=== PATIENT | female | born 1935 | race Caucasian/White ===

== ENCOUNTER 2019-11-04 08:16 | Inpatient (IN) ==
[2019-11-04] MEDS ORDERED: PANTOprazole 80 MG in DEXTROSE 5% 100 ML IV ONE (08:31)
[2019-11-04] MEDS ORDERED: SODIUM CHLORIDE 0.9% 1000ML 1,000 ML IV SCH (08:45)
[2019-11-04] MEDS ORDERED: PANTOprazole 40 MG in DEXTROSE 5% 100 ML IV SCH (08:45)
[2019-11-04 08:48] LABS: Basophils # (auto) 0.04 K/uL (0-0.2); Basophils % (auto) 0.2 %; Eosinophils # (auto) 0.05 K/uL (0-0.5); Eosinophils % (auto) 0.2 %; Hematocrit (blood only) 41.2 % (37-47); Hemoglobin 13.7 g/dL (12.0-16.0); Immature Granulocytes # (auto) 0.08 K/uL (0.00-0.02); Immature Granulocytes % (auto) 0.4 %; Lymphocytes # (auto) 2.85 K/uL (1.2-3.4); Lymphocytes % (auto) 13.8 %; Mean Corpuscular Hemoglobin 32.1 pg (25-34); Mean Corpuscular Hgb Conc 33.3 g/dL (32-36); Mean Corpuscular Volume 96.5 fL (80-100); Mean Platelet Volume 10.3 fL (7.4-10.4); Monocytes # (auto) 1.12 K/uL (0.11-0.59); Monocytes % (auto) 5.4 %; Neutrophils # (auto) 16.55 K/uL (1.4-6.5); Platelet Count 389 K/uL (130-400); RDW Coefficient of Variation 13.3 % (11.5-14.5); RDW Standard Deviation 46.8 fL (36.4-46.3); Red Blood Count 4.27 M/uL (4.2-5.4); White Blood Count 20.69 K/uL (4.8-10.8)
[2019-11-04 08:59] LABS: Albumin Level 2.8 gm/dl (3.4-5.0); BUN Creatinine Ratio 25.1 (10-20); Calcium 8.6 mg/dl (8.5-10.1); Creatinine Clr Calc Pharmacy 38.8 ml/min; Est GFR (African American) 61.8; Est GFR (Non-African American) 53.3; INR 1.1 (0.9-1.1); Partial Thromboplastin Ratio 0.9; Partial Thromboplastin Time 25.6 Seconds (21.0-31.0); Potassium 3.4 mmol/L (3.5-5.1); Prothrombin Time 11.9 Seconds (9.0-12.0)
[2019-11-04 09:02] LABS: Albumin Globulin Ratio 0.7 (0.9-2); Globulin 4.2 gm/dl (2.5-4.0)
[2019-11-04] MEDS ORDERED: AMPICILLIN/SULBACTAM SOD 3,000 MG in 0.9 % SODIUM CHLORIDE 100 ML IV STA (09:58)
[2019-11-04] MEDS ORDERED: IOVERSOL 100ml IV ONE (10:10)
--- NOTE | 2019-11-04 10:42 | CT Scan Report ---
CT OF THE ABDOMEN AND PELVIS WITH CONTRAST CLINICAL HISTORY: abd pain, BRBPR, elev WBC COMPARISON STUDY: None. TECHNIQUE: Following IV administration of 94 mL of Optiray-320, axial images of the abdomen and pelvi s were obtained from the lung bases to the proximal femurs. Images were reviewed in the axial, sagitt al, and coronal planes. IV contrast was administered without complication. Automated exposure contro l was utilized for the study. A dose lowering technique was utilized adhering to the principles of A MAR. CT DOSE: 560.77 mGy.cm FINDINGS: Lung bases are unremarkable. No pneumatosis, free air or portal venous gas is present. Ther e is mild elevation of the left hemidiaphragm. Note is made of a 1.6 cm hypodense lateral segment hep atic lesion adjacent to the falciform ligament. This may have peripheral enhancement. There is modera te dilatation of the common bile duct, measuring 1.5 cm in caliber. Diverticulum of the second duoden um is noted. There are gallstones within the gallbladder. Gallbladder is mildly distended. There is n o pericholecystic infiltration. The spleen, adrenal glands and left kidney are unremarkable. A 1.4 cm lesion within the midpole of the right kidney measures above water attenuation. There is sigmoid div erticulosis without evidence for acute diverticulitis. Note is made of a 2 cm outpouching with wall t hickening and moderate inflammation of the jejunum shown on axial image 220 of 476. Numerous addition al small bowel diverticula are noted. Endometrium is prominent. There is no evidence for a bowel obst ruction. No suspicious osseous lesions are noted. There is grade II anterolisthesis of L5 on S1 due t o bilateral L5 pars defects. IMPRESSION: 1. 2 cm jejunal outpouching with wall thickening and moderate inflammation consistent with acute jeju nal diverticulitis. No free air or abscess. 2. Moderate dilatation of the common bile duct. Findings could be correlated with obstructive liver f unction tests. 3. 2 probable gallstones. Mild gallbladder distention without convincing evidence for acute cholecyst itis. 4. 1.6 cm hypodense lesion within the lateral segment of the liver. This could reflect a hemangioma o r complex cyst. However, this lesion is indeterminate and a follow-up right upper quadrant ultrasound is recommended. 5. 1.4 cm right renal lesion which may reflect a hyperdense cyst or solid renal lesion. This can be a ssessed on right upper quadrant ultrasound. 6. Endometrial prominence which should be correlated with history of postmenopausal bleeding. Follow- up pelvic ultrasound is also recommended. ACT 112: Negative or not required by law. Electronically signed by: Nile Jacobs M.D. 11/04/2019 10:40 AM
--- NOTE | 2019-11-04 11:06 | History & Physical Report ---
Date of Service November 04, 2019 Assessment & Plan (1) Diverticulitis of jejunum: Zosyn 4.5 mg IV q8H (renally dosed per pharmacy) Follow-up blood cultures NPO IV LR 125ml/hr (2) Epigastric pain: Secondary to above (3) Black stool: Hgb 13.7 on admission. Suspect much of this was pepto-bismol although patient reports started prior to this. Repeat H&H this afternoon. If stable can switch from IV drip to pantoprazole 40mg IV BID. Consult gastroenterology. (4) Bright red blood per rectum: As above. No etiology on CT to account for this. (5) Liver lesion: LFTs unremarkable. Routine US RUQ. (6) Renal lesion: US RUQ as above. (7) Thickened endometrium: Follow up with PCP with pelvic US. (8) HTN (hypertension): Hold lisinopril/hydrochlorothiazide in setting of low normal blood press ure (9) Hyperlipemia: Hold lovastatin (10) DVT prophylaxis: SCDs Admission and Anticipated Discharge Date Admission Date: 11/04/2019 History of Present Illness Chief Complaint: Melena, bright red blood per rectum, epigastric pain. Primary Care Provider: MILLICENT Romano Suzi Mei is an 84 year old female who presents to the ER with 2 weeks of black stool and epigastric pain. She reports never having GI problems prior to this. No increase in NSAIDs or aspirin. Epigastric/left-sided abdominal pain, no radiation, no association with food, feels like "sandpaper scraping", current severity 0/10 without palpation, change in feeling with Pepto-Bismol which appeared to help. Initially associated with chills. Black stools started prior to Pepto-Bismol and have continued with small amounts over the last 2 weeks. [place] she may have been constipated during the last week and took 1 dose of MiraLAX which did not significantly alter her bowel movements. No associated nausea, vomiting or hematemesis. Usually takes Aleve once a week, not had this for a number of days. Takes daily aspirin 81 mg although also stopped this 3 days ago. Associated decrease in appetite for the last 2 weeks. She has never had a colonoscopy or EGD. She was seen during the two week illness by her primary care physician who performed fecal occult blood which was reportedly negative per patient recollection. She notes 1 of her liver enzymes was mildly elevated therefore she was advised to stop her lovastatin. She was started on pantoprazole but only taken this for the last 2 days. This morning she had very large bowel movements with bright red blood and dark maroon stool. She managed to walk downstairs but was feeling weak and shaky therefore called her daughter. She had a second large bowel movement and felt she could not wait for her daughter therefore called an ambulance. She denies any cough, shortness of breath, COVID-19 exposure. Updated the patient's daughter by her request - Maida Ruano - (daughter) [phone]. Allergies Allergy/AdvReac Type Severity Reaction Status Date / Time No Known Allergies Allergy Unverified 11/04/19 10:05 Home Medications Home Medications Medication Instructions Recorded Confirmed Type Glucosamine Chondroitin 1 cap PO QAM 07/26/18 11/04/19 History aspirin 81 mg PO DAILY 07/26/18 11/04/19 History ergocalciferol (vitamin D2) 50,000 unit PO WK 07/26/18 11/04/19 History [Vitamin D2] ginkgo biloba 120 mg PO QAM 07/26/18 11/04/19 History lisinopril-hydrochlorothiazide 1 tab PO QAM 07/26/18 11/04/19 History naproxen sodium [Aleve] 220 mg PO BID PRN 07/26/18 11/04/19 History lovastatin 10 mg PO DAILY 11/04/19 11/04/19 History pantoprazole 20 mg PO DAILY 11/04/19 11/04/19 History Past Med/Surg History Medical History Arthritis Hearing deficit [place] HTN (hypertension) Hyperlipemia Poor historian Surgical History H/O varicose vein stripping History of hemorrhoidectomy History of right inguinal hernia repair History of tooth extraction History of tubal ligation Family History Mother Family history of diabetes mellitus Social History Smoking Status: Never smoker Second Hand Exposure: No; Hx Alcohol Use: No Hx Substance Use: No Preferred Language: Chinese Communication Ability: Effective 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 No postmenopausal bleeding/bloating. Physical Exam Constitutional: well developed, well nourished and + obese; no acute distress Eyes: + anicteric sclerae; normal pupil size ENMT: external ear and nose normal, oropharynx normal Ears: + hearing impairment Neck: trachea midline, no thyromegaly Respiratory: normal respiratory effort, lungs clear to auscultation Cardiovascular: Rate/Rhythm: regular rate and regular rhythm Heart Sounds: + murmur (systolic, loudest in apex) Vessels: no JVD Extremities: normal capillary refill; no calf tenderness and no pedal edema Gastrointestinal (Abdomen): Inspection/Auscultation: abdomen normal to inspection and + hyperactive bowel sounds; abdomen not distended Percussion/Palpation: + abdomen tender (LUQ) and abdomen soft; no guarding and abdomen not rigid Musculoskeletal: no cyanosis or clubbing, extremities motor strength 5/5 Skin: no rashes, warm and dry Neurologic: moves all extremities and awake; not confused Psychiatric: A+Ox3, euthymic affect Genitourinary: no CVA tenderness Lymphatic: no cervical or axillary lymphadenopathy Results & Data Results & Data ([facility]) Vital Signs (Past 12 Hours) Vital Signs Temp Pulse Resp BP Pulse Ox 11/04/19 10:30 81 23 114/57 L 94 11/04/19 10:00 88 14 113/57 L 11/04/19 09:42 87 19 115/68 94 11/04/19 09:30 86 23 95 11/04/19 09:00 93 H 20 95 11/04/19 08:30 103 H 20 96 11/04/19 08:28 37.0 C 97 H 16 115/69 97 11/04/19 08:24 97 H 22 96 11/04/19 08:19 100 H 115/[address] OF THE ABDOMEN AND PELVIS WITH CONTRAST IMPRESSION: 1. 2 cm jejunal outpouching with wall thickening and moderate inflammation consistent with acute jejunal diverticulitis. No free air or abscess. 2. Moderate dilatation of the common bile duct. Findings could be correlated with obstructive liver function tests. 3. 2 probable gallstones. Mild gallbladder distention without convincing evidence for acute cholecystitis. 4. 1.6 cm hypodense lesion within the lateral segment of the liver. This could reflect a hemangioma or complex cyst. However, this lesion is indeterminate and a follow-up right upper quadrant ultrasound is recommended. 5. 1.4 cm right renal lesion which may reflect a hyperdense cyst or solid renal lesion. This can be assessed on right upper quadrant ultrasound. 6. Endometrial prominence which should be correlated with history of postmenopausal bleeding. Follow-up pelvic ultrasound is also recommended. ECG Indication: abdominal pain Rate (beats per minute): 97 Rhythm: normal sinus Comparison ECG Date: from (Aug 01 2018) Change: no significant change Code Status & VTE Plan Code Status DNR/DNI VTE Prophylaxis Plan VTE Prophylaxis will be ordered: Yes Reason for no VTE drug order: Contraindicated PG Care Time/CCT Total # of Minutes Spent Total Time Spent with Patient: Total time spent is greater than 50% in coordination of care (as documented) at patient's floor/unit and/or counseling patient: Coding Level of Care Code 05976 Initial Inpt Care Lvl 3 Diagnoses Diverticulitis of jejunum K57.12 Epigastric pain R10.13 Black stool K92.1 Bright red blood per rectum K62.5 Liver lesion K76.9 Renal lesion N28.9 Thickened endometrium R93.89 HTN (hypertension) I10 Hyperlipemia E78.5 DVT prophylaxis Z29.9
--- NOTE | 2019-11-04 13:14 | Emergency Department Note ---
History of Present Illness General Chief complaint: GI Assessment Source: patient and RN notes reviewed Mode of arrival: EMS Limitations: no limitations History of Present Illness Provider complaint: Bright red blood per rectum This patient is an 84-year-old female who presents emergency department with complaints of bright red blood per rectum this morning. The patient states she had a large bout of BM with blood "everywhere." She has had some upper abdominal discomfort and dark stools over the last several weeks and was told by her PCP to stop taking her cholesterol medication. The patient has been taking her aspirin daily as well as Aleve as needed. Patient denies any vomiting or severe abdominal pain. She has had no fever, cough, chest pain or shortness of breath. Home Medications Home Medications Medication Instructions Recorded Confirmed Type Glucosamine Chondroitin 1 cap PO QAM 07/26/18 11/04/19 History aspirin 81 mg PO DAILY 07/26/18 11/04/19 History ergocalciferol (vitamin D2) 50,000 unit PO WK 07/26/18 11/04/19 History [Vitamin D2] ginkgo biloba 120 mg PO QAM 07/26/18 11/04/19 History lisinopril-hydrochlorothiazide 1 tab PO QAM 07/26/18 11/04/19 History naproxen sodium [Aleve] 220 mg PO BID PRN 07/26/18 11/04/19 History lovastatin 10 mg PO DAILY 11/04/19 11/04/19 History pantoprazole 20 mg PO DAILY 11/04/19 11/04/19 History Allergies Allergy/AdvReac Type Severity Reaction Status Date / Time No Known Allergies Allergy Unverified 11/04/19 10:05 Past Med/Surg History Medical History Arthritis Hearing deficit [place] HTN (hypertension) Hyperlipemia Poor historian Surgical History H/O varicose vein stripping History of hemorrhoidectomy History of right inguinal hernia repair History of tooth extraction History of tubal ligation Family History Mother Family history of diabetes mellitus Social History Smoking Status: Never smoker Second Hand Exposure: No; Hx Alcohol Use: No Hx Substance Use: No Preferred Language: French Communication Ability: Effective Nuclear Operations Specialist Required: No Beliefs That Will Affect Care: None Current Living Situation: Alone Other Information That Helps Us Care for You: No Feels Safe at Home: Yes Safety Concerns: Feels Safe At This Time Review of Systems See HPI for pertinent positives & negatives. and A total of 10 systems reviewed and were otherwise negative Physical Exam Vital Signs Vital Signs - 24 hr 11/04/19 08:19 11/04/19 08:24 11/04/19 08:28 Temperature 37.0 C Temperature Source Oral Pulse Rate 100 H 97 H 97 H Pulse Rate from SpO2 Sensor 100 H 96 H Pulse Rhythm Regular Pulse Strength Normal Respiratory Rate 22 16 Respiratory Effort / Characteristics Non-Labored Respiratory Depth Normal Respiratory Pattern Regular Blood Pressure 115/69 115/69 Blood Pressure Mean 83 84 Blood Pressure Position Lying Pulse Oximetry 95 96 97 Oxygen Delivery Method Room Air Sepsis Recent Fever Within 48 Hours No Sepsis New/Unexplained Change in Mental Status No Sepsis Action Taken by Nursing No Action Required 11/04/19 08:30 11/04/19 08:36 11/04/19 09:00 Temperature Temperature Source Pulse Rate 103 H 93 H Pulse Rate from SpO2 Sensor 103 H 94 H Pulse Rhythm Pulse Strength Respiratory Rate 20 20 Respiratory Effort / Characteristics Respiratory Depth Respiratory Pattern Blood Pressure Blood Pressure Mean Blood Pressure Position Pulse Oximetry 96 95 Oxygen Delivery Method Room Air Sepsis Recent Fever Within 48 Hours Sepsis New/Unexplained Change in Mental Status Sepsis Action Taken by Nursing 11/04/19 09:30 11/04/19 09:42 11/04/19 10:00 Temperature Temperature Source Pulse Rate 86 87 88 Pulse Rate from SpO2 Sensor 86 87 Pulse Rhythm Pulse Strength Respiratory Rate 23 19 14 Respiratory Effort / Characteristics Respiratory Depth Respiratory Pattern Blood Pressure 115/68 113/57 L Blood Pressure Mean 90 65 Blood Pressure Position Pulse Oximetry 95 94 Oxygen Delivery Method Sepsis Recent Fever Within 48 Hours Sepsis New/Unexplained Change in Mental Status Sepsis Action Taken by Nursing 11/04/19 10:30 11/04/19 11:00 11/04/19 11:30 Temperature Temperature Source Pulse Rate 81 83 85 Pulse Rate from SpO2 Sensor 81 83 86 Pulse Rhythm Pulse Strength Respiratory Rate 23 24 16 Respiratory Effort / Characteristics Respiratory Depth Respiratory Pattern Blood Pressure 114/57 L 106/64 130/74 Blood Pressure Mean 68 72 103 Blood Pressure Position Pulse Oximetry 94 93 95 Oxygen Delivery Method Sepsis Recent Fever Within 48 Hours Sepsis New/Unexplained Change in Mental Status Sepsis Action Taken by Nursing Vital signs reviewed. General: Well-appearing 84-year-old female, in no significant distress. HEENT: No scleral icterus, pale conjunctiva, moist mucous membranes, PERRLA, neck supple. Cardiovascular: Regular rate and rhythm, no extra sounds. Pulmonary: Clear to auscultation bilaterally, normal work of breathing. Abdomen: Soft, minimal epigastric abdominal tenderness, nondistended, positive bowel sounds. Musculoskeletal: Atraumatic, no peripheral edema. Rectal: Bright red blood, guaiac positive. Normal external mucosa. Neurologic: Patient awake alert and oriented x 3 Skin: Warm, dry, no rash Course Administered Medications Discontinued Medications Pantoprazole Sodium 80 mg/ (Dextrose) 100 mls @ 400 mls/hr IV NOW ONE Stop: 11/04/19 08:45 Last Infusion: 11/04/19 10:44 Dose: 0 mls/hr Documented by: [id number] Admin: 11/04/19 09:57 Dose: 400 mls/hr Documented by: [id number] Pantoprazole Sodium 40 mg/ (Dextrose) 100 mls @ 20 mls/hr IV Q5H DIONY Stop: 11/04/19 13:44 Last Admin: 11/04/19 09:42 Dose: 8 mg/hr, 20 mls/hr Documented by: [id number] Sodium Chloride (Nss 1000ml) 1,000 mls @ 100 mls/hr IV .Q10H DIONY Stop: 11/04/19 18:44 Last Admin: 11/04/19 09:42 Dose: 100 mls/hr Documented by: [id number] Ampicillin Sodium/Sulbactam Sodium 3,000 mg/ Sodium Chloride 108 mls @ 200 mls/hr IV NOW STA; Protocol Stop: 11/04/19 10:30 Last Infusion: 11/04/19 10:44 Dose: 0 mls/hr Documented by: [id number] Admin: 11/04/19 10:39 Dose: 200 mls/hr Documented by: [id number] Ioversol (Ioversol 100ml) 94 ml IV ONCE ONE Stop: 11/04/19 10:11 Last Admin: 11/04/19 10:10 Dose: 94 ml Documented by: [id number] Medical Decision Making Differential Diagnosis Differential diagnosis: Etiologies such as esophagitis, variceal bleed, Boerhaaves, Lowell-Walters tear, gastritis, peptic ulcer disease, AVM, inflammatory bowel disease, ischemia, diverticulosis, colitis, malignancy, coagulopathy, thrombocytopenia, fissure, hemorrhoid, epistaxis , as well as others were entertained. Medical Records Attestation: I reviewed the patient's medical records. Home Medications Current Medication List: was personally reviewed by me Laboratory Data Attestation: I reviewed the patient's lab results. Result diagrams: 11/04/19 07:40 11/04/19 07:40 Lab Results 11/04/19 11/04/19 11/04/19 Range/Units 07:40 07:40 07:40 WBC 20.69 H (4.8-10.8) K/uL RBC 4.27 (4.2-5.4) M/uL Hgb 13.7 (12.0-16.0) g/dL Hct 41.2 (37-47) % MCV 96.5 (80-100) fL MCH 32.1 (25-34) pg MCHC 33.3 (32-36) g/dL RDW Std Deviation 46.8 H (36.4-46.3) fL RDW Coeff of Vanesa 13.3 (11.5-14.5) % Plt Count 389 (130-400) K/uL MPV 10.3 (7.4-10.4) fL Immature Gran % (Auto) 0.4 % Neut % (Auto) 80.0 % Lymph % (Auto) 13.8 % [place] % (Auto) 5.4 % Eos % (Auto) 0.2 % Baso % (Auto) 0.2 % Neut # (Auto) 16.55 H (1.4-6.5) K/uL Lymph # (Auto) 2.85 (1.2-3.4) K/uL [place] # (Auto) 1.12 H (0.11-0.59) K/uL Eos # (Auto) 0.05 (0-0.5) K/uL Baso # (Auto) 0.04 (0-0.2) K/uL Immature Gran # (Auto) 0.08 H (0.00-0.02) K/uL PT 11.9 (9.0-12.0) Seconds INR 1.1 (0.9-1.1) APTT 25.6 (21.0-31.0) Seconds PTT Ratio 0.9 Sodium 139 (136-145) mmol/L Potassium 3.4 L (3.5-5.1) mmol/L Chloride 104 (98-107) mmol/L Carbon Dioxide 26 (21-32) mmol/L Anion Gap 9.0 (3-11) BUN 25 H (7-18) mg/dl Creatinine 0.98 (0.6-1.2) mg/dl Est Cr Clr Drug Dosing 38.8 ml/min Est GFR ( Amer) 61.8 Est GFR (Non-Af Amer) 53.3 BUN/Creatinine Ratio 25.1 H (10-20) Glucose 161 H (70-99) mg/dl Calcium 8.6 (8.5-10.1) mg/dl Total Bilirubin 1.0 (0.2-1) mg/dl AST 18 (15-37) U/L ALT 23 (12-78) U/L Alkaline Phosphatase 99 (45-117) U/L Total Protein 7.0 (6.4-8.2) gm/dl Albumin 2.8 L (3.4-5.0) gm/dl Globulin 4.2 H (2.5-4.0) gm/dl Albumin/Globulin Ratio 0.7 L (0.9-2) Lipase 262 (73-393) U/L Blood Type Antibody Screen 11/04/19 Range/Units 09:05 WBC (4.8-10.8) K/uL RBC (4.2-5.4) M/uL Hgb (12.0-16.0) g/dL Hct (37-47) % MCV (80-100) fL MCH (25-34) pg MCHC (32-36) g/dL RDW Std Deviation (36.4-46.3) fL RDW Coeff of Vanesa (11.5-14.5) % Plt Count (130-400) K/uL MPV (7.4-10.4) fL Immature Gran % (Auto) % Neut % (Auto) % Lymph % (Auto) % [place] % (Auto) % Eos % (Auto) % Baso % (Auto) % Neut # (Auto) (1.4-6.5) K/uL Lymph # (Auto) (1.2-3.4) K/uL [place] # (Auto) (0.11-0.59) K/uL Eos # (Auto) (0-0.5) K/uL Baso # (Auto) (0-0.2) K/uL Immature Gran # (Auto) (0.00-0.02) K/uL PT (9.0-12.0) Seconds INR (0.9-1.1) APTT (21.0-31.0) Seconds PTT Ratio Sodium (136-145) mmol/L Potassium (3.5-5.1) mmol/L Chloride (98-107) mmol/L Carbon Dioxide (21-32) mmol/L Anion Gap (3-11) BUN (7-18) mg/dl Creatinine (0.6-1.2) mg/dl Est Cr Clr Drug Dosing ml/min Est GFR ( Amer) Est GFR (Non-Af Amer) BUN/Creatinine Ratio (10-20) Glucose (70-99) mg/dl Calcium (8.5-10.1) mg/dl Total Bilirubin (0.2-1) mg/dl AST (15-37) U/L ALT (12-78) U/L Alkaline Phosphatase (45-117) U/L Total Protein (6.4-8.2) gm/dl Albumin (3.4-5.0) gm/dl Globulin (2.5-4.0) gm/dl Albumin/Globulin Ratio (0.9-2) Lipase (73-393) U/L Blood Type B Positive Antibody Screen NEGATIVE Imaging Data Radiologist's Impression: CT OF THE ABDOMEN AND PELVIS WITH CONTRAST CLINICAL HISTORY: abd pain, BRBPR, elev WBC COMPARISON STUDY: None. TECHNIQUE: Following IV administration of 94 mL of Optiray-320, axial images of the abdomen and pelvis were obtained from the lung bases to the proximal femurs. Images were reviewed in the axial, sagittal, and coronal planes. IV contrast was administered without complication. Automated exposure control was utilized for the study. A dose lowering technique was utilized adhering to the principles of ALARA. CT DOSE: 560.77 mGy.cm FINDINGS: Lung bases are unremarkable. No pneumatosis, free air or portal venous gas is present. There is mild elevation of the left hemidiaphragm. Note is made of a 1.6 cm hypodense lateral segment hepatic lesion adjacent to the falciform ligament. This may have peripheral enhancement. There is moderate dilatation of the common bile duct, measuring 1.5 cm in caliber. Diverticulum of the second duodenum is noted. There are gallstones within the gallbladder. Gallbladder is mildly distended. There is no pericholecystic infiltration. The spleen, adrenal glands and left kidney are unremarkable. A 1.4 cm lesion within the midpole of the right kidney measures above water attenuation. There is sigmoid diverticulosis without evidence for acute diverticulitis. Note is made of a 2 cm outpouching with wall thickening and moderate inflammation of the jejunum shown on axial image 220 of 476. Numerous additional small bowel diverticula are noted. Endometrium is prominent. There is no evidence for a bowel obstruction. No suspicious osseous lesions are noted. 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 IMPRESSION: 1. 2 cm jejunal outpouching with wall thickening and moderate inflammation consistent with acute jejunal diverticulitis. No free air or abscess. 2. Moderate dilatation of the common bile duct. Findings could be correlated with obstructive liver function tests. 3. 2 probable gallstones. Mild gallbladder distention without convincing evidence for acute cholecystitis. 4. 1.6 cm hypodense lesion within the lateral segment of the liver. This could reflect a hemangioma or complex cyst. However, this lesion is indeterminate and a follow-up right upper quadrant ultrasound is recommended. 5. 1.4 cm right renal lesion which may reflect a hyperdense cyst or solid renal lesion. This can be assessed on right upper quadrant ultrasound. 6. Endometrial prominence which should be correlated with history of postmenopausal bleeding. Follow-up pelvic ultrasound is also recommended. ACT 112: Negative or not required by law. Electronically signed by: Nile Jacobs M.D. 11/04/2019 10:40 AM Dictated: 11/04/19 1025 Transcribed: 11/04/19 1025 ECG Data Attestation: I personally reviewed and interpreted this ECG as follows: Indication: + nausea and + other (GIB) Rate (beats per minute): 97 Rhythm: + sinus rhythm ECG Intervals/blocks: + Normal QRS ECG Shepherd: + Normal ECG ST segments: + Normal ST segments and + Nonspecific ST abnormalities ECG Findings: no PACs and no PVCs Blood Pressure Blood Pressure Findings: Normal blood pressure Blood Pressure Disposition: did not require urgent referral MDM Narrative This patient was evaluated and appeared to be in no significant distress. IV access was obtained and laboratory work was drawn. An order for cardiac monitoring was placed and the patient is noted to be in a normal sinus rhythm at 91 bpm. Patient was hydrated with normal saline solution. IV Protonix was initiated after rectal exam reveals bright red blood per rectum. Patient does have epigastric abdominal tenderness and reports dark stools for the last several weeks. CT imaging of the abdomen and pelvis was performed after the patient's laboratory work reveals a WBC of 20,000. Imaging is significant for a jejunal diverticulum with acute diverticulitis. IV Unasyn 3 g was administered. Patient was informed of the findings. She was discussed with the hospitalist who will evaluate the patient for admission and further management. Impression & Plan Diverticulitis of jejunum, Bright red blood per rectum Discharge Plan Visit Data Chief Complaint: GI Assessment ED Provider: Milady Patel Discharge Problem: Diverticulitis of jejunum, Bright red blood per rectum Patient Disposition: Admitted As Inpatient Discharge Instructions Interventions: ED Discharge Assessment Last Done: 11/04/19 12:49
[2019-11-04] MEDS ORDERED: PIPERACILL/TAZOBAC CONSULT ACTIVE PRN (13:55)
[2019-11-04] MEDS ORDERED: PIPERACILLIN/TAZOBACTAM 4.5 GM in DEXTROSE 5% 100 ML IV SCH (13:55)
[2019-11-04] MEDS ORDERED: PIPERACILLIN/TAZOBACTAM 3.375 GM in DEXTROSE 5% 100 ML IV ONE (14:15)
[2019-11-04] MEDS ORDERED: ACETAMINOPHEN 1,000 MG/100 ML VIAL IV PRN (15:00)
[2019-11-04] MEDS ORDERED: LACTATED RINGER'S 1,000 ML IV ONE (15:00)
--- NOTE | 2019-11-04 15:29 | Ultrasound Report ---
ULTRASOUND RIGHT UPPER QUADRANT ABDOMEN CLINICAL HISTORY: Follow-up hepatic and renal lesions. COMPARISON STUDY: Abdominal CT dated 11/04/2019. TECHNIQUE: Real-time, grayscale, and color flow sonography of the right upper quadrant of the abdomen was performed. Images are reviewed in the transverse and longitudinal planes. FINDINGS: Liver: The liver is normal in size and echotexture. There is no intrahepatic biliary ductal dilatatio n. The main portal vein is patent. A complex/septated cyst in the left lobe is seen adjacent to the f alciform ligament. This measures up to 1.9 cm. Gallbladder: The gallbladder is distended with prominent folds. Shadowing gallstones in the fundal re gion measuring up to 1.1 cm. There is no gallbladder wall thickening or pericholecystic fluid. A sono graphic Villanueva's sign is reportedly absent. The common bile duct measures up to 2.0 cm in diameter. Pancreas: Visualized portions of the pancreatic head and body are normal in appearance. The splenic v ein is patent. Right kidney: Survey images of the right kidney demonstrate cortical atrophy. Echotexture is normal. There is no hydronephrosis. There are scattered right renal cysts. A partially exophytic cyst measure s up to 1.3 cm. This corresponds to the lesion seen on CT Ascites: None. IMPRESSION: 1. Cholelithiasis mildly distended gallbladder. There is no sonographic evidence of acute cholecystit is. 2. There is extrahepatic biliary ductal dilatation, with the common bile duct measuring up to 2 cm di ameter. There is no significant intrahepatic biliary ductal dilatation. Correlation with liver functi on studies and serum bilirubin levels will be required. 3. There is a 1.9 cm minimally complex/septated cyst in the left lobe of the liver and a 1.3 cm exoph ytic cyst arising from the right kidney. These correspond to the cystic lesions seen by CT. ACT 112: Negative or not required by law. Electronically signed by: Shan Cali M.D. 11/04/2019 3:27 PM
--- NOTE | 2019-11-04 15:49 | Gastrointestinal Consultation ---
Date of Consultation November 04, 2019 Assessment & Plan (1) Diverticulitis of jejunum: (2) Epigastric pain: (3) Bright red blood per rectum: (4) Black stool: diverticulitis: agree with abx, will need a 7-10 day course. abdominal pain and GI bleeding: possible PUD, plan for EGD to further evaluate tomorrow. NPO postmidnight tonight, clear liquids for now continue IV PPI BID and supportive care rest as per primary team Thank you for allowing me to participate in the care of this patient. History of Present Illness Attending Physician: Mihai Garcia MD 84 yo female here with dark stool and abdominal pains. She notes this has been going on for a few weeks, even prior to her starting pepto bismol which did help her symptoms somewhat. She noted maroon and bright red blood per rectum on wiping as well, notes she used to take NSAIDs daily but has not done this for 1- 2 years. No prior EGD nor colonoscopy. Abdominal pains feels like "sandpaper scraping." She has a hx hemorrhoids as well she says 30 years ago. When she had brbpr this morning she was lightheaded and weak. CT A/P here shows jejunal diverticulitis and gallstones. labs reviewed, hgb 13.7, BUN elevated at 25. Allergies Allergy/AdvReac Type Severity Reaction Status Date / Time No Known Allergies Allergy Unverified 11/04/19 10:05 Home Medications Home Medications Medication Instructions Recorded Confirmed Type Glucosamine Chondroitin 1 cap PO QAM 07/26/18 11/04/19 History aspirin 81 mg PO DAILY 07/26/18 11/04/19 History ergocalciferol (vitamin D2) 50,000 unit PO WK 07/26/18 11/04/19 History [Vitamin D2] ginkgo biloba 120 mg PO QAM 07/26/18 11/04/19 History lisinopril-hydrochlorothiazide 1 tab PO QAM 07/26/18 11/04/19 History naproxen sodium [Aleve] 220 mg PO BID PRN 07/26/18 11/04/19 History lovastatin 10 mg PO DAILY 11/04/19 11/04/19 History pantoprazole 20 mg PO DAILY 11/04/19 11/04/19 History Patient History Medical History Arthritis Hearing deficit [place] HTN (hypertension) Hyperlipemia Poor historian Surgical History H/O varicose vein stripping History of hemorrhoidectomy History of right inguinal hernia repair History of tooth extraction History of tubal ligation Family History Mother Family history of diabetes mellitus Social History Smoking Status: Never smoker Second Hand Exposure: No; Hx Alcohol Use: No Hx Substance Use: No Preferred Language: [place] Communication Ability: Effective Engineering Technician Parking Required: No Beliefs That Will Affect Care: None Current Living Situation: Alone Other Information That Helps Us Care for You: No Feels Safe at Home: Yes Safety Concerns: Feels Safe At This Time Review of Systems Constitutional: no fever, no chills and no weight loss Eyes: as per Subjective / HPI Ear, Nose, Mouth, Throat: as per Subjective / HPI Respiratory: no dyspnea and no dyspnea on exertion Cardiovascular: no chest pain and no palpitations Gastrointestinal: as per Subjective / HPI Musculoskeletal: no joint pain and no swelling Integumentary: no rash and no lesions Neurologic: no numbness and no paresthesia Psychiatric: no depression and no anxiety Endocrine: no fatigue Hematologic / Lymphatic: no easy bleeding and no easy bruising Physical Exam Constitutional: WD/WN, vitals as above Eyes: EOM intact bilaterally Neck: normal visual inspection Respiratory: normal respiratory effort, lungs clear to auscultation Cardiovascular: RRR, no murmur, no edema Gastrointestinal (Abdomen): Inspection/Auscultation: abdomen normal to inspection; abdomen not distended Percussion/Palpation: abdomen soft; abdomen nontender and no hepatosplenomegaly Musculoskeletal: Extremities: no cyanosis Gait: normal gait Skin: no rashes, warm and dry Neurologic: moves all extremities Psychiatric: A+Ox3, euthymic affect Results & Data ([facility]) Vital Signs (Past 12 Hours) Vital Signs Temp Pulse Pulse Resp BP BP Pulse Ox 11/04/19 13:30 36.8 C 91 H 18 107/70 98 11/04/19 12:30 82 24 120/59 L 92 11/04/19 12:00 86 19 120/66 94 11/04/19 11:30 85 16 130/74 95 11/04/19 11:00 83 24 106/64 93 11/04/19 10:30 81 23 114/57 L 94 11/04/19 10:00 88 14 113/57 L 11/04/19 09:42 87 19 115/68 94 11/04/19 09:30 86 23 95 11/04/19 09:00 93 H 20 95 11/04/19 08:30 103 H 20 96 11/04/19 08:28 37.0 C 97 H 16 115/69 97 11/04/19 08:24 97 H 22 96 11/04/19 08:19 100 H 115/69 95 PG Care Time/CCT Total # of Minutes Spent Total Time Spent with Patient: Total time spent is greater than 50% in coordination of care (as documented) at patient's floor/unit and/or counseling patient: Coding Level of Care Code 22677 Initial Inpt Care Lvl 3 Diagnoses Diverticulitis of jejunum K57.12 Epigastric pain R10.13 Bright red blood per rectum K62.5 Black stool K92.1
[2019-11-04] MEDS: POTASSIUM CHLORIDE / WTR 10 MEQ/100 ML PLCT IV SCH ×2 (15:56→16:54)
[2019-11-04 15:59] LABS: Hematocrit (blood only) 35.9 % (37-47); Hemoglobin 12.1 g/dL (12.0-16.0)
[2019-11-04] MEDS: LACTATED RINGER'S 1,000 ML IV SCH ×2 (16:30→23:53)
[2019-11-04] MEDS: PIPERACILLIN/TAZOBACTAM 3.375 GM in DEXTROSE 5% 100 ML IV SCH (19:25)
[2019-11-04] MEDS: PANTOprazole 40 MG in SYRINGE 0 ML IV SCH (20:32)
[2019-11-05] MEDS ORDERED: Nursing to Pharmacy Communication SCH ×2 (01:00→16:00)
[2019-11-05] MEDS: PIPERACILLIN/TAZOBACTAM 3.375 GM in DEXTROSE 5% 100 ML IV SCH ×3 (04:17→20:12)
[2019-11-05 07:05] LABS: Basophils # (auto) 0.04 K/uL (0-0.2); Basophils % (auto) 0.6 %; Eosinophils # (auto) 0.08 K/uL (0-0.5); Eosinophils % (auto) 1.2 %; Hematocrit (blood only) 33.8 % (37-47); Immature Granulocytes # (auto) 0.01 K/uL (0.00-0.02); Immature Granulocytes % (auto) 0.2 %; Lymphocytes # (auto) 1.53 K/uL (1.2-3.4); Lymphocytes % (auto) 23.7 %; Mean Corpuscular Hemoglobin 31.2 pg (25-34); Mean Corpuscular Hgb Conc 32.5 g/dL (32-36); Mean Corpuscular Volume 95.8 fL (80-100); Monocytes # (auto) 0.43 K/uL (0.11-0.59); Monocytes % (auto) 6.7 %; Neutrophils # (auto) 4.37 K/uL (1.4-6.5); Neutrophils % (auto) 67.6 %; Platelet Count 303 K/uL (130-400); RDW Coefficient of Variation 13.2 % (11.5-14.5); Red Blood Count 3.53 M/uL (4.2-5.4); White Blood Count 6.46 K/uL (4.8-10.8)
[2019-11-05 07:09] LABS: Albumin Level 2.5 gm/dl (3.4-5.0); BUN Creatinine Ratio 19.3 (10-20); Calcium 8.9 mg/dl (8.5-10.1); Creatinine Clr Calc Pharmacy 50.1 ml/min; Est GFR (Non-African American) 68.2; Magnesium 2.2 mg/dl (1.8-2.4); Potassium 3.5 mmol/L (3.5-5.1)
[2019-11-05 07:16] LABS: Albumin Globulin Ratio 0.7 (0.9-2); Bilirubin,Total 0.7 mg/dl (0.2-1); Globulin 3.6 gm/dl (2.5-4.0); Total Protein 6.1 gm/dl (6.4-8.2)
[2019-11-05] MEDS: LACTATED RINGER'S 1,000 ML IV SCH ×2 (07:48→18:47)
[2019-11-05] MEDS: PANTOprazole 40 MG in SYRINGE 0 ML IV SCH ×2 (07:52→20:13)
[2019-11-05] MEDS ORDERED: GINKGO BILOBA 120 MG PO SCH (09:00)
[2019-11-05] MEDS ORDERED: NON-FORMULARY MEDICATION (Glucos Sul 2kcl-Msm-Chond-C-Mn [Glucosamine Chondroitin] 1 CAP) PO SCH (09:00)
--- NOTE | 2019-11-05 09:59 | History & Physical Bridge Note ---
Date of Service November 05, 2019 History & Physical Bridge Note I have examined the patient, reviewed the History & Physical and in the interval since the performance of the History & Physical I have noted the following changes of clinical significance: no changes noted. Patient states she has continued to pass dark and bloody stool overnight. Hgb 12.1 dropped with 11.0 this morning. PE: A&Ox3. RRR with systolic grade II murmur. Lungs CTA bilaterally. Abdomen soft, moderate tenderness in the epigastric region. Normal bowel sounds. A/P: Rectal bleeding and epigastric pain. Dr. Ramirez has ordered EGD for evaluation today. Further recommendations pending results of testing. Supervising Physician Co-Signing Physician Notes Proceed with EGD. risks/benefits and procedure discussed with patient, who agrees to proceed
--- NOTE | 2019-11-05 10:15 | Anesthesiology Consultation ---
Date of Service November 05, 2019 Assessment & Plan (1) Encounter for pre-operative examination: Chart Review Chart Review: Acceptable Risk for Surgery (awaiting COVID testing result) History Surgery Operation Date: 11/05/19 17:15 Proposed Procedures p Esophagogastroduodenoscopy Dr. Ramirez - Urbano Raimrez MD Height/Weight Height: 5 ft 2 in Weight: 73.8 kg Allergies Allergy/AdvReac Type Severity Reaction Status Date / Time No Known Allergies Allergy Unverified 11/04/19 10:05 Medications Home Medications Medication Instructions Recorded Confirmed Last Taken Glucosamine Chondroitin 1 cap PO QAM 07/26/18 11/04/19 08/11/18 aspirin 81 mg PO DAILY 07/26/18 11/04/19 08/08/18 ergocalciferol (vitamin D2) 50,000 unit PO WK 07/26/18 11/04/19 08/11/18 [Vitamin D2] ginkgo biloba 120 mg PO QAM 07/26/18 11/04/19 08/11/18 lisinopril-hydrochlorothiazide 1 tab PO QAM 07/26/18 11/04/19 08/14/18 naproxen sodium [Aleve] 220 mg PO BID PRN 07/26/18 11/04/19 3 Days Ago ~08/12/18 lovastatin 10 mg PO DAILY 11/04/19 11/04/19 Unknown pantoprazole 20 mg PO DAILY 11/04/19 11/04/19 Unknown Active Medications Generic Name Dose Route Start Last Admin Trade Name Freq PRN Reason Stop Dose Admin Lactated Ringer's 1,000 mls @ 125 mls/hr 11/04/19 13:55 11/05/19 07:48 Lr IV 12/04/19 13:54 125 mls/hr .Q8H DIONY Administration Piperacillin Sod/Tazobactam 115 mls @ 28.75 mls/hr 11/04/19 20:00 11/05/19 0 8:33 Sod 3.375 gm/ Dextrose IV 11/14/19 19:59 Infused Q8H DIONY Infusion Protocol Pantoprazole Sodium 40 mg/ 10 mls @ 5 mls/min 11/04/19 21:00 11/05/19 07:52 Syringe IV 12/04/19 20:59 5 mls/min BID DIONY Administration Miscellaneous 1 ea 11/04/19 16:00 11/05/19 07:48 Ergocalciferol Qwk - Order Awaiting Action N/A 12/04/19 15:59 Not Given QS DIONY NPO Date Last Intake of Fluids: 11/04/19 Date Last Intake of Solids: 11/04/19 Past Medical History Medical History Arthritis Hearing deficit [place] HTN (hypertension) Hyperlipemia Poor historian Past Family History Family History Mother Family history of diabetes mellitus Past Surgical History Surgical History H/O varicose vein stripping History of hemorrhoidectomy History of right inguinal hernia repair History of tooth extraction History of tubal ligation Social History Smoking Status: Never smoker Hx Alcohol Use: No Hx Substance Use: No substance use type: does not use Physical Exam Vital Signs Last Vital Signs Temp 36.9 C 11/05/19 07:15 Pulse 90 11/05/19 08:15 Resp 18 11/05/19 07:15 BP 119/71 11/05/19 07:15 Pulse Ox 96 11/05/19 07:15 Testing Laboratory Results 11/05/19 05:59 11/05/19 05:59 PT 11.9 Seconds (9.0-12.0) 11/04/19 07:40 INR 1.1 (0.9-1.1) 11/04/19 07:40 APTT 25.6 Seconds (21.0-31.0) 11/04/19 07:40 Blood Type B Positive 11/04/19 09:05 Antibody Screen NEGATIVE 11/04/19 09:05 Electrocardiogram Date: 11/04/19 Findings: + NSR @ (97)
--- NOTE | 2019-11-05 13:48 | Hospitalist Progress Note ---
Date of Service November 05, 2019 Assessment & Plan (1) Diverticulitis of jejunum: Conintue Zosyn - will need 7-10 day abx course Blood cultures pending NPO for EGD today Continue IV LR 125ml/hr (2) Epigastric pain: Secondary to above (3) Black stool: Hgb 13.7 on admission, now 11 Continue ppi push bid Consulted gastroenterology - EGD today (4) Bright red blood per rectum: GI consulted, no ellie blood seen today with bowel movements (5) Acute blood loss anemia: As above Continue to follow cbc (6) Liver lesion: LFTs unremarkable. liver US shows cholelithiasis and mildly distended gallbladder without evidence of acute cholecystitis. Extrahepatic biliary ductal dilation. No RUQ with palpation on exam, no elevation in LFTs 1.9 cm cyst of the left lobe of the liver (7) Renal lesion: 1.3 cm exophytic cyst arising from the right kidney (8) Thickened endometrium: Follow up with PCP with pelvic US. (9) HTN (hypertension): Resume lisinopril- hctz when taking po (10) Hyperlipemia: Resume lovastatin when taking po (11) Systolic murmur: Patient thinks maybe she was told someone heard a murmur many years ago but nothing recently. I do not see any recent echocardiograms She is asymptomatic. Could consider outpatient echocardiogram (12) DVT prophylaxis: SCDs, hold chemoprophylaxis for GI bleed Admission and Anticipated Discharge Date Admission Date: November 04, 2019 Subjective Ms. Gtz reports her abdominal pain has improved. She has had some watery/maroon bowel movements over the night. No nausea or vomiting. ROS Constitutional: no chills, aches, sweats or fever Respiratory: no sob,cough, sputum, or wheezing Cardiac: no chest pain, palpitations, edema, orthopnea or lightheadedness GI: see HPI : no dysuria or hesitancy Extremities: no joint pain or weakness Skin: no rash All other systems reviewed and negative Physical Exam Physical Exam: General: no distress Eyes: normal inspection, PERLL Respiratory: chest non tender, clear to auscultation, normal breath sounds, no respiratory distress, no accessory muscle use Cardiac: regular rate and rhythm, no rub or gallop, Systolic murmur 3/6 llsb, no edema, no jvd GI/: active bowel sounds, no abd pain or tenderness, soft, non distended Extremities: normal range of motion, normal strength, non tender Neuro/Psych: alert and oriented x 3, normal mood and affect Skin: normal color, dry Results & Data Results & Data ([facility]) Vital Signs (Past 12 Hours) Vital Signs Temp Pulse Pulse Pulse Resp BP Pulse Ox 11/05/19 13:11 36.8 C 87 87 20 149/81 H 97 11/05/19 11:59 36.8 C 97 H 18 133/70 97 11/05/19 08:15 90 11/05/19 07:15 36.9 C 79 18 119/71 96 11/05/19 03:16 36.5 C 75 15 120/64 95 PG Care Time/CCT Total # of Minutes Spent Total Time Spent with Patient: Total time spent is greater than 50% in coordination of care (as documented) at patient's floor/unit and/or counseling patient: Coding Level of Care Code 61733 Subseq Hosp Care Lvl 3 Diagnoses Diverticulitis of jejunum K57.12 Epigastric pain R10.13 Black stool K92.1 Bright red blood per rectum K62.5 Acute blood loss anemia D62 Liver lesion K76.9 Renal lesion N28.9 Thickened endometrium R93.89 HTN (hypertension) I10 Hyperlipemia E78.5 Systolic murmur R01.1 DVT prophylaxis Z29.9
--- NOTE | 2019-11-05 15:03 | GI REPORT ---
Patient Name: Suzi Gtz Procedure Date: 11/05/2019 2:05 PM Date of : 1935 Admit Type: Inpatient Age: 84 Gender: Female Attending MD: Urbano Ramirez MD Procedure: Upper GI endoscopy Providers: Urbano Ramirez MD Referring MD: Pranav Jackson Indications: Hematochezia, Melena Medicines: Monitored Anesthesia Care Complications: No immediate complications. Estimated blood loss: None. Estimated Blood Loss: Estimated blood loss: none. Procedure: Pre-Anesthesia Assessment: - Prior Anticoagulants: The patient has taken no previous anticoagulant or antiplatelet agents. - After reviewing the risks and benefits, the patient was deemed in satisfactory condition to undergo the procedure. - ASA Grade Assessment: II - A patient with mild systemic disease. After obtaining informed consent, the endoscope was passed under direct vision. Throughout the procedure, the patient's blood pressure, pulse, and oxygen saturations were monitored continuously. The Endoscope was introduced through the mouth, and advanced to the second part of duodenum. The upper GI endoscopy was accomplished without difficulty. The patient tolerated the procedure well. Findings: The examined esophagus was normal. Diffuse severe inflammation characterized by erythema was found in the stomach. Biopsies were taken with a cold forceps for Helicobacter pylori testing. Estimated blood loss: none. Few non-bleeding superficial gastric ulcers with no stigmata of bleeding were found in the gastric antrum. Estimated blood loss: none. The duodenal bulb and second portion of the duodenum were normal. No active bleeding throughout entire exam. Impression: - Normal esophagus. - Gastritis. Biopsied. - Non-bleeding gastric ulcers with no stigmata of bleeding. - Normal duodenal bulb and second portion of the duodenum. Recommendation: - [facility]. - Clear liquid diet today. - Await pathology results. -colonoscopy to further evaluate GI bleeding tomorrow -prep with aldair Ramirez MD 11/05/2019 3:03:28 PM This report has been signed electronically. Note Initiated On: 11/05/2019 2:05 PM Number of Addenda: 0 I attest to the content of the Intraoperative Record and orders documented therein, exceptions below {[id number]}
--- NOTE | 2019-11-05 15:04 | Procedure Note ---
Procedure Note Date of Service November 05, 2019 GI brief procedure note EGD severe gastritis biopsied, small superficial nonbleeding ulcers in the antrum. No blood throughout entire exam. Recs: PPI protonix BID clear liquids tonight, prep with golytely tonight colonoscopy tomorrow supportive care Urbano Ramirez MD Gastroenterology Coding
--- NOTE | 2019-11-05 15:21 | Anesthesiology Progress Note ---
Date of Service November 05, 2019 Anesthesia Post Procedure Vital Signs Vital Signs: Temp Pulse Pulse Pulse Resp BP Pulse Ox 11/05/19 15:10 80 79 18 109/54 L 93 11/05/19 14:55 87 77 16 95/52 L 93 11/05/19 14:50 85 11/05/19 13:11 36.8 C 87 87 20 149/81 H 97 11/05/19 11:59 36.8 C 97 H 18 133/70 97 11/05/19 08:15 90 11/05/19 07:15 36.9 C 79 18 119/71 96 11/05/19 03:16 36.5 C 75 15 120/64 95 11/05/19 00:29 37.7 C H 74 20 123/68 96 11/04/19 23:30 72 11/04/19 19:35 36.8 C 75 18 123/67 95 11/04/19 17:23 81 11/04/19 16:03 37.1 C 79 18 123/70 93 Transfer of Care Handoff Completed per policy Notes Mental Status: alert / awake / arousable Patient Amnestic to Procedure: Yes Nausea / Vomiting: adequately controlled Pain: adequately controlled Airway Patency, RR, SpO2: stable & adequate BP & HR: stable & adequate Hydration State: stable & adequate Anesthetic Complications: no major complications apparent
[2019-11-05] MEDS: LAVAGE SOLUTION 4000ML PO SCH (18:13)
--- NOTE | 2019-11-05 19:24 | Electrocardiogram Report ---
Test Reason : Blood Pressure : / mmHG Vent. Rate : 097 BPM Atrial Rate : 097 BPM P-R Int : 136 ms QRS Dur : 084 ms QT Int : 350 ms P-R-T Axes : 050 -20 035 degrees QTc Int : 444 ms Sinus rhythm Possible Left atrial enlargement Low voltage QRS Borderline ECG When compared with ECG of 01-AUG-2018 13:18, No significant change Confirmed by Reynaldo Bowser ([id number]) on 11/05/2019 7:24:16 PM Referred By: REFERRED SELF Confirmed By:Reynaldo Bowser
[2019-11-06] MEDS: LACTATED RINGER'S 1,000 ML IV SCH ×3 (02:20→20:26)
[2019-11-06] MEDS: PIPERACILLIN/TAZOBACTAM 3.375 GM in DEXTROSE 5% 100 ML IV SCH ×3 (03:59→20:23)
[2019-11-06] MEDS: LAVAGE SOLUTION 4000ML PO SCH (04:56)
[2019-11-06 06:42] LABS: Hematocrit (blood only) 29.2 % (37-47); Hemoglobin 9.9 g/dL (12.0-16.0); Mean Corpuscular Hemoglobin 31.7 pg (25-34); Mean Corpuscular Hgb Conc 33.9 g/dL (32-36); Mean Corpuscular Volume 93.6 fL (80-100); Mean Platelet Volume 9.7 fL (7.4-10.4); Platelet Count 322 K/uL (130-400); RDW Coefficient of Variation 12.9 % (11.5-14.5); RDW Standard Deviation 44.2 fL (36.4-46.3); Red Blood Count 3.12 M/uL (4.2-5.4); White Blood Count 4.51 K/uL (4.8-10.8)
[2019-11-06 07:18] LABS: Albumin Globulin Ratio 0.8 (0.9-2); Albumin Level 2.6 gm/dl (3.4-5.0); BUN Creatinine Ratio 7.2 (10-20); Bilirubin,Total 0.4 mg/dl (0.2-1); Calcium 8.4 mg/dl (8.5-10.1); Creatinine Clr Calc Pharmacy 54.3 ml/min; Est GFR (African American) 86.8; Est GFR (Non-African American) 74.9; Globulin 3.3 gm/dl (2.5-4.0); Potassium 3.2 mmol/L (3.5-5.1); Total Protein 5.9 gm/dl (6.4-8.2)
[2019-11-06] MEDS: PANTOprazole 40 MG in SYRINGE 0 ML IV SCH ×2 (07:45→21:09)
[2019-11-06] MEDS: POTASSIUM CHLORIDE / WTR 10 MEQ/100 ML PLCT IV SCH ×3 (08:26→10:19)
--- NOTE | 2019-11-06 10:41 | History & Physical Bridge Note ---
Date of Service November 06, 2019 History & Physical Bridge Note I have examined the patient, reviewed the History & Physical and in the interval since the performance of the History & Physical I have noted the following changes of clinical significance: Patient completed the entire bowel preparation. Reports passing some blood last evening but is now passing only clear liquid stool. No abdominal pain or other GI complaints. PE:A&Ox3. Heart RRR. Lungs CTA bilaterally. Bowel sounds normal. Nontender abdomen. No distention or firmness. A/P: Anemia with rectal bleeding. For colonoscopy today with Dr. Ramirez.
--- NOTE | 2019-11-06 11:12 | Hospitalist Progress Note ---
Date of Service November 06, 2019 Assessment & Plan (1) Diverticulitis of jejunum: * CTA/P on admission with 2 cm jejunal outpouching with wall thickening and moderate inflammation consistent with acute jejunal diverticulitis. * GI consulted -- appreciate assistance * Continue Zosyn - will need 7-10 day abx course (on day#2 of treatment) * s/p EGD on 11/04 which showed gastritis, biopsied. Non-bleeding gastric ulcers without stigmata of bleeding, normal duodenal bulb and second portion of duod enum * NPO for colonoscopy this afternoon * BCx NGTD * Continue IV LR 125ml/hr * h/h 9.9/29.2 -- expect some dilutional from IVF as well. Patient did state maroon stool with bowel prep * CBC in AM * Await colonoscopy results (2) Epigastric pain: * Secondary to above (3) Black stool: * Hgb 13.7 on admission -- trending down, although suspect some aspect of dilution from IVF * Continue ppi push bid * Consulted gastroenterology - colonscopy today (4) Bright red blood per rectum: * GI consulted * +FOCB (5) Acute blood loss anemia: * As above * Continue to follow cbc (6) Liver lesion: * LFTs unremarkable. * liver US shows cholelithiasis and mildly distended gallbladder without evidence of acute cholecystitis. Extrahepatic biliary ductal dilation. * No RUQ pain with palpation on exam, no elevation in LFTs * 1.9 cm cyst of the left lobe of the liver -- f/u with PCP (7) Renal lesion: * 1.3 cm exophytic cyst arising from the right kidney -- f/u with PCP (8) Thickened endometrium: * Follow up with PCP with pelvic US. (9) HTN (hypertension): * Resume lisinopril- hctz when taking po after colonoscopy * BP currently 158/77 * Hydralazine prn (10) Hyperlipemia: * Resume lovastatin when taking po (11) Systolic murmur: * Patient thinks maybe she was told someone heard a murmur many years ago but nothing recently. I do not see any recent echocardiograms * She is asymptomatic. Could consider outpatient echocardiogram (12) Hypokalemia: K 3.2 -- ordered IV replacement since NPO repeat labs in AM (13) DVT prophylaxis: * SCDs, hold chemoprophylaxis for GI bleed Dispo: colonoscopy this afternoon Admission and Anticipated Discharge Date Admission Date: November 04, 2019 Subjective Patient evaluated this morning. Abdominal pain decreased, more of a discomfort in epigastric/LUQ region. Plans for colonoscopy this afternoon. She states initially with the prep she had several "explosions" of maroon stool but cleared out as prep finished it's course. Denies fever, chills, chest pain, shortness of breath, nausea or vomiting at this time. Review of Systems Review of Systems: All systems reviewed & are unremarkable except as noted in HPI & below Physical Exam Constitutional: WD/WN, vitals as above no acute distress ENMT: mmm Neck: normal visual inspection Respiratory: normal respiratory effort, lungs clear to auscultation Cardiovascular: Rate/Rhythm: regular rate and regular rhythm Heart Sounds: + murmur (3/6 systolic ejection murmur); no cardiac rub Vessels: no JVD Extremities: normal capillary refill; no edema Gastrointestinal (Abdomen): Inspection/Auscultation: abdomen normal to inspection and normal bowel sounds Percussion/Palpation: + abdomen tender (minimally tender to palpation epigastric region) and abdomen soft Musculoskeletal: no cyanosis or clubbing, extremities motor strength 5/5 Skin: no rashes, warm and dry Neurologic: patellar DTR's 2+ bilat, sensation intact Psychiatric: A+Ox3, euthymic affect Lymphatic: no cervical or axillary lymphadenopathy Results & Data Results & Data ([facility]) Vital Signs (Past 12 Hours) Vital Signs Temp Pulse Pulse Resp BP Pulse Ox 11/06/19 08:00 77 11/06/19 07:34 36.3 C L 89 16 153/77 H 92 11/06/19 03:40 36.6 C 80 18 132/70 98 11/05/19 23:59 36.7 C 85 18 163/84 H 98 Laboratory Results 11/06/19 11/06/19 Range/Units 06:02 06:02 WBC 4.51 L (4.8-10.8) K/uL RBC 3.12 L (4.2-5.4) M/uL Hgb 9.9 L (12.0-16.0) g/dL Hct 29.2 L (37-47) % MCV 93.6 (80-100) fL MCH 31.7 (25-34) pg MCHC 33.9 (32-36) g/dL RDW Std Deviation 44.2 (36.4-46.3) fL RDW Coeff of Vanesa 12.9 (11.5-14.5) % Plt Count 322 (130-400) K/uL MPV 9.7 (7.4-10.4) fL Sodium 145 (136-145) mmol/L Potassium 3.2 L (3.5-5.1) mmol/L Chloride 110 H (98-107) mmol/L Carbon Dioxide 26 (21-32) mmol/L Anion Gap 9.0 (3-11) BUN 5 L D (7-18) mg/dl Creatinine 0.74 (0.6-1.2) mg/dl Est Cr Clr Drug Dosing 54.3 ml/min Est GFR ( Amer) 86.8 Est GFR (Non-Af Amer) 74.9 BUN/Creatinine Ratio 7.2 L (10-20) Glucose 89 (70-99) mg/dl Calcium 8.4 L (8.5-10.1) mg/dl Total Bilirubin 0.4 (0.2-1) mg/dl AST 16 (15-37) U/L ALT 18 (12-78) U/L Alkaline Phosphatase 64 (45-117) U/L Total Protein 5.9 L (6.4-8.2) gm/dl Albumin 2.6 L (3.4-5.0) gm/dl Globulin 3.3 (2.5-4.0) gm/dl Albumin/Globulin Ratio 0.8 L (0.9-2) PG Care Time/CCT Total # of Minutes Spent Total Time Spent with Patient: Total time spent is greater than 50% in coordination of care (as documented) at patient's floor/unit and/or counseling patient: Coding Level of Care Code 85963 Subseq Hosp Care Lvl 2 Diagnoses Diverticulitis of jejunum K57.12 Epigastric pain R10.13 Black stool K92.1 Bright red blood per rectum K62.5 Acute blood loss anemia D62 Liver lesion K76.9 Renal lesion N28.9 Thickened endometrium R93.89 HTN (hypertension) I10 Hyperlipemia E78.5 Systolic murmur R01.1 Hypokalemia E87.6 DVT prophylaxis Z29.9
[2019-11-06] MEDS ORDERED: ATROPINE SULFATE 0.1 MG/ML 10ML SYR IV PRN (15:39)
[2019-11-06] MEDS ORDERED: ePHEDrine sulfate 50 MG/ML AMP IV PRN (15:39)
--- NOTE | 2019-11-06 15:39 | Anesthesiology Consultation ---
Date of Service November 06, 2019 Assessment & Plan Chart Review Chart Review: Acceptable Risk for Surgery and Patient NOT seen in Pre Admission Testing Consults Requested none ASA ASA4 Proposed Anesthesia Anesthesia Type: MAC Risk / Benefits Reviewed With: PT / POA / Parent / Guardian, Accepts Plan and Informed Consent Obtained Additional Comments: covid test negative History Surgery Operation Date: 11/05/19 17:15 Proposed Procedures p Esophagogastroduodenoscopy Dr. James Ramirez MD Operation Date: 11/06/19 16:45 Proposed Procedures p Colonoscopy Dr. James Ramirez MD Height/Weight Height: 5 ft 2 in Weight: 74.2 kg Allergies Allergy/AdvReac Type Severity Reaction Status Date / Time No Known Allergies Allergy Unverified 11/06/19 15:35 Medications Home Medications Medication Instructions Recorded Confirmed Last Taken Glucosamine Chondroitin 1 cap PO QAM 07/26/18 11/04/19 08/11/18 aspirin 81 mg PO DAILY 07/26/18 11/04/19 08/08/18 ergocalciferol (vitamin D2) 50,000 unit PO WK 07/26/18 11/04/19 08/11/18 [Vitamin D2] ginkgo biloba 120 mg PO QAM 07/26/18 11/04/19 08/11/18 lisinopril-hydrochlorothiazide 1 tab PO QAM 07/26/18 11/04/19 08/14/18 naproxen sodium [Aleve] 220 mg PO BID PRN 07/26/18 11/04/19 3 Days Ago ~08/12/18 lovastatin 10 mg PO DAILY 11/04/19 11/04/19 Unknown pantoprazole 20 mg PO DAILY 11/04/19 11/04/19 Unknown Active Medications Generic Name Dose Route Start Last Admin Trade Name Freq PRN Reason Stop Dose Admin Lactated Ringer's 1,000 mls @ 125 mls/hr 11/04/19 13:55 11/06/19 15:12 Lr IV 12/04/19 13:54 0 mls/hr .Q8H DIONY Infusion Pantoprazole Sodium 40 mg/ 10 mls @ 5 mls/min 11/04/19 21:00 11/06/19 07:45 Syringe IV 12/04/19 20:59 5 mls/min BID DIONY Administration Piperacillin Sod/Tazobactam 115 mls @ 28.75 mls/hr 11/05/19 20:00 11/06/19 15:30 Sod 3.375 gm/ Dextrose IV 11/14/19 19:59 Infused Q8H DIONY Infusion Protocol Miscellaneous 1 ea 11/04/19 16:00 11/06/19 15:12 Ergocalciferol Qwk - Order Awaiting Action N/A 12/04/19 15:59 Not Given QS DIONY NPO Date Last Intake of Fluids: 11/06/19 Time Last Intake of Fluids: 06:30 Last Intake of Fluids Comment: last evening Date Last Intake of Solids: 11/03/19 Past Medical History Medical History Arthritis Hearing deficit [place] HTN (hypertension) Hyperlipemia Poor historian Exercise / Class Metabolic Activity III < 4 Walking/Shop/Light housework Past Family History Family History Mother Family history of diabetes mellitus Past Surgical History Surgical History H/O varicose vein stripping History of hemorrhoidectomy History of right inguinal hernia repair History of tooth extraction History of tubal ligation Past Anesthesia History No Hx of Anesthesia Complications and No Family Hx of Anesthesia Complications History of PONV No Hx of PONV and No Hx of Motion Sickness Social History Smoking Status: Never smoker Hx Alcohol Use: No Hx Substance Use: No substance use type: does not use Physical Exam Vital Signs Last Vital Signs Temp 37.0 C 11/06/19 15:23 Pulse 87 11/06/19 15:23 Resp 16 11/06/19 15:23 BP 166/87 H 11/06/19 15:23 Pulse Ox 96 11/06/19 15:23 Constitutional + obese ENMT Mouth: + dentition abnormality, + dentures and + edentulous Thyromental Distance: < 3.5 Finger Breadths Mallampati Class: II Neck normal visual inspection and trachea midline; neck extension not limited Respiratory normal respiratory effort Auscultation: lungs clear to auscultation bilaterally Cardiovascular Rate/Rhythm: regular rate and regular rhythm Heart Sounds: no murmur Vessels: no carotid bruit Musculoskeletal Spine: normal cervical ROM Extremities: extremities normal to inspection Neurologic moves all extremities Motor/Sensory: no sensory deficit Psychiatric Orientation: alert and oriented x 3 Testing Laboratory Results 11/06/19 06:02 11/06/19 06:02 PT 11.9 Seconds (9.0-12.0) 11/04/19 07:40 INR 1.1 (0.9-1.1) 11/04/19 07:40 APTT 25.6 Seconds (21.0-31.0) 11/04/19 07:40 Blood Type B Positive 11/04/19 09:05 Antibody Screen NEGATIVE 11/04/19 09:05 11/04/19 15:47 Aerobic Blood Culture - Preliminary Blood No growth in Aerobic bottle after 24 hours. Anaerobic Blood Culture - Final 11/04/19 15:37 Aerobic Blood Culture - Preliminary Blood No growth in Aerobic bottle after 24 hours. Anaerobic Blood Culture - Preliminary No growth in Anaerobic bottle after 24 hours.
[2019-11-06] MEDS ORDERED: LIDOCAINE HCL 2% 2 ML VIAL/AMP(20MG/ML) INFIL ONE (15:58)
[2019-11-06] MEDS ORDERED: PROPOFOL IV EMULSION 10 MG/ML 20 ML VIAL IV ONE ×2 (15:58→16:25)
--- NOTE | 2019-11-06 16:30 | GI REPORT ---
Patient Name: Suzi Gtz Procedure Date: 11/06/2019 3:33 PM Date of : 1935 Admit Type: Inpatient Age: 84 Gender: Female Attending MD: Urbano Ramirez MD Procedure: Colonoscopy Providers: Urbano Ramirez MD Referring MD: Pranav Jackson Indications: Hematochezia Medicines: Monitored Anesthesia Care Complications: No immediate complications. Estimated blood loss: None. Estimated Blood Loss: Estimated blood loss: none. Procedure: Pre-Anesthesia Assessment: - Prior Anticoagulants: The patient has taken no previous anticoagulant or antiplatelet agents. - ASA Grade Assessment: II - A patient with mild systemic disease. After I obtained informed consent, the scope was passed under direct vision. Throughout the procedure, the patient's blood pressure, pulse, and oxygen saturations were monitored continuously. The scope was introduced through the anus and advanced to the cecum, identified by appendiceal orifice and ileocecal valve. The colonoscopy was performed without difficulty. The patient tolerated the procedure well. The quality of the bowel preparation was good except the ascending colon was fair. Findings: Three sessile polyps were found in the sigmoid colon. The polyps were 3 mm in size. These polyps were removed with a cold biopsy forceps. Resection and retrieval were complete. Estimated blood loss: none. Multiple small and large-mouthed diverticula were found in the sigmoid colon and descending colon. Estimated blood loss: none. Non-bleeding external and internal hemorrhoids were found. The hemorrhoids were medium-sized. No active bleeding nor old blood noted throughout entire exam. Impression: - Three 3 mm polyps in the sigmoid colon, removed with a cold biopsy forceps. Resected and retrieved. - Diverticulosis in the sigmoid colon and in the descending colon. - Non-bleeding external and internal hemorrhoids. Recommendation: - Return patient to [facility] for [facility] care. - Advance diet as tolerated today. - Await pathology results. -avoid NSAIDS strictly going forward, suspect diverticular bleeding was the cause of her GI bleed. supportive care, rest as per primary team Urbano Ramirez MD 11/06/2019 4:30:11 PM This report has been signed electronically. Note Initiated On: 11/06/2019 3:33 PM Number of Addenda: 0 I attest to the content of the Intraoperative Record and orders documented therein, exceptions below {[id number]}
--- NOTE | 2019-11-06 16:32 | Procedure Note ---
Procedure Note Date of Service November 06, 2019 GI brief procedure note: colonoscopy findings: diverticulosis, hemorrhoids, few polyps removed. No active bleeding nor old blood noted. suspect diverticular bleeding was cause of her GI bleed Recs: avoid NSAIDs strictly going forward advance diet as tolerated supportive care, rest as per primary team f/u path results Urbano Ramirez MD Gastroenterology Coding
--- NOTE | 2019-11-06 16:36 | Anesthesiology Progress Note ---
Date of Service November 06, 2019 Anesthesia Post Procedure Vital Signs Vital Signs: Temp Pulse Pulse Pulse Resp BP Pulse Ox 11/06/19 15:42 86 11/06/19 15:23 37.0 C 87 16 166/87 H 96 11/06/19 15:15 36.9 C 88 16 164/84 H 95 11/06/19 11:29 37.0 C 84 20 158/77 H 96 11/06/19 08:00 77 11/06/19 07:34 36.3 C L 89 16 153/77 H 92 11/06/19 03:40 36.6 C 80 18 132/70 98 11/05/19 23:59 36.7 C 85 18 163/84 H 98 11/05/19 23:07 82 11/05/19 17:20 36.6 C 85 18 147/76 H 97 Transfer of Care Handoff Completed per policy Notes Mental Status: alert / awake / arousable Patient Amnestic to Procedure: Yes Nausea / Vomiting: adequately controlled Pain: adequately controlled Airway Patency, RR, SpO2: stable & adequate BP & HR: stable & adequate Hydration State: stable & adequate Anesthetic Complications: no major complications apparent
[2019-11-07] MEDS ORDERED: Nursing to Pharmacy Communication SCH (02:00)
[2019-11-07] MEDS: LACTATED RINGER'S 1,000 ML IV SCH ×2 (03:28→11:31)
[2019-11-07] MEDS: PIPERACILLIN/TAZOBACTAM 3.375 GM in DEXTROSE 5% 100 ML IV SCH ×2 (03:28→11:31)
[2019-11-07 06:01] LABS: Hematocrit (blood only) 32.7 % (37-47); Hemoglobin 10.8 g/dL (12.0-16.0); Mean Corpuscular Hemoglobin 31.3 pg (25-34); Mean Corpuscular Volume 94.8 fL (80-100); Mean Platelet Volume 9.3 fL (7.4-10.4); Platelet Count 377 K/uL (130-400); RDW Coefficient of Variation 13.1 % (11.5-14.5); RDW Standard Deviation 44.9 fL (36.4-46.3); Red Blood Count 3.45 M/uL (4.2-5.4); White Blood Count 4.34 K/uL (4.8-10.8)
[2019-11-07 06:38] LABS: BUN Creatinine Ratio 3.4 (10-20); Calcium 8.6 mg/dl (8.5-10.1); Creatinine Clr Calc Pharmacy 53.6 ml/min; Est GFR (African American) 85.4; Est GFR (Non-African American) 73.7; Magnesium 1.9 mg/dl (1.8-2.4); Potassium 3.3 mmol/L (3.5-5.1)
[2019-11-07] MEDS ORDERED: POTASSIUM CHLORIDE 20 MEQ TABCR PO STA (08:21)
[2019-11-07] MEDS: PANTOprazole 40 MG in SYRINGE 0 ML IV SCH (08:46)
--- NOTE | 2019-11-07 12:05 | Gastroenterology Progress Note ---
Date of Service November 07, 2019 Assessment & Plan (1) Diverticulitis of jejunum: (2) Bright red blood per rectum: (3) Black stool: 1. Complete a 10 day course of antibiotics upon discharge. 2. Remain on a low residue diet for now. 3. Continue supportive care. 4. Stable for discharge from GI standpoint if cleared by primary team. 5. Follow up in the office within 2 weeks of discharge. Admission and Anticipated Discharge Date Admission Date: November 04, 2019 Subjective Patient is feeling better. Bleeding has resolved. Continues oral antibiotics. No active bleeding noted on colonoscopy yesterday. Hemoglobin up to 10.8. Review of Systems Review of Systems: All systems reviewed & are unremarkable except as noted in HPI & below Physical Exam Constitutional: WD/WN, vitals as above well developed and well nourished Neck: normal visual inspection Respiratory: normal respiratory effort, lungs clear to auscultation Cardiovascular: Rate/Rhythm: regular rate and regular rhythm Gastrointestinal (Abdomen): normal bowel sounds, soft, nontender, no hepatosplenomegaly Results & Data Results & Data ([facility]) Vital Signs (Past 12 Hours) Vital Signs Temp Pulse Pulse Resp BP Pulse Ox 11/07/19 11:34 37.0 C 80 18 116/70 97 11/07/19 08:11 80 11/07/19 07:46 36.6 C 77 20 154/70 H 96 11/07/19 02:46 36.7 C 79 18 133/74 92 Laboratory Results Abnormal lab results 11/07/19 11/07/19 Range/Units 05:34 05:34 WBC 4.34 L (4.8-10.8) K/uL RBC 3.45 L (4.2-5.4) M/uL Hgb 10.8 L (12.0-16.0) g/dL Hct 32.7 L (37-47) % Potassium 3.3 L (3.5-5.1) mmol/L Chloride 109 H (98-107) mmol/L BUN 3 L (7-18) mg/dl BUN/Creatinine Ratio 3.4 L (10-20) PG Care Time/CCT Total # of Minutes Spent Total Time Spent with Patient: Total time spent is greater than 50% in coordination of care (as documented) at patient's floor/unit and/or counseling patient: Coding Level of Care Code 90326 Subseq Hosp Care Lvl 3 Diagnoses Diverticulitis of jejunum K57.12 Bright red blood per rectum K62.5 Black stool K92.1
--- NOTE | 2019-11-07 15:14 | Discharge Summary ---
Date of Service November 07, 2019 Admission HPI Per Admitting Provider Suzi Mei is an 84 year old female who presents to the ER with 2 weeks of black stool and epigastric pain. She reports never having GI problems prior to this. No increase in NSAIDs or aspirin. Epigastric/left-sided abdominal pain, no radiation, no association with food, feels like "sandpaper scraping", current severity 0/10 without palpation, change in feeling with Pepto-Bismol which appeared to help. Initially associated with chills. Black stools started prior to Pepto-Bismol and have continued with small amounts over the last 2 weeks. [place] she may have been constipated during the last week and took 1 dose of MiraLAX which did not significantly alter her bowel movements. No associated nausea, vomiting or hematemesis. Usually takes Aleve once a week, not had this for a number of days. Takes daily aspirin 81 mg although also stopped this 3 days ago. Associated decrease in appetite for the last 2 weeks. She has never had a colonoscopy or EGD. She was seen during the two week illness by her primary care physician who performed fecal occult blood which was reportedly negative per patient recollection. She notes 1 of her liver enzymes was mildly elevated therefore she was advised to stop her lovastatin. She was started on pantoprazole but only taken this for the last 2 days. This morning she had very large bowel movements with bright red blood and dark maroon stool. She managed to walk downstairs but was feeling weak and shaky therefore called her daughter. She had a second large bowel movement and felt she could not wait for her daughter therefore called an ambulance. She denies any cough, shortness of breath, COVID-19 exposure. Updated the patient's daughter by her request - Maida Ruano - (daughter) [phone]. Principal Diagnosis Diverticulitis of the jejunum, non bleeding gastric ulcer Discharge Exam Constitutional WD/WN, vitals as above Respiratory normal respiratory effort, lungs clear to auscultation Cardiovascular RRR, no murmur, no edema Gastrointestinal (Abdomen) normal bowel sounds, soft, nontender, no hepatosplenomegaly Musculoskeletal no cyanosis or clubbing, extremities motor strength 5/5 Skin no rashes, warm and dry Neurologic moves all extremities and awake Psychiatric A+Ox3, euthymic affect Discharge Data Allergies Allergy/AdvReac Type Severity Reaction Status Date / Time No Known Allergies Allergy Unverified 11/06/19 15:35 Consultations 11/04/19 11:12 ED Decision to Admit Stat 11/04/19 13:55 Consult Gastroenterology Routine Procedures Performed Operation Date: 11/05/19 17:15 Actual Procedures p EGD Biopsy Cytology - Urbano Ramirez MD Operation Date: 11/06/19 16:45 Actual Procedures p Colonoscopy Polypectomy - Urbano Ramirez MD Ordered Studies 11/04/19 09:22 CT abd pelvis IV con only Stat 11/04/19 13:55 US liver Routine Hospital Course (1) Diverticulitis of jejunum: * CTA/P on admission with 2 cm jejunal outpouching with wall thickening and moderate inflammation consistent with acute jejunal diverticulitis. * GI consulted -- appreciate assistance * Inpatient Zosyn, will transition to cipro/flagyl for home - will need 10 day abx course * s/p EGD on 11/04 which showed gastritis, biopsied. Non-bleeding gastric ulcers without stigmata of bleeding, normal duodenal bulb and second portion of duodenum. Discontinue ASA, NSAIDs, transition to daily 40 mg pantoprazole. Low residue diet * Colonoscopy showing diverticulosis, hemorrhoids, polyps. Biopsies negative for malignancy * BCx NGTD * hgb stable around 11 (2) Epigastric pain: * Secondary to above (3) Black stool: * Hgb 13.7 on admission -- stable around 11 * Given ppi push bid - will transition to daily po pantoprazole 40 mg * Consulted gastroenterology - colonoscopy as above (4) Bright red blood per rectum: * GI consulted * +FOCB (5) Acute blood loss anemia: * As above (6) Liver lesion: * LFTs unremarkable. * liver US shows cholelithiasis and mildly distended gallbladder without evidence of acute cholecystitis. Extrahepatic biliary ductal dilation. * No RUQ pain with palpation on exam, no elevation in LFTs * 1.9 cm cyst of the left lobe of the liver -- f/u with PCP (7) Renal lesion: * 1.3 cm exophytic cyst arising from the right kidney -- f/u with PCP (8) Thickened endometrium: * Follow up with PCP with pelvic US. (9) HTN (hypertension): * Resumed lisinopril- hctz when taking po after colonoscopy (10) Hyperlipemia: * Resumed lovastatin (11) Systolic murmur: * Patient thinks maybe she was told someone heard a murmur many years ago but nothing recently. I do not see any recent echocardiograms * She is asymptomatic. Could consider outpatient echocardiogram (12) Hypokalemia: Replaced (13) DVT prophylaxis: * SCDs, hold chemoprophylaxis for GI bleed Total Time Total Time Spent Total Time Spent (In Minutes): greater than 30 minutes Discharge Plan Discharge Items Patient Disposition: Home - Self-Care Reason For Visit: JEJUNAL DIVERTICULITIS Discharge Diagnosis: Diverticulitis, gastric ulcer Activity: Resume your previous activity Non-emergency contact: Primary Care Provider Call non-emergency contact if: you have any medication questions and your sym ptoms worsen Follow-up/Referrals: Pan Booth, [Physician] - 11/27/19 1:00 pm (You have an appt with Dr Ramirez on MondayNov 26 at 1pm. Please arrive 15 minutes prior to your appt. If this appt does not fit your schedule, please call and reschedule. Remember your face mask. [address] [facility] [address] ) Puja Miranda CRNP [Primary Care Provider] - 11/14/19 9:00 am (You have a follow up with your PCP on Nov 13 at 9am. Please arrive 15 minutes prior to your appt time, if this appt does not fit your schedule please call and reschedule. Remember to bring your face mask with you. [address] [phone]) Diet: Other - See Diet Comment Diet Comment: low residue diet Addtl Attending Provider Instructions: (1) Diverticulitis of jejunum, non bleeding gastric ulcers : Your CT and colonoscopy on 11/05 showed diverticulitis of your small bowel. You will need to complete 8 more days of antibiotics - ciprofloxacin twice per day and metronidazole three times per day. Your endoscopy on 11/04 showed gastritis and Non-bleeding gastric ulcers. Biopsies were taken of both your stomach and colon and both were negative for malignancy (2) Liver and Renal cysts Your imaging showed a 1.9 cm cyst of the left lobe of the liver and 1.3 cm exophytic cyst arising from the right kidney - please follow up with your primary care provider (3) Thickened endometrium: Your imaging also showed a thickened endometrium. Please follow up with your primary care provider for further imaging such as a pelvic US. Pending Studies at Discharge: No Stand-Alone Forms: [facility], Smoking Cessation Medications and DC Order Prescriptions: New ciprofloxacin HCl 500 mg tablet 500 mg PO BID Qty: 16 RF: 0 metronidazole [Flagyl] 500 mg tablet 500 mg PO TID Qty: 24 RF: 0 pantoprazole 40 mg tablet,delayed release (DR/EC) 40 mg PO DAILY Qty: 30 RF: 1 Continued ergocalciferol (vitamin D2) [Vitamin D2] 50,000 unit Capsule 50,000 unit PO WK RF: 0 lisinopril-hydrochlorothiazide 10-12.5 mg Tablet 1 tab PO QAM RF: 0 Glucosamine Chondroitin 550-30-1 mg Capsule 1 cap PO QAM RF: 0 lovastatin 10 mg tablet 10 mg PO DAILY RF: 0 Discontinued aspirin 81 mg Tablet,Delayed Release (Dr/Ec) 81 mg PO DAILY RF: 0 naproxen sodium [Aleve] 220 mg Tablet 220 mg PO BID PRN (Reason: Pain) RF: 0 ginkgo biloba 120 mg Tablet 120 mg PO QAM RF: 0 pantoprazole 20 mg tablet,delayed release (DR/EC) 20 mg PO DAILY RF: 0 Discharge Orders: Discharge Order (Routine); Ordered 11/07/19 Ordered By: Shalonda Montes/Other Patient Handouts: Low-Fiber Diet Admission Data Admit Date/Time: 11/04/19 11:35 Attending Provider: Pranav Jackson Admit Provider: Mihai Garcia Primary Care Provider: Puja Miarnda Other Providers: Mihai Garcia ; Pan Booth Other Interventions: Discharge Summary Assessment (RN) Last Done: 11/07/19 15:17 Supervising Physician Co-Signing Physician Notes Patient seen and examined on the day of discharge. I agree with the discharge summary by Shalonda RICKS. I have reviewed the chart including labs, imaging and plans for discharge. Patient feeling much better, minimal abdominal pain, eating well, no nausea vitals stable, labs stable - Small bowel diverticulitis: responded well to IV antibiotics d/c home on course of PO antibiotics vitals stable, no fever, no abdominal pain Coding Level of Care Code D/C Day Management >30 mins Diagnoses Diverticulitis of jejunum K57.12 Epigastric pain R10.13 Black stool K92.1 Bright red blood per rectum K62.5 Acute blood loss anemia D62 Liver lesion K76.9 Renal lesion N28.9 Thickened endometrium R93.89 HTN (hypertension) I10 Hyperlipemia E78.5 Systolic murmur R01.1 Hypokalemia E87.6 DVT prophylaxis Z29.9
[2019-11-10] MEDS ORDERED: ERGOCALCIFEROL 50,000 UNITS CAP PO SCH (09:00)
== END 2019-11-07 16:07 | disposition home or self-care (01) | DRG 378 ==
LOC: ED 08:16 → 2N 11:35 → SUATTDRO 11:35 → 2N 12:49

== ENCOUNTER 2023-01-29 19:01 | Inpatient (IN) ==
--- OUTSIDE RECORDS SUMMARY | 2023-01-29 19:08 | External Medical Summary | Continuity of Care Document ---
Author Name Unknown Organization [facility] Address [address] [place] [address] [id number] Care Team Providers Care Staff Developer Name Role Phone OndinaPamela pete Luz Primary Care Physician [phone] Encounter [facility] [id number] Date(s): 10/19/22 - 10/19/[address] [phone] Encounter Diagnosis Rectal mass(Discharge Diagnosis) - 10/19/22 Disease of anus and rectum, unspecified(Final) - Discharge Disposition: Home or Self Care Attending Physician: MD Julieta, Onofre Alvarado Allergies, Adverse Reactions, Alerts No Known Allergies Functional Status 10/19/22 Neurological Symptoms None ADLs Minimal assistance Facial Symmetry Symmetric Gait Unable to assess Swallowing Difficulty None Level of Consciousness Neuro Alert Hallucinations Present None Speech Pattern Clear 10/19/22 History of Fall in Last 3 Months Cheema N o Presence of Secondary Diagnosis Cheema No Use of Ambulatory Aid Cheema None/bedrest /nurse assist IV/Heparin Lock Fall Risk Cheema Yes Gait/Transferring Fall Risk Cheema Normal /bedrest/immobile Mental Status Fall Risk Cheema Oriented t o own ability Cheema Fall Risk Score 20 Cheema Fall Risk No Risk Immunizations Given and Recorded Vaccine Date Status Refusal Reason SARS-CoV-2 (COVID-19) mRNA BNT-162b2 vax 1 05/15/20 Recorded SARS-CoV-2 (COVID-19) mRNA BNT-162b2 vax 2 04/24/20 Recorded pneumococcal 7-valent vaccine 3 02/01/10 Recorded tetanus toxoids-diphtheria, Td (Adult) 4 09/06/99 Recorded 1Result Comment: 2020-11-05: Historical information-source unspecified 2Result Comment: 2020-11-05: Historical information-source unspecified 3Result Comment: 2020-11-05: Historical information-source unspecified 4Result Comment: 2020-11-05: Historical information-source unspecified Medications hydroCHLOROthiazide-lisinopril 12.5 mg-10 mg oral tablet Start: 01/18/22 14:08:00 EST, See Instructions, Disp# 90 tab, Refills: 0, Take 1 tablet by mouth once daily, Pharmacy: [id number] Start Date: 01/18/22 Status: Ordered lovastatin 10 mg oral tablet Start: 01/18/22 14:08:00 EST, See Instructions, Disp# 90 tab, Refills: 0, Take 1 tablet by mouth once daily, Pharmacy: [id number] Start Date: 01/18/22 Status: Ordered oxyCODONE 5 mg oral tablet Start: 10/19/22 16:08:00 EDT, 1 tab, PO, q4h, Disp# 18 tab, Refills: 0, PRN: as needed for pain, Pharmacy: [facility] Start Date: 10/19/22 Status: Ordered Mental Status 10/19/22 Communication Barrier Present No Primary Language Hebrew Problem List Condition Confirmation Course Effective Dates Status H ealth Status Informant 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 Benign essential HTN Confirmed Active Hyperlipidemia Confirmed Active Left shoulder pain Confirmed Active Diagnosis Diagnosis Type Effective Dates Health Status [facility] Service Informant Rectal mass Discharge Diagnosis 10/19/22 Non-Specified Procedures Procedure Date Related Diagnosis Body Site Status Colonoscopy Completed Hemorrhoidectomy Complete d Hernia repair Completed Vital Signs Most recent to oldest [Reference Range]: 1 2 3 Height 151.5 cm (10/19/22 12:56 PM) Patient Weight 71.4 kg (10/19/22 12:56 PM) Body Mass Index 31.11 kg/m2 (10/19/22 5:14 PM) 31.11 kg/m2 (10/19/22 12:56 PM) Temperature [36.5-37.9 DegC] 36.6 DegC (10/19/22 5:14 PM) 36.3 DegC *LOW* (10/19/22 4:46 PM) 36.5 DegC (10/19/22 4:24 PM) Heart Rate 88 bpm (10/19/22 5:14 PM) 84 bpm (10/19/22 5:00 PM) 84 bpm (10/19/22 4:50 PM) Respiratory Rate 18 br/min (10/19/22 5:14 PM) 18 br/min (10/19/22 5:00 PM) 18 br/min (10/19/22 4:50 PM) Blood Pressure 145/70mmHg (10/19/22 5:14 PM) 150/71mmHg (10/19/22 4:50 PM) 137/77mmHg (10/19/22 4:46 PM) Mean Blood Pressure 94 mmHg (10/19/22 4:50 PM) 94 mmHg (10/19/22 4:40 PM) 108 mmHg (10/19/22 4:30 PM) Cuff Pulse Pressure 75 mmHg (10/19/22 5:14 PM) 79 mmHg (10/19/22 4:50 PM) 60 mmHg (10/19/22 4:40 PM) BP Location # 1 Right Arm, Non-invasive (10/19/22 4:30 PM) Right Arm, Non-invasive (10/19/22 4:24 PM) Right Arm (10/19/22 12:19 PM) Social History Social History Type Response Smoking Status Never smoked cigaret sandra Sex Female Anes H&P * MD Ruby, Jj Saldivar: MODIFY, PERFORM, SIGN, VERIFY Event Display: Anes H&P Authored Date: [id number] Patient: ZHANG GARCIA Age: 87 years Sex: Female : 1935 Associated Diagnoses: None Author: MD Ruby, Jj Saldivar Preoperative Information Pre-Operative Diagnosis: Rectal polyp . Anesthiesia Preop Info: Procedure: exam under anesthesia of rectum and transanal excision distal rectal polyp Date: 10/19/22 13:50 Surgeons: MD Julieta, Onofre Alvarado Diagnosis: rectal polyp . Nursing Information: Nurse Pre Procedure Screening Assessment 10/04/2022 11:41 EDT Cardiovascular History Of HTN Controlled, Dyslipidemia Anesthesia History Yes PostOp Nausea & Vomiting No Family Anesthesia History No prior anesthesia complications Pulmonary History None Reported Functional Capacity 4-6 METs Moderate Climbing a flight of stairs, No chest pain or dyspnea with this level of exercise Gastrointestinal History None Reported . Medical History Medical Devices: Medical Devices: none . Pt is a 87yo 71kg female with pmh of hypertension (hydrochlorothiazide, JESSICA-I) and hyperlipidemia (statin) presenting for rectal exam and excision of distal rectal polyp. Prior anesthesia complications: None documented Airway: No prior airways documented Recent Labs: None documented Recent Imaging: None documented Echo: None documented Health Status Allergies: Allergic Reactions (Selected) No Known Medication Allergies. Medications: Medication List (Selected) Prescriptions Prescribed hydroCHLOROthiazide-lisinopril 12.5 mg-10 mg oral tablet: See Instructions, Take 1 tablet by mouth once daily, 90 tab, 0 Refill(s) lovastatin 10 mg oral tablet: See Instructions, Take 1 tablet by mouth once daily, 90 tab, 0 Refill(s). Histories Procedure History: Colonoscopy (532046733). Hernia repair (69250915). Hemorrhoidectomy (03920752).. Social History: Cigarrette Smoker? Never smoked cigarettes Other Tobacco Use: Never used other tobacco products Alcohol: Recreational Drugs: . Physical Examination VS/Measurements: Weight 71.4 kg. Airway: Mallampati classification: II (soft palate, fauces, uvula visible). Mouth: Within normal limits, Teeth ( Within normal limits ). Respiratory: Breath sounds: Within normal limits. Cardiovascular: Normal rate, Regular rhythm. Anesthesiologist Assessment and Plan Problems: No active cardiac conditions. ASA Classification: Class II. Anesthetic Plan: Anesthetic technique discussed: General anesthesia. Induction discussed: Intravenously. Airway plan discussed: Oral endotracheal tube. Risks discussed: Nausea-vomiting, Headache, Sore throat, Dental injury, Eye injury, Allergic reaction, Serious complications, Nerve damage, Aspiration. Informed consent: Signed by patient. History, Physical Exam, Assessment and Plan Completed: 10/19/2022 13:50:00, MD Ruby, Jj Wynn Electronic Signature on File Electronically Reviewed/Signed by: Jj Beltran MD Author Signature Dt/Tm:10/19/2022 02:04 PM Department of Anesthesia [facility] * MD Julieta, Onofre Alvarado: PERFORM Event Display: Pre-OP H & P Authored Date: [id number] PRE-OPERATIVE HISTORY AND PHYSICAL Name: ZHANG GARCIA Patient Number: [id number] : 1935 Date of Service: 10/19/2022 Please see clinic note from 09/09/22 for full details Right lateral mass with prolapse, plan for transanal excision Electronic Signature on File Electronically Reviewed/Signed by: Onofre Rendon MD Author Signature Dt/Tm:10/19/2022 01:43 PM Division of Colorectal Surgery [facility] * MD Rendon Michael J: PERFORM Event Display: Pre-OP H & P Authored Date: SURGICAL HISTORY AND PHYSICAL UPDATE - NO CHANGE Name: ZHANG GARCIA Patient Number: [id number] : 1935 Date of Service: 10/19/2022 Patient identity, procedure and procedure site were identified by me, the attending physician. I have personally seen and examined the patient. The History and Physical was reviewed, and there are nochanges in the patient's condition. I have confirmed that the necessity for the procedure is still p resent. Electronic Signature on File Electronically Reviewed/Signed by: Onofre Rendon MD Author Signature Dt/Tm:10/19/2022 03:08 PM Division of Colorectal Surgery [facility] Surgical pathology study * MD Levy Cunfeng: VERIFY MD Levy Cunfeng: VERIFY, PERFORM Event Display: SP Gross Authored Date: 1. Received in formalin, labeled with patient's name, medical record number, and "right lateral anal lesion", is a single irregularly shaped pink-red fragment of soft tissue measuring 1.7 x 1.4 x 0.7cm. The resection margin is inked black and the fragment is serially sectioned. The specimen is entirely submitted. Block summary: 1A-1B. (SCW) * MD Levy Cunfeng: TRANSCRIBE, PERFORM, VERIFY Event Display: SP Micro Authored Date: [id number] Performed, see diagnosis. * MD Levy Cunfeng: VERIFY MD Levy Cunfeng: VERIFY, PERFORM Event Display: SP Clinical History Authored Date: Pre-operative diagnosis: 87-year-old female. Rectal mass. Post-operative diagnosis: _ Signs and symptoms: _ _ Time out of body: _ Time in fixative: _ Special instructions: _ * MD Levy Cunfeng: TRANSCRIBE, PERFORM, VERIFY Event Display: SP Dx Authored Date: [id number] 1. Right lateral anal lesion, excision: -Transitional zone mucosa with hyperplastic epithelial change of glandular mucosa and superficial ulcer -No dysplasia Comment: The finding is nonspecific and suggestive o solitary rectal ulcer. Differential diagnosis includes inflammatory pseudopolyp, hyperplastic polyp with inflammation. Odin Levy MD (Electronically signed by) Verified: 10/21/2022 10:28 EDT Performing Location: [facility] * MD Levy Cunfeng: VERIFY MD Levy Cunfeng: VERIFY, PERFORM Event Display: SP Disclaimer Authored Date: [id number] The following statement applies to flow cytometry, immunohistochemical, histochemical, molecular genetics, immunofluorescence, and in situ hybridization assays. These tests were developed and their performance characteristics determined by a [facility] Department of Pathology Laboratory. All controls show appropriate reactivity. Not all tests have been cleared or approved by the U.S. Food and Drug Administration. The FDA has determined that such clearance or approval is not necessary. For decalcified specimen types, focused validation may have been done that may or may not apply to all decalcified specimen types. Results should be interpreted with caution. Patient Care team information Care Team Personnel Name: Mike Wang Brittani Position: Pharmacist Member Role: Pharmacy - Lifetime Name: TJ Nye Jessica A Position: Physician Asst Exmpt - Family Med Member Role: Primary Care Provider Address: Address: [address] [place] [id number]
--- OUTSIDE RECORDS SUMMARY | 2023-01-29 19:08 | External Medical Summary | Continuity of Care Document ---
Author Name Unknown Organization [address] [id number] Care Team Providers Care Certified Composites Technician Name Role Phone Pamela Nye Primary Care Physician [phone] [facility]counter [facility] [id number] Date(s): 09/09/22 - 09/09/[address] [address] [phone] Encounter Diagnosis Rectal polyp(Discharge Diagnosis) - 09/09/22 Anal symptoms(Discharge Diagnosis) - 09/09/22 Discharge Disposition: Home or Self Care Attending Physician: MD Rendon Michael J Referring Physician: TJ Nye Jessica A Allergies, Adverse Reactions, Alerts No Known Medication Allergies Immunizations Given and Recorded Vaccine Date Status [...] 1 tablet by mouth once daily, Pharmacy: [id number] Start Date: 01/18/22 Status: Ordered lovastatin 10 mg oral tablet Start: 01/18/22 14:08:00 EST, See Instructions, Disp# 90 tab, Refills: 0, Take 1 tablet by mouth once daily, Pharmacy: [id number] Start Date: 01/18/22 Status: Ordered Problem List Condition Confirmation Course Effective Dates Status H ealth Status Informant 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 Benign essential HTN Confirmed Active Hyperlipidemia Confirmed Active Left shoulder pain Confirmed Active Diagnosis Diagnosis Type Effective Dates Health Status Cl inical Service Informant Anal symptoms Discharge Diagnosis 09/09/22 Non-Specified Rectal polyp Discharge Diagnosis 09/09/22 Non-Specified Vital Signs Most recent to oldest [Reference Range]: 1 Patient Weight 71.4 kg (09/09/22 11:23 AM) Heart Rate 78 bpm (09/09/22 11:23 AM) Blood Pressure 102/70mmHg (09/09/22 11:23 AM) Cuff Pulse Pressure 32 mmHg (09/09/22 11:23 AM) Social History Social History Type Response Smoking Status Never smoked cigaret sandra Sex Female Patient Care team information Care Team Personnel Name: TJ Nye, Pamela Escobar Position: Physician Asst Ashli[place] - Family Med Member Role: Primary Care Provider Address: Address: [address] [place] [id number]
--- OUTSIDE RECORDS SUMMARY | 2023-01-29 19:08 | External Medical Summary | Continuity of Care Document ---
Author Name Unknown Organization [address] [id number] Care Team Providers Care Rehab Assistant Name Role Phone Pamela Nye Primary Care Physician [phone] [id number] Date(s): 11/25/22 - 11/25/[address] [address] [phone] Encounter Diagnosis Rectal mass(Discharge Diagnosis) - 11/25/22 Discharge Disposition: Home or Self Care Attending Physician: MD Rendon Michael J Allergies, Adverse Reactions, Alerts No Known Allergies Assessment and Plan Extracted from: Title:Clinical Document Author:MD Julieta, Jasvir Alvarado Date:11/25/22 COLORECTAL OUTPATIENT NOTE Name: ZHANG GARCIA Patient Number: [id number] : 1935 Date of Service: 11/25/2022 Chief Complaint: post op follow up HPI: The patient is an 87 year old female with a past medical history significant for HTN and HLD as well as constipation and stomach ulcers who presents for evaluation of anal drainage and possible anal polyps. Patient reports her symptoms started approximately few months ago. She initially thought that these were hemorrhoids at which time she went to be seen by her primary care. An exam was performed where there was concern for a polyp. She feels that it is draining out all the time. This is created a leaking problem. She typically sees a yellow to mucoid type drainage which can be difficult to clean. Given that the patient has tried some hemorrhoidal ointment which had marginal effect. This she comes in for further evaluation and treatment. Patient's last colonoscopy was in 2019 at which time scope was otherwise normal. Currently moving her bowels every other day. This is somewhat variable though. Denies any blood in the commode although will see some on the tissue paper with aggressive wiping. Denies any family history of colorectal cancer. 11/25/22 Returns today in follow up. On 10/19/22 she went to the OR for rectal exam under anesthesia, transanal excision of distal rectal mass. Final pathology showed: Diagnosis (Verified) 1. Right lateral anal lesion, excision: -Transitional zone mucosa with hyperplastic epithelial change of glandular mucosa and superficial ulcer -No dysplasia Comment: The finding is nonspecific and suggestive o solitary rectal ulcer. Differential diagnosis includes inflammatory pseudopolyp, hyperplastic polyp with inflammation. Overall doing well. Did have some leakage issues which have just recently resolved. Moving bowels about every 2-3 days now. Denies any rectal bleeding or rectal pain with BMs. Feels complete with evacuation. Stools are slightly on the smaller side. Current Home Meds: (Last Updated 11/25 12:12) hydroCHLOROthiazide-lisinopril (hydroCHLOROthiazide-lisinopril 12.5 mg-10 mg oral tablet) Take 1 tablet by mouth once daily lovastatin (lovastatin 10 mg oral tablet) Take 1 tablet by mouth once daily oxyCODONE (oxyCODONE 5 mg oral tablet) 5 mg PO q4h PRN: as needed for pain Allergies and Sensitivities: NKA No Known Medication Allergies Past Medical History: Problems: Arthritis of left glenohumeral joint Left shoulder pain Hyperlipidemia Benign essential HTN OBJECTIVE Vitals: Last Updated 11/25/22 12:12 Date Temp BP Location Pulse RR SpO2 Pain 11/25/22 128/80 45 16 98 0 10/19/22 36.6 145/70 88 18 96 10/19/22 84 18 96 0 Vital Signs are the last 3 documented. No Orthostatic Data Available Height and Weight: Last Updated 11/25/22 12:12 Date BMI Wt(kg) Wt(lb) Method Ht(cm) (ft-in) Method 11/25/22 71.7 158 Standing Scale 10/19/22 31.11 10/19/22 31.11 71.4 157 Bed Scale 151.5 4-11 Standing Heights and Weights are the last 3 documented. Physical Exam General: NADs Rectal: Scarring / prior surgery: near complete healed posterior right scar without recurrence Fecal Soiling: Purulence: Blood or Mucus drainage: Excoriations: Erythema: Perinal body: Hemorrhoidal disease: Skin tags: External fistula opening: Rectal Prolapse: Neoplasm: Other: 30 Day Labs: No 30 Day Lab Data. ASSESSMENT: 87 year old with distal rectal polyp benign and removed PLAN: 1 ) At this time follow up as needed 2 ) Continue high fiber diet as tolerated 3 ) She has a great future Immunizations Given and Recorded Vaccine Date Status [...] 1 tablet by mouth once daily, Pharmacy: [id number] Start Date: 01/18/22 Status: Ordered lovastatin 10 mg oral tablet Start: 01/18/22 14:08:00 EST, See Instructions, Disp# 90 tab, Refills: 0, Take 1 tablet by mouth once daily, Pharmacy: [id number] Start Date: 01/18/22 Status: Ordered oxyCODONE 5 mg oral tablet Start: 10/19/22 16:08:00 EDT, 1 tab, PO, q4h, Disp# 18 tab, Refills: 0, PRN: as needed for pain, Pharmacy: [facility] [place] Start Date: 10/19/22 Status: Ordered Mental Status 11/25/22 Barriers to Learning one year None evide nt Mandatory Health Literacy Documentation Yes Health Literacy Communication Barriers N ever Primary Language Congolese Problem List Condition Confirmation Course Effective Dates Status H ealth Status Informant 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 Benign essential HTN Confirmed Active Hyperlipidemia Confirmed Active Left shoulder pain Confirmed Active Diagnosis Diagnosis Type Effective Dates Health Status Clini luciano Service Informant Rectal mass Discharge Diagnosis 11/25/22 Non-Specified Procedures Procedure Date Related Diagnosis Body Site Status Colonoscopy Completed Hemorrhoidectomy Complete d Hernia repair Completed Vital Signs Most recent to oldest [Reference Range]: 1 Patient Weight 71.7 kg (11/25/22 12:12 PM) Heart Rate 45 bpm (11/25/22 12:12 PM) Respiratory Rate 16 br/min (11/25/22 12:12 PM) Blood Pressure 128/80mmHg (11/25/22 12:12 PM) Social History Social History Type Response Smoking Status Never smoked cigaret sandra Sex Female Colorectal Outpt Note * MD Julieta, Onofre Alvarado: PERFORM, MODIFY, MODIFY, MODIFY, MODIFY, MODIFY, MODIFY, MODIFY Event Display: Colorectal Outpt Note Authored Date: [id number] COLORECTAL OUTPATIENT NOTE Name: ZHANG GARCIA Patient Number: [id number] : 1935 Date of Service: 11/25/2022 Chief Complaint: post op follow up HPI: The patient is an 87 year old female with a past medical history significant for HTN and HLD as well as constipation and stomach ulcers who presents for evaluation of anal drainage and possible anal polyps. Patient reports her symptoms started approximately few months ago. She initially thought that these were hemorrhoids at which time she went to be seen by her primary care. An exam was performed where there was concern for a polyp. She feels that it is draining out all the time. This is created a leaking problem. She typically sees a yellow to mucoid type drainage which can be difficult to clean. Given that the patient has tried some hemorrhoidal ointment which had marginal effect. This she comes in for further evaluation and treatment. Patient's last colonoscopy was in 2019 at which time scope was otherwise normal. Currently moving her bowels every other day. This is somewhat variable though. Denies any blood in the commode although will see some on the tissue paper with aggressive wiping. Denies any family history of colorectal cancer. 11/25/22 Returns today in follow up. On 10/19/22 she went to the OR for rectal exam under anesthesia, transanal excision of distal rectal mass. Final pathology showed: Diagnosis (Verified) 1. Right lateral anal lesion, excision: -Transitional zone mucosa with hyperplastic epithelial change of glandular mucosa and superficial ulcer -No dysplasia Comment: The finding is nonspecific and suggestive o solitary rectal ulcer. Differential diagnosis includes inflammatory pseudopolyp, hyperplastic polyp with inflammation. Overall doing well. Did have some leakage issues which have just recently resolved. Moving bowels about every 2-3 days now. Denies any rectal bleeding or rectal pain with BMs. Feels complete with evacuation. Stools are slightly on the smaller side. Current Home Meds: (Last Updated 11/25 12:12) hydroCHLOROthiazide-lisinopril (hydroCHLOROthiazide-lisinopril 12.5 mg-10 mg oral tablet) Take 1 tablet by mouth once daily lovastatin (lovastatin 10 mg oral tablet) Take 1 tablet by mouth once daily oxyCODONE (oxyCODONE 5 mg oral tablet) 5 mg PO q4h PRN: as needed for pain Allergies and Sensitivities: NKA No Known Medication Allergies Past Medical History: Problems: Arthritis of left glenohumeral joint Left shoulder pain Hyperlipidemia Benign essential HTN OBJECTIVE Vitals: Last Updated 11/25/22 12:12 Date Temp BP Location Pulse RR SpO2 Pain 11/25/22 128/80 45 16 98 0 10/19/22 36.6 145/70 88 18 96 10/19/22 84 18 96 0 Vital Signs are the last 3 documented. No Orthostatic Data Available Height and Weight: Last Updated 11/25/22 12:12 Date BMI Wt(kg) Wt(lb) Method Ht(cm) (ft-in) Method 11/25/22 71.7 158 Standing Scale 10/19/22 31.11 10/19/22 31.11 71.4 157 Bed Scale 151.5 4-11 Standing Heights and Weights are the last 3 documented. Physical Exam General: NADs Rectal: Scarring / prior surgery: near complete healed posterior right scar without recurrence Fecal Soiling: Purulence: Blood or Mucus drainage: Excoriations: Erythema: Perinal body: Hemorrhoidal disease: Skin tags: External fistula opening: Rectal Prolapse: Neoplasm: Other: 30 Day Labs: No 30 Day Lab Data. ASSESSMENT: 87 year old with distal rectal polyp benign and removed PLAN: 1 ) At this time follow up as needed 2 ) Continue high fiber diet as tolerated 3 ) She has a great future Electronic Signature on File CC: Pamela Nye PA-C,[address] [facility] [place] [address] Electronically Reviewed/Signed by: Onofre Rendon MD Author Signature Dt/Tm:11/25/2022 12:27 PM Division of Colorectal Surgery [facility] Patient Care team information Care Team Personnel Name: Mike Wang Brittani Position: Pharmacist Member Role: Pharmacy - Lifetime Name: TJ Nye, Pamela Escobar Position: Physician Asst Exmpt - Family Med Member Role: Primary Care Provider Address: Address: [address] [place] [id number]
--- NOTE | 2023-01-29 19:40 | Emergency Department Note ---
History of Present Illness General Chief complaint: Leg Injury/Pain Stated complaint: LEG PAIN,HEART FLUTTER Time Seen by Provider: 01/29/23 19:19 Source: patient, family (Family member who is at the bedside), RN notes reviewed and old records reviewed (I have reviewed old records from a discharge summary from the hospital or 11-04-2019. She was admitted for GI bleed) Mode of arrival: ambulatory Limitations: no limitations History of Present Illness Maximum Pain Intensity: 7 This patient 87-year-old female who comes in with pain in her legs as well as chest pain she has had pain in her legs for months. She was told by a home health nurse she had poor circulation. She says it makes her unsteady when she walks at times she had no fall her feet feel burning at times at night. She had an episode around 5:00 this evening also where she feeling her heart was fluttering like it was beating hard or fast. It lasted less than an hour. No shortness of breath or any other symptoms associated with this no pain in the arm neck or back she said it really was not a pain. She has had no fever or chills or redness or warmth. No history of DVT Home Medications Medication Instructions Recorded Confirmed Type lisinopril 10 1 tab PO QAM 07/26/18 10/06/21 History mg-hydrochlorothiazide 12.5 mg tablet lovastatin 10 mg tablet 10 mg PO QAM 11/04/19 10/06/21 History hydrocortisone 2.5 % topical cream 1 applic LA BID hemorrhoids #30 12/02/19 10/06/21 Rx with perineal applicator grams (Anusol-HC) hydrocortisone acetate 25 mg 25 mg LA BID PRN Hemorrhoids 09/09/21 10/06/21 History rectal suppository (Anusol-HC) pantoprazole 40 mg tablet,delayed 40 mg PO QAM 09/09/21 10/06/21 History release Allergies Allergy/AdvReac Type Severity Reaction Status Date / Time No Known Allergies Allergy Verified 10/06/21 09:54 Past Med/Surg History Medical History Anemia hx of Diverticular disease Gastritis Poor historian Arthritis Hearing deficit SENECA Hyperlipemia HTN (hypertension) Surgical History History of right cataract surgery History of esophagogastroduodenoscopy (EGD) History of colonoscopy Hx of left inguinal hernia repair History of right inguinal hernia repair History of tubal ligation History of tooth extraction H/O varicose vein stripping History of hemorrhoidectomy Family History Mother Family history of diabetes mellitus Social History Smoking Status: Never smoker Second Hand Exposure: No; Do You Dip or Chew Tobacco: No; Hx Alcohol Use: No Hx Substance Use: No Preferred Language: Vietnamese Communication Ability: Effective Hogshead Mat Inspector Required: No Beliefs That Will Affect Care: None Current Living Situation: Alone Feels Safe at Home: Yes Assistive Devices: Denture - Upper and Glasses Review of Systems A total of 10 systems reviewed and were otherwise negative Physical Exam Vital Signs Vital Signs - 24 hr 01/29/23 19:03 01/29/23 19:54 01/29/23 19:55 Temperature 37.0 C Temperature Source Temporal Artery Scan Pulse Rate 89 Pulse Rate [Apical] 93 H Respiratory Rate 16 18 Respiratory Effort / Characteristics Non-Labored Spontaneous Non-Labored Spontaneous Respiratory Depth Normal Normal Respiratory Pattern Regular Blood Pressure 182/95 H Blood Pressure [Right Arm] 185/92 H Blood Pressure Mean 124 Blood Pressure Mean [Right Arm] 123 Blood Pressure Position Sitting Blood Pressure Position [Right Arm] Lying Pulse Oximetry 98 97 97 Oxygen Delivery Method Room Air Room Air Room Air Sepsis Recent Fever Within 48 Hours No Sepsis New/Unexplained Change in Mental Status N/A Sepsis Action Taken by Nursing No Action Required 01/29/23 20:02 01/29/23 22:35 01/29/23 23:42 Temperature Temperature Source Pulse Rate 91 H 90 Pulse Rate [Apical] 91 H Respiratory Rate 18 Respiratory Effort / Characteristics Non-Labored Spontaneous Respiratory Depth Normal Respiratory Pattern Regular Blood Pressure Blood Pressure [Right Arm] 109/80 Blood Pressure Mean Blood Pressure Mean [Right Arm] 89 Blood Pressure Position Blood Pressure Position [Right Arm] Pulse Oximetry 95 Oxygen Delivery Method Room Air Sepsis Recent Fever Within 48 Hours Sepsis New/Unexplained Change in Mental Status Sepsis Action Taken by Nursing 01/30/23 00:00 Temperature Temperature Source Pulse Rate Pulse Rate [Apical] 92 H Respiratory Rate 17 Respiratory Effort / Characteristics Non-Labored Spontaneous Respiratory Depth Normal Respiratory Pattern Regular Blood Pressure Blood Pressure [Right Arm] 161/83 H Blood Pressure Mean Blood Pressure Mean [Right Arm] 109 Blood Pressure Position Blood Pressure Position [Right Arm] Pulse Oximetry 92 Oxygen Delivery Method Room Air Sepsis Recent Fever Within 48 Hours Sepsis New/Unexplained Change in Mental Status Sepsis Action Taken by Nursing General: Well developed well nourished older female is hard of hearing but appears in no acute distress, breathing comfortably on room air. Normal speech. She is mildly anxious at times HEENT: Normal cephalic atraumatic. Pupils are equal round and reactive to light. Extraocular movements are intact. Oropharynx is pink with moist mucous membranes. No swelling of the mouth lips or tongue. Neck: Supple with a midline trachea. No meningeal signs or stiffness, no JVD or bruits. No Stridor. Chest: Clear to auscultation bilaterally. No wheezes or rhonchi. No increased work of breathing. Heart: Regular rate and rhythm there is a 2 out of 6 systolic murmur more towards the right Abdomen: Soft nontender, nondistended without rebound guarding or rigidity. Extremities: No cyanosis clubbing or edema. No calf tenderness or assymetry. Her feet are pink and well-perfused appearing with bounding distal pulses. No redness or warmth or Calf asymmetry. No evidence of compartment syndrome or neurovascular compromise or arterial compromise. Spine/Back. Non tender to palpation. No CVA tenderness Skin: Good turgor without rashes. Neurologic exam: Cranial nerves two through 12 are intact. Motor and sensation are intact and symmetrical throughout. Course Administered Medications Potassium Chloride (K Juvenal / Wtr) 10 meq in 100 mls @ 100 mls/hr IV Q1H DIONY Stop: 01/30/23 03:14 Last Admin: 01/30/23 01:42 Dose: 100 mls/hr Documented By: LUIZA Discontinued Medications Piperacillin Sod/Tazobactam (Sod 4.5 gm/ Dextrose) 100 mls @ 200 mls/hr IV NOW ONE Stop: 01/30/23 01:10 Last Admin: 01/30/23 01:45 Dose: 200 mls/hr Documented By: LUIZA Ioversol (Optiray 320 500ml) 92 ml IV ONCE ONE Stop: 01/29/23 23:28 Last Admin: 01/29/23 23:31 Dose: 92 ml Documented By: JASON Medical Decision Making Differential Diagnosis Acute coronary syndrome, arrhythmia, DVT, musculoskeletal, arthritis, electrolyte or metabolic abnormality, infection Medical Records Attestation: I reviewed the patient's medical records. Home Medications Current Medication List: was personally reviewed by me Laboratory Data Attestation: I reviewed the patient's lab results. 01/29/23 20:16 01/29/23 20:16 Lab Results 01/29/23 Range/Units 20:16 WBC 6.68 (4.8-10.8) K/ul RBC 5.11 (4.20-5.40) M/uL Hgb 16.1 H (12.0-16.0) g/dl Hct 46.6 (37.0-47.0) % MCV 91.2 (80.0-100.0) fL MCH 31.5 (25.0-34.0) pg MCHC 34.5 (32.0-36.0) g/dL RDW Std Deviation 44.2 (36.4-46.3) fL RDW Coeff of Vanesa 13.0 (11.5-14.5) % Plt Count 245 (130-400) K/uL MPV 11.0 (9.4-12.4) fL Immature Gran % (Auto) 1.0 % Neut % (Auto) 70.4 % Lymph % (Auto) 9.3 % Nuckolls % (Auto) 19.0 % Eos % (Auto) 0.0 % Baso % (Auto) 0.3 % Neut # (Auto) 4.70 (1.40-6.50) K/uL Lymph # (Auto) 0.62 L (1.20-3.40) K/uL [place]olls # (Auto) 1.27 H (0.11-0.59) K/uL Eos # (Auto) 0.00 (0.00-0.50) K/uL Baso # (Auto) 0.02 (0.00-0.20) K/uL Immature Gran # (Auto) 0.07 (0.01-0.20) K/uL PT 11.0 (9.0-12.0) Seconds INR 1.0 (0.9-1.1) APTT 27.9 (21.0-31.0) Seconds PTT Ratio 1.0 Sodium 142 (136-145) mmol/L Potassium 3.2 L (3.5-5.1) mmol/L Chloride 104 (98-107) mmol/L Carbon Dioxide 29 (21-32) mmol/L Anion Gap 9 (3-11) BUN 20 (6-23) mg/dl Creatinine 0.88 (0.6-1.2) mg/dl Est Cr Clr Drug Dosing Not Reportable Est GFR ( Amer) 69.0 ml/min Est GFR (Non-Af Amer) 59.5 ml/min BUN/Creatinine Ratio 22.7 H (10-20) Glucose 99 (70-99(Fasting)) mg/dl Calcium 10.3 (8.6-10.3) mg/dl Magnesium 2.1 (1.7-2.4) mg/dl Total Bilirubin 0.8 (0.2-1.0) mg/dl AST 219 H (13-39) U/L ALT 216 H (7-52) U/L Alkaline Phosphatase 324 H (34-104) U/L Troponin I High Sens 12.0 (0-14) pg/ml Total Protein 8.5 H (6.0-8.3) gm/dl Albumin 4.3 (3.4-5.0) gm/dl Globulin 4.2 H (2.5-4.0) gm/dl Albumin/Globulin Ratio 1.0 (0.9-2) Lipase 94 H (11-82) U/L Lyme Disease IgG Ab Negative (Negative) Lyme Disease IgM Ab Negative (Negative) Imaging Data Attestation: I personally reviewed and interpreted this imaging study as follows: My Impression: Chest x-rayno acute infiltrate, failure, pneumothorax seen Bilateral knee x-rays- there is degenerative changes/arthritis and some vascular calcifications but no fracture or dislocation Radiologist's Impression: Venous Doppler Study 01/29/23 19:32 Exam(s): US VENOUS BILATERAL LOWER EXTREMITIES EXAM: US Duplex Bilateral Lower Extremities Veins CLINICAL HISTORY: Reason for exam: eval for DVT. TECHNIQUE: Real-time duplex ultrasound scan of the bilateral lower extremity veins integrating B-mode two-dimensional vascular structure, Doppler spectral analysis, color flow Doppler imaging and compression. COMPARISON: No relevant prior studies available. FINDINGS: Right deep veins: The right common femoral and popliteal vein are patent and fully compressible. There is an area in the upper aspect of the right superficial femoral vein which is not fully compressible consistent with thrombus. Right superficial veins: Unremarkable. No thrombus in the visualized right great saphenous vein. Left deep veins: The left common femoral and popliteal veins are fully compressible. There is also mild wall thickening in the upper aspect of the left superficial femoral vein. This may represent sequela of chronic DVT. Left superficial veins: Unremarkable. No thrombus in the visualized left great saphenous vein. Soft tissues: There is a right popliteal cyst measuring 15 x 6 x 26 mm. IMPRESSION: Nonocclusive DVT within the upper aspect of the right superficial femoral vein. Electronically signed by: Des Freitas MD 01/29/23 23:27 PM Abdomen/Pelvis CT 01/29/23 23:02 Exam(s): CT ABDOMEN + PELVIS With Contrast EXAM: CT Abdomen and Pelvis With Intravenous Contrast CLINICAL HISTORY: Reason for exam: elevated lfts. TECHNIQUE: Axial computed tomography images of the abdomen and pelvis with intravenous contrast. CTDI is 22.68 mGy and DLP is 1117.73 mGy-cm. Automated exposure control was utilized for the study. A dose lowering technique was utilized adhering to the principles of ALARA. COMPARISON: November 04, 2019 FINDINGS: Lung bases: Unremarkable. No mass. No consolidation. ABDOMEN: Liver: Unremarkable. No mass. Gallbladder and bile ducts: There are gallstones. No gallbladder wall thickening or surrounding edema or fluid. Central intrahepatic bile duct dilatation. The common bile duct is markedly dilated at up to 22 mm. There is at least one stone in the common bile duct measuring up to 10 x 19 mm. There is possibly another stone in the far distal common bile duct near the ampulla. Pancreas: Mild prominence of the pancreatic duct measuring up to 3 mm. Spleen: Unremarkable. No splenomegaly. Adrenals: Unremarkable. No mass. Kidneys and ureters: A 13 mm cyst in the right kidney has density measurement higher than simple fluid; however, it is stable in size to the prior study. No calculus. No hydronephrosis. Stomach and bowel: Diverticulosis without diverticulitis. No obstruction. PELVIS: Appendix: No findings to suggest acute appendicitis. Bladder: Unremarkable. No mass. Reproductive: Unremarkable as visualized. ABDOMEN and PELVIS: Intraperitoneal space: Unremarkable. No free air. No significant fluid collection. Bones/joints: No acute fracture. No dislocation. Soft tissues: Unremarkable. Vasculature: Unremarkable. No abdominal aortic aneurysm. Lymph nodes: Unremarkable. No enlarged lymph nodes. IMPRESSION: Severe dilatation of the common bile duct containing at least one and possibly 2 stones. Gallstones. No gallbladder wall thickening. Electronically signed by: Des Freitas MD 01/30/23 00:03 AM ECG Data Attestation: I personally reviewed and interpreted this ECG as follows: Indication: + chest pain Rate (beats per minute): 91 Rhythm: + normal sinus ECG Intervals/blocks: + Normal QRS, + Normal QT and + Normal LA ECG [place]: + Normal ECG ST segments: + Normal ST segments ECG Findings: no PACs or no PVCs Comparison ECG Date: from (11/04/2019) Change: no significant change MDM Narrative This patient comes in as scribed above. She has been having leg pain for quite some time its been several months she also had episode where she felt like her heart was fluttering briefly tonight she had no syncope. She seems somewhat anxious. Her legs actually look well on exam she has bounding distal pulses and no evidence suggest arterial compromise or compartment syndrome they are not red or warm there is no cellulitis. I did do bilateral lower extremity ultrasound. Given her chest symptoms also did a cardiac type work-up. She was placed on a sales closer. She does have a 2 out of 6 systolic murmur. Multiple blood testing was obtained as well as chest x-ray and EKG. EKG does not show any ischemic changes troponin is negative. Chest x-ray shows no acute infiltrate, failure, pneumothorax. She has no significant electrolyte or metabolic abnormalities however her liver functions are moderately elevated. In light of this , I did order CAT scan of the abdomen. She also had ultrasounds of her legs. There is a nonocclusive clot in the right superficial femoral vein. Her CAT scan of her abdomen is significantly abnormal with markedly dilated common bile duct with stones. I went back and examined her she has no tenderness in her abdomen. I do think she needs to be admitted for further treatment and evaluation of this I have not anticoagulated her as she will likely need a procedure for the stones. I have consulted Dr. Powell and discussed case at length with him. He saw the patient ER and will admit/observe her for these measures. She was also seen in consultation with surgery and Gaston Saleem saw her in the ER and I discussed the case with him as well. I did give her Zosyn 4.5 g IV for antibiotic coverage of her biliary tract. Continuous sales closer: Orders placed in EMR for continuous sales closer call upon my evaluation patient noted to be in normal sinus rhythm with a rate of 85 Impression & Plan Chest pain, Palpitations, Bilateral leg pain, Choledocholithiasis, Acute deep vein thrombosis (DVT) of distal vein of right lower extremity Discharge Plan Visit Data Chief Complaint: Leg Injury/Pain Stated Complaint: LEG PAIN,HEART FLUTTER ED Provider: Solis Leong Discharge Problem: Chest pain, Palpitations, Bilateral leg pain, Choledocholithiasis, Acute deep vein thrombosis (DVT) of distal vein of right lower extremity Forms Stand Alone Forms: My [facility] Prescriptions Prescriptions: No Action hydrocortisone [Anusol-HC] 2.5 % cream with perineal applicator 1 applic LA BID Qty: 30 1RF lisinopril-hydrochlorothiazide 10-12.5 mg Tablet 1 tab PO QAM lovastatin 10 mg tablet 10 mg PO QAM hydrocortisone acetate [Anusol-HC] 25 mg suppository 25 mg LA BID PRN (Reason: Hemorrhoids) pantoprazole 40 mg tablet,delayed release (DR/EC) 40 mg PO QAM Referrals Referrals: Puja Miranda CRNP [Outside Practitioners] - Discharge Problem: Chest pain Qualifiers: Chest pain type: unspecified Qualified Code(s): R07.9 - Chest pain, unspecified
[2023-01-29 20:38] LABS: Basophils # (auto) 0.02 K/uL (0.00-0.20); Basophils % (auto) 0.3 %; Hematocrit (blood only) 46.6 % (37.0-47.0); Hemoglobin 16.1 g/dl (12.0-16.0); Immature Granulocytes # (auto) 0.07 K/uL (0.01-0.20); Lymphocytes # (auto) 0.62 K/uL (1.20-3.40); Lymphocytes % (auto) 9.3 %; Mean Corpuscular Hemoglobin 31.5 pg (25.0-34.0); Mean Corpuscular Hgb Conc 34.5 g/dL (32.0-36.0); Mean Corpuscular Volume 91.2 fL (80.0-100.0); Monocytes # (auto) 1.27 K/uL (0.11-0.59); Neutrophils % (auto) 70.4 %; Platelet Count 245 K/uL (130-400); RDW Standard Deviation 44.2 fL (36.4-46.3); Red Blood Count 5.11 M/uL (4.20-5.40); White Blood Count 6.68 K/ul (4.8-10.8)
[2023-01-29 20:54] LABS: Alanine Aminotransferase 216 U/L (7-52); Albumin Level 4.3 gm/dl (3.4-5.0); Alkaline Phosphatase 324 U/L (34-104); Anion Gap 9 (3-11); Aspartate Aminotransferase 219 U/L (13-39); BUN Creatinine Ratio 22.7 (10-20); Bilirubin,Total 0.8 mg/dl (0.2-1.0); Blood Urea Nitrogen 20 mg/dl (6-23); Calcium 10.3 mg/dl (8.6-10.3); Carbon Dioxide 29 mmol/L (21-32); Chloride 104 mmol/L (98-107); Est GFR (Non-African American) 59.5 ml/min; Globulin 4.2 gm/dl (2.5-4.0); Glucose 99 mg/dl (70-99(Fasting)); Lipase 94 U/L (11-82); Potassium 3.2 mmol/L (3.5-5.1); Sodium 142 mmol/L (136-145); Total Protein 8.5 gm/dl (6.0-8.3)
[2023-01-29 21:08] LABS: Partial Thromboplastin Time 27.9 Seconds (21.0-31.0)
[2023-01-29 21:28] LABS: Lyme Ab IgG w/WB Rflx Negative (Negative); Lyme Ab IgM w/WB Rflx Negative (Negative)
[2023-01-29] MEDS ORDERED: OPTIRAY 320 500ml IV ONE (23:27)
--- NOTE | 2023-01-29 23:28 | Ultrasound Report ---
Exam(s): US VENOUS BILATERAL LOWER EXTREMITIES EXAM: US Duplex Bilateral Lower Extremities Veins CLINICAL HISTORY: Reason for exam: eval for DVT. TECHNIQUE: Real-time duplex ultrasound scan of the bilateral lower extremity veins integrating B-mode two-dimensional vascular structure, Doppler spectral analysis, color flow Doppler imaging and compression. COMPARISON: No relevant prior studies available. FINDINGS: Right deep veins: The right common femoral and popliteal vein are patent and fully compressible. There is an area in the upper aspect of the right superficial femoral vein which is not fully compressible consistent with thrombus. Right superficial veins: Unremarkable. No thrombus in the visualized right great saphenous vein. Left deep veins: The left common femoral and popliteal veins are fully compressible. There is also mild wall thickening in the upper aspect of the left superficial femoral vein. This may represent sequela of chronic DVT. Left superficial veins: Unremarkable. No thrombus in the visualized left great saphenous vein. Soft tissues: There is a right popliteal cyst measuring 15 x 6 x 26 mm. IMPRESSION: Nonocclusive DVT within the upper aspect of the right superficial femoral vein. Electronically signed by: Des Freitas MD 01/29/23 23:27 PM
--- NOTE | 2023-01-30 00:04 | CT Scan Report ---
Exam(s): CT ABDOMEN + PELVIS With Contrast EXAM: CT Abdomen and Pelvis With Intravenous Contrast CLINICAL HISTORY: Reason for exam: elevated lfts. TECHNIQUE: Axial computed tomography images of the abdomen and pelvis with intravenous contrast. CTDI is 22.68 mGy and DLP is 1117.73 mGy-cm. Automated exposure control was utilized for the study. A dose lowering technique was utilized adhering to the principles of ALARA. COMPARISON: November 04, 2019 FINDINGS: Lung bases: Unremarkable. No mass. No consolidation. ABDOMEN: Liver: Unremarkable. No mass. Gallbladder and bile ducts: There are gallstones. No gallbladder wall thickening or surrounding edema or fluid. Central intrahepatic bile duct dilatation. The common bile duct is markedly dilated at up to 22 mm. There is at least one stone in the common bile duct measuring up to 10 x 19 mm. There is possibly another stone in the far distal common bile duct near the ampulla. Pancreas: Mild prominence of the pancreatic duct measuring up to 3 mm. Spleen: Unremarkable. No splenomegaly. Adrenals: Unremarkable. No mass. Kidneys and ureters: A 13 mm cyst in the right kidney has density measurement higher than simple fluid; however, it is stable in size to the prior study. No calculus. No hydronephrosis. Stomach and bowel: Diverticulosis without diverticulitis. No obstruction. PELVIS: Appendix: No findings to suggest acute appendicitis. Bladder: Unremarkable. No mass. Reproductive: Unremarkable as visualized. ABDOMEN and PELVIS: Intraperitoneal space: Unremarkable. No free air. No significant fluid collection. Bones/joints: No acute fracture. No dislocation. Soft tissues: Unremarkable. Vasculature: Unremarkable. No abdominal aortic aneurysm. Lymph nodes: Unremarkable. No enlarged lymph nodes. IMPRESSION: Severe dilatation of the common bile duct containing at least one and possibly 2 stones. Gallstones. No gallbladder wall thickening. Electronically signed by: Des Freitas MD 01/30/23 00:03 AM
[2023-01-30] MEDS ORDERED: PIPERACILLIN/TAZOBACTAM 4.5 GM in DEXTROSE 5% MINI-B 100 ML IV ONE (00:41)
[2023-01-30] MEDS ORDERED: POTASSIUM ACETATE/NSS 10 MEQ/105 ML BAG IV STA (01:06)
--- NOTE | 2023-01-30 01:11 | Surgery Consultation ---
Date of Consultation January 30, 2023 Assessment & Plan (1) Choledocholithiasis: Patient is being admitted on the hospitalist service. From surgical perspective we recommend proceeding as follows: Patient develops abdominal pain analgesics to be provided Antiemetics to be provided Recommend keeping the patient n.p.o. for the present time IV fluids to be provided for hydration Patient has no evidence of cholecystitis but has noted choledocholithiasis on CT scan abdomen. I discussed with the admitting service and they are planning obtaining gastroenterology consultation. Will await gastroenterology input as patient will likely need an ERCP. Consideration may be given to performing cholecystectomy in the future but this will be dependent on gastroenterology input Patient is noted to have a DVT. The patient is anticoagulated any procedures performed will need to be coordinated around the patient's anticoagulation. Additional recommendations be forthcoming based on her clinical course as unfolds Supervising Physician Co-Signing Physician Notes Patient not available during rounds, case reviewed with Gaston OSWALD overnight, labs and imaging reviewed, agree with above. 87-year-old female presented with leg injury/fall, and during her evaluation she was noted to have choledocholithiasis. No evidence of cholecystitis or cholangitis at this time. MRCP was positive for choledocholithiasis. GI has been consulted, she will likely need ERCP either as an inpatient or outpatient. We will plan for cholecystectomy at some point in the future. History of Present Illness Reason for Consultation: Choledocholithiasis History of Present Illness This is an 87-year-old female who presented to the emergency department secondary to lower extremity numbness and weakness. She has at this has been going on for several months. She has some family members visiting with her earlier today at which time she also told them that she was having palpitations so they recommended she come to the emergency department for further evaluation. The patient denies any chest pain or shortness of breath. She denies any fevers, shakes, or chills. She specifically denies any abdominal pain. She does admit to some intermittent nausea over the past 24 hours. Patient also does admit to some postprandial pain over the past several months particularly if she eats spicy foods. The patient does report a history of gastric ulcers. Her records were reviewed and she did have an EGD in November 2019 where patient was noted to have some nonbleeding gastric ulcers. Biopsies were taken at the time of this procedure were negative for malignancy and also negative for H. pylori. Pathology did come back with findings consistent with chronic gastritis. The patient also underwent a colonoscopy in November 2019. She did have polypectomy performed at this time and pathology was negative for malignancy. The patient denies any recent unexplained weight loss. She notes that she has had bilateral inguinal hernias in the past as well as a tubal ligation and hemorrhoidectomy. Since arrival to the hospital patient has had labs and imaging which I independent reviewed. The patient had a CT scan of the abdomen pelvis which showed the patient had severe dilatation of the common bile duct which contained at least 1 and potentially 2 gallstones. The gallbladder wall did not appear to be thickened and did not have any surrounding fluid or edema. A lower extremity venous ultrasound did labs include a CBC her white blood cell count and hematocrit were normal. Her hemoglobin is slightly high at 16.1. Platelet count was normal. Coagulation studies were normal. Chemistry profile shows sodium was normal. Her potassium was 3.2. BUN and creatinine were both normal. Patient's total bilirubin was normal but she did have elevation of her LFTs with an AST and ALT of 219 and 216 respectively. Alkaline phosphatase was 324. Lipase had a slight elevation at 94. At the time of my interview the patient was resting comfortably in bed and she was in no distress. Allergies Allergy/AdvReac Type Severity Reaction Status Date / Time No Known Allergies Allergy Verified 01/30/23 03:08 Home Medications Medication Instructions Recorded Confirmed Type lisinopril 10 1 tab PO QAM 07/26/18 01/30/23 History mg-hydrochlorothiazide 12.5 mg tablet lovastatin 10 mg tablet 10 mg PO QAM 11/04/19 01/30/23 History Otc Arthritis Pill 1 tab PO DIRECTED PRN Pain 01/30/23 01/30/23 History ibuprofen 200 mg tablet 400 mg PO Q6H PRN Pain 01/30/23 01/30/23 History omeprazole 20 mg capsule,delayed 20 mg PO DAILY 01/30/23 01/30/23 History release Patient History Medical History (Updated 01/30/23 @ 06:30 by Santos Toney MD) Hypokalemia Anemia hx of Diverticular disease Gastritis Poor historian Arthritis Hearing deficit KLUTI KAAH Hyperlipemia HTN (hypertension) Surgical History History of right cataract surgery History of esophagogastroduodenoscopy (EGD) History of colonoscopy Hx of left inguinal hernia repair History of right inguinal hernia repair History of tubal ligation History of tooth extraction H/O varicose vein stripping History of hemorrhoidectomy Family History Mother Family history of diabetes mellitus Social History Smoking Status: Never smoker Second Hand Exposure: No; Do You Dip or Chew Tobacco: No; Hx Alcohol Use: No Hx Substance Use: No Preferred Language: Luxembourgish Communication Ability: Effective Cte Teacher Required: No Beliefs That Will Affect Care: None Current Living Situation: Alone Feels Safe at Home: Yes Assistive Devices: Denture - Upper and Glasses Review of Systems Constitutional: + fatigue; no fever and no chills Ear, Nose, Mouth, Throat: + hearing loss Respiratory: no cough and no dyspnea Cardiovascular: no chest pain Gastrointestinal: + nausea; no abdominal pain and no vomit ing Genitourinary: no dysuria Musculoskeletal: no back pain Integumentary: no rash Neurologic: no localized weakness Physical Exam Constitutional: WD/WN, vitals as above Eyes: + anicteric sclerae ENMT: Ears: no hearing impairment and no external ear abnormality Mouth: no oropharynx abnormality Neck: trachea midline Respiratory: normal respiratory effort; no respiratory distress and no labored breathing Cardiovascular: Rate/Rhythm: regular rate Gastrointestinal (Abdomen): Abdomen is soft and nondistended. There is no pain with palpation. There is no rebound tenderness or guarding. Musculoskeletal: No calf tenderness Skin: no rashes Neurologic: moves all extremities Psychiatric: A+Ox3, euthymic affect Results & Data Vital Signs (Past 12 Hours) Vital Signs Temp Pulse Pulse Resp BP BP Pulse Ox 01/30/23 00:00 92 H 17 161/83 H 92 01/29/23 23:42 90 01/29/23 22:35 91 H 18 109/80 95 01/29/23 20:02 91 H 01/29/23 19:55 93 H 18 185/92 H 97 01/29/23 19:54 97 01/29/23 19:03 37.0 C 89 16 182/95 H 98 O2 Del Method 01/30/23 00:00 Room Air 11/26/23 23:42 01/29/23 22:35 Room Air 01/29/23 20:02 01/29/23 19:55 Room Air 01/29/23 19:54 Room Air 01/29/23 19:03 Room Air PG Care Time/CCT Total # of Minutes Spent Total Time Spent with Patient: Total time spent is greater than 50% in coordination of care (as documented) at patient's floor/unit and/or counseling patient: Coding Level of Care Code 53622 INT INP/OBS CARE 375MIN Diagnoses Choledocholithiasis K80.50
[2023-01-30 01:25] LABS: Magnesium 2.1 mg/dl (1.7-2.4)
[2023-01-30] MEDS: POTASSIUM CHLORIDE / WTR 10 MEQ/100 ML PLCT IV SCH ×2 (01:42→03:18)
--- NOTE | 2023-01-30 02:06 | History & Physical Report ---
Date of Service January 30, 2023 Assessment & Plan (1) Acute deep vein thrombosis (DVT) of distal vein of right lower extremity: (2) Choledocholithiasis: (3) Palpitations: (4) Abnormal LFTs: (5) Common bile duct dilatation: (6) Arthritis: Plan Right superficial vein nonocclusive DVT- Patient has also complained of palpitations, but was not able to order CTA of chest until 11 AM, due to previous dye used for CT of abdomen and pelvis Start patient on heparin IV low-dose without bolus per protocol Abnormal LFTs/choledocholithiasis- CT head suggested severe dilatation of the, bile duct containing least 1 and possibly 2 stones. Gallstones with no gallbladder wall thickening MRCP showed markedly dilated, bile duct. I stone is seen in the upper aspect of the common hepatic duct without obstructing stone is not seen in the distal common bile duct. There is a suggestion IV's distal stricture of the common bile duct. Multiple large gallstones. Mildly prominent pancreatic duct Zosyn 4.5 g IV every 8 hours Consult general surgery Dr. Shetty Consult gastroenterology, however, no physicians are listed for on-call, so this will need to be called in early in the morning Heart fluttering- Concerned about the possibility of a PE, so CTA PE protocol can be performed an ytime after 11:00 AM May be associated with potassium 3.2, which is being replaced with 2K riders and recheck laboratories in a.m. Bilateral knee osteoarthritis/left shoulder osteoarthritis- Patient has had injections in the left shoulder, should consider injections of knees in the outpatient setting History of Present Illness Chief Complaint: The patient presented to the emergency department at the insistence of her neighbor, due to complaint regarding worsening of her chronic bilateral knee pain. During her visit emergency department, she had lower extremity venous Dopplers performed which showed a right superficial femoral vein nonocclusive DVT. She did have screening laboratories performed also, which revealed abnormal LFTs, which led to a CT scan of abdomen and pelvis being performed, which showed a markedly dilated, bile duct and at least 1-2, bile duct stones. The patient's main symptoms were bilateral knee pain, and x-rays were were performed which showed osteoarthritis with no acute fractures Primary Care Provider: Pamela Nye PA-C The patient is a 87-year-old female with a past medical history including hemorrhoids, gastritis, anemia, diverticulitis of jejunum. The patient is somewhat difficult to read and her presentation in the ED, and therefore a more extensive evaluation was performed in the ED as noted above. The patient's main complaint continues to be that of bilateral knee pain. She also reports having had a left shoulder injection by orthopedic surgery Dr. Leung Allergies Allergy/AdvReac Type Severity Reaction Status Date / Time No Known Allergies Allergy Verified 01/30/23 03:08 Home Medications Medication Instructions Recorded Confirmed Type lisinopril 10 1 tab PO QAM 07/26/18 01/30/23 History mg-hydrochlorothiazide 12.5 mg tablet lovastatin 10 mg tablet 10 mg PO QAM 11/04/19 01/30/23 History Otc Arthritis Pill 1 tab PO DIRECTED PRN Pain 01/30/23 01/30/23 History ibuprofen 200 mg tablet 400 mg PO Q6H PRN Pain 01/30/23 01/30/23 History omeprazole 20 mg capsule,delayed 20 mg PO DAILY 01/30/23 01/30/23 History release Past Med/Surg History Medical History (Updated 01/30/23 @ 06:30 by Santos Toney MD) Hypokalemia Anemia hx of Diverticular disease Gastritis Poor historian Arthritis Hearing deficit [place] Hyperlipemia HTN (hypertension) Surgical History History of right cataract surgery History of esophagogastroduodenoscopy (EGD) History of colonoscopy Hx of left inguinal hernia repair History of right inguinal hernia repair History of tubal ligation History of tooth extraction H/O varicose vein stripping History of hemorrhoidectomy Family History Mother Family history of diabetes mellitus Social History Smoking Status: Never smoker Second Hand Exposure: No; Do You Dip or Chew Tobacco: No; Hx Alcohol Use: No Hx Substance Use: No Preferred Language: Latvian Communication Ability: Effective Flexo Folder Gluer Operator Required: No Beliefs That Will Affect Care: None Current Living Situation: Alone Feels Safe at Home: Yes Assistive Devices: Denture - Upper and Glasses Review of Systems Review of Systems: Review of systems is difficult to perform, as patient's main and only complaint was that of ongoing bilateral knee pain, and heart fluttering over the past few days. Physical Exam Physical Exam: The patient is awake, alert and oriented, pleasant but intermittently mildly confused, well developed and well nourished, normocephalic and atraumatic, lying in bed and in no acute distress. HEENT--PERRL, EOMI, mucous membranes and oropharynx dry. Neck--supple. No JVD. No bruits. Thyroid normal, trachea midline, no adenopathy. Heart--normal S1 and S2. No murmurs, rubs or gallops. Lungs--clear bilaterally, no respiratory distress, no accessory muscle use. Abdomen--normal bowel sounds and soft. Nontender. Nondistended, no hernias or masses, no organomegaly. Extremities--no cyanosis or clubbing. No edema. Dermatologic--normal skin turgor, normal color, no abnormal lymph nodes, no rash. Neurologic--cranial nerves II through XII grossly intact. Rheumatologic--limited exam Psychiatric--pleasant, but difficult to read and intermittently confused related to symptoms Results & Data Results & Data Vital Signs (Past 12 Hours) Vital Signs Temp Pulse Pulse Resp BP BP Pulse Ox 01/30/23 00:00 92 H 17 161/83 H 92 01/29/23 23:42 90 01/29/23 22:35 91 H 18 109/80 95 01/29/23 20:02 91 H 01/29/23 19:55 93 H 18 185/92 H 97 01/29/23 19:54 97 01/29/23 19:03 37.0 C 89 16 182/95 H 98 O2 Del Method 01/30/23 00:00 Room Air 01/29/23 23:42 01/29/23 22:35 Room Air 01/29/23 20:02 01/29/23 19:55 Room Air 01/29/23 19:54 Room Air 01/29/23 19:03 Room Air Laboratory Results Laboratory Results WBC 6.68 K/ul (4.8-10.8) 01/29/23 20:16 RBC 5.11 M/uL (4.20-5.40) 01/29/23 20:16 Hgb 16.1 g/dl (12.0-16.0) H 01/29/23 20:16 Hct 46.6 % (37.0-47.0) 01/29/23 20:16 MCV 91.2 fL (80.0-100.0) 01/29/23 20:16 MCH 31.5 pg (25.0-34.0) 01/29/23 20:16 MCHC 34.5 g/dL (32.0-36.0) 01/29/23 20:16 RDW Std Deviation 44.2 fL (36.4-46.3) 01/29/23 20:16 RDW Coeff of Vanesa 13.0 % (11.5-14.5) 01/29/23 20:16 Plt Count 245 K/uL (130-400) 01/29/23 20:16 MPV 11.0 fL (9.4-12.4) 01/29/23 20:16 Immature Gran % (Auto) 1.0 % 01/29/23 20:16 Neut % (Auto) 70.4 % 01/29/23 20:16 Lymph % (Auto) 9.3 % 01/29/23 20:16 [place] % (Auto) 19.0 % 01/29/23 20:16 Eos % (Auto) 0.0 % 01/29/23 20:16 Baso % (Auto) 0.3 % 01/29/23 20:16 Neut # (Auto) 4.70 K/uL (1.40-6.50) 01/29/23 20:16 Lymph # (Auto) 0.62 K/uL (1.20-3.40) L 01/29/23 20:16 [place] # (Auto) 1.27 K/uL (0.11-0.59) H 01/29/23 20:16 Eos # (Auto) 0.00 K/uL (0.00-0.50) 01/29/23 20:16 Baso # (Auto) 0.02 K/uL (0.00-0.20) 01/29/23 20:16 Immature Gran # (Auto) 0.07 K/uL (0.01-0.20) 01/29/23 20:16 PT 11.0 Seconds (9.0-12.0) 01/29/23 20:16 INR 1.0 (0.9-1.1) 01/29/23 20:16 APTT 27.9 Seconds (21.0-31.0) 01/29/23 20:16 PTT Ratio 1.0 01/29/23 20:16 Sodium 142 mmol/L (136-145) 01/29/23 20:16 Potassium 3.2 mmol/L (3.5-5.1) L 01/29/23 20:16 Chloride 104 mmol/L (98-107) 01/29/23 20:16 Carbon Dioxide 29 mmol/L (21-32) 01/29/23 20:16 Anion Gap 9 (3-11) 01/29/23 20:16 BUN 20 mg/dl (6-23) 01/29/23 20:16 Creatinine 0.88 mg/dl (0.6-1.2) 01/29/23 20:16 Est Cr Clr Drug Dosing Not Reportable 01/29/23 20:16 Est GFR ( Amer) 69.0 ml/min 01/29/23 20:16 Est GFR (Non-Af Amer) 59.5 ml/min 01/29/23 20:16 BUN/Creatinine Ratio 22.7 (10-20) H 01/29/23 20:16 Glucose 99 mg/dl (70-99(Fasting)) 01/29/23 20:16 Calcium 10.3 mg/dl (8.6-10.3) 01/29/23 20:16 Magnesium 2.1 mg/dl (1.7-2.4) 01/29/23 20:16 Total Bilirubin 0.8 mg/dl (0.2-1.0) 01/29/23 20:16 AST 219 U/L (13-39) H 01/29/23 20:16 ALT 216 U/L (7-52) H 01/29/23 20:16 Alkaline Phosphatase 324 U/L (34-104) H 01/29/23 20:16 Troponin I High Sens 12.0 pg/ml (0-14) 01/29/23 20:16 Total Protein 8.5 gm/dl (6.0-8.3) H 01/29/23 20:16 Albumin 4.3 gm/dl (3.4-5.0) 01/29/23 20:16 Globulin 4.2 gm/dl (2.5-4.0) H 01/29/23 20:16 Albumin/Globulin Ratio 1.0 (0.9-2) 01/29/23 20:16 Lipase 94 U/L (11-82) H 01/29/23 20:16 Lyme Disease IgG Ab Negative (Negative) 01/29/23 20:16 Lyme Disease IgM Ab Negative (Negative) 01/29/23 20:16 Impressions Venous Doppler Study 01/29/23 19:32 Exam(s): US VENOUS BILATERAL LOWER EXTREMITIES EXAM: US Duplex Bilateral Lower Extremities Veins CLINICAL HISTORY: Reason for exam: eval for DVT. TECHNIQUE: Real-time duplex ultrasound scan of the bilateral lower extremity veins integrating B-mode two-dimensional vascular structure, Doppler spectral analysis, color flow Doppler imaging and compression. COMPARISON: No relevant prior studies available. FINDINGS: Right deep veins: The right common femoral and popliteal vein are patent and fully compressible. There is an area in the upper aspect of the right superficial femoral vein which is not fully compressible consistent with thrombus. Right superficial veins: Unremarkable. No thrombus in the visualized right great saphenous vein. Left deep veins: The left common femoral and popliteal veins are fully compressible. There is also mild wall thickening in the upper aspect of the left superficial femoral vein. This may represent sequela of chronic DVT. Left superficial veins: Unremarkable. No thrombus in the visualized left great saphenous vein. Soft tissues: There is a right popliteal cyst measuring 15 x 6 x 26 mm. IMPRESSION: Nonocclusive DVT within the upper aspect of the right superficial femoral vein. Electronically signed by: Des Freitas MD 01/29/23 23:27 PM Abdomen/Pelvis CT 01/29/23 23:02 Exam(s): CT ABDOMEN + PELVIS With Contrast EXAM: CT Abdomen and Pelvis With Intravenous Contrast CLINICAL HISTORY: Reason for exam: elevated lfts. TECHNIQUE: Axial computed tomography images of the abdomen and pelvis with intravenous contrast. CTDI is 22.68 mGy and DLP is 1117.73 mGy-cm. Automated exposure control was utilized for the study. A dose lowering technique was utilized adhering to the principles of ALARA. COMPARISON: November 04, 2019 FINDINGS: Lung bases: Unremarkable. No mass. No consolidation. ABDOMEN: Liver: Unremarkable. No mass. Gallbladder and bile ducts: There are gallstones. No gallbladder wall thickening or surrounding edema or fluid. Central intrahepatic bile duct dilatation. The common bile duct is markedly dilated at up to 22 mm. There is at least one stone in the common bile duct measuring up to 10 x 19 mm. There is possibly another stone in the far distal common bile duct near the ampulla. Pancreas: Mild prominence of the pancreatic duct measuring up to 3 mm. Spleen: Unremarkable. No splenomegaly. Adrenals: Unremarkable. No mass. Kidneys and ureters: A 13 mm cyst in the right kidney has density measurement higher than simple fluid; however, it is stable in size to the prior study. No calculus. No hydronephrosis. Stomach and bowel: Diverticulosis without diverticulitis. No obstruction. PELVIS: Appendix: No findings to suggest acute appendicitis. Bladder: Unremarkable. No mass. Reproductive: Unremarkable as visualized. ABDOMEN and PELVIS: Intraperitoneal space: Unremarkable. No free air. No significant fluid collection. Bones/joints: No acute fracture. No dislocation. Soft tissues: Unremarkable. Vasculature: Unremarkable. No abdominal aortic aneurysm. Lymph nodes: Unremarkable. No enlarged lymph nodes. IMPRESSION: Severe dilatation of the common bile duct containing at least one and possibly 2 stones. Gallstones. No gallbladder wall thickening. Electronically signed by: Des Freitas MD 01/30/23 00:03 AM Cholangiopancreatography MRI 01/30/23 02:05 Exam(s): MRI MRCP EXAM: MR Abdomen Without Intravenous Contrast, MRCP Protocol CLINICAL HISTORY: Reason for exam: CBD stones, abnl lft's. TECHNIQUE: Multiplanar magnetic resonance images of the abdomen without intravenous contrast using MRCP protocol. COMPARISON: No relevant prior studies available. FINDINGS: Bile ducts: Mild central intra-hepatic bile duct dilatation. The common bile duct is markedly dilated at 21 mm. A large stone is seen in the upper aspect of the common hepatic duct. There is no evidence of stone in the distal common bile duct near the ampulla. The dilated duct appears to terminate before the ampulla, suggesting the distal stricture. Gallbladder: There are 3 large stones in the gallbladder. No gallbladder wall thickening. Liver: Unremarkable. Pancreas: Mildly prominent pancreatic duct at almost 3 mm.. Spleen: Unremarkable. No splenomegaly. Adrenals: Unremarkable. No mass. Kidneys and ureters: Unremarkable. No hydronephrosis. IMPRESSION: Markedly dilated common bile duct. A stone is seen in the upper aspect of the common hepatic duct though an obstructing stone is not seen in the distal common bile duct. There is a suggestion of a distal stricture of the common bile duct. Multiple large gallstones. Mildly prominent pancreatic duct. Electronically signed by: Des Freitas MD 01/30/23 06:20 AM Code Status & VTE Plan Code Status full code VTE Prophylaxis Plan VTE Prophylaxis will be ordered: Yes PG Care Time/CCT Total # of Minutes Spent Total Time Spent with Patient: Total time spent is greater than 50% in coordination of care (as documented) at patient's floor/unit and/or counseling patient: Coding Level of Care Code 77296 INT INP/OBS CARE 3/75MIN Diagnoses Acute deep vein thrombosis (DVT) of distal vein of right lower extremity I82.4Z1 Choledocholithiasis K80.50 Palpitations R00.2 Abnormal LFTs R79.89 Common bile duct dilatation K83.8 Arthritis M19.90
[2023-01-30] MEDS ORDERED: Heparin IV Adult Wt-Based Low-Dose *NO* INITIAL Bolus Protocol IV SCH (02:08)
[2023-01-30] MEDS ORDERED: HEPARIN SODIUM/DEXTROSE 25,000 UNITS/500 ML BAG IV SCH (02:15)
[2023-01-30] MEDS ORDERED: ONDANSETRON INJ 2 MG/ML 2 ML VIAL IV PRN ×2 (04:37→12:50)
--- NOTE | 2023-01-30 06:21 | Magnetic Resonance Report ---
Exam(s): MRI MRCP EXAM: MR Abdomen Without Intravenous Contrast, MRCP Protocol CLINICAL HISTORY: Reason for exam: CBD stones, abnl lft's. TECHNIQUE: Multiplanar magnetic resonance images of the abdomen without intravenous contrast using MRCP protocol. COMPARISON: No relevant prior studies available. FINDINGS: Bile ducts: Mild central intra-hepatic bile duct dilatation. The common bile duct is markedly dilated at 21 mm. A large stone is seen in the upper aspect of the common hepatic duct. There is no evidence of stone in the distal common bile duct near the ampulla. The dilated duct appears to terminate before the ampulla, suggesting the distal stricture. Gallbladder: There are 3 large stones in the gallbladder. No gallbladder wall thickening. Liver: Unremarkable. Pancreas: Mildly prominent pancreatic duct at almost 3 mm.. Spleen: Unremarkable. No splenomegaly. Adrenals: Unremarkable. No mass. Kidneys and ureters: Unremarkable. No hydronephrosis. IMPRESSION: Markedly dilated common bile duct. A stone is seen in the upper aspect of the common hepatic duct though an obstructing stone is not seen in the distal common bile duct. There is a suggestion of a distal stricture of the common bile duct. Multiple large gallstones. Mildly prominent pancreatic duct. Electronically signed by: Des Freitas MD 01/30/23 06:20 AM
[2023-01-30] MEDS: PIPERACILLIN/TAZOBACTAM 4.5 GM in DEXTROSE 5% MINI-B 100 ML IV SCH ×3 (07:18→23:22)
--- NOTE | 2023-01-30 07:27 | XRay Report ---
XR knee LT 1 or 2V routine, XR knee RT 1 or 2V routine HISTORY: 87 years-old Female knee pain acute bilateral knee pain COMPARISON: None TECHNIQUE: 2 views of the bilateral knees FINDINGS: LEFT: Demineralized appearance of the bones. Mild medial with [id number] patellofemoral and severe la teral compartment osteoarthritis. Trace joint effusion. Arterial calcifications. No acute fracture or dislocation. RIGHT: Demineralized appearance of the bones. Mild medial with [id number] patellofemoral and severe la teral compartment osteoarthritis. Small to moderate joint effusion. Arterial calcifications. No acute fracture or dislocation. IMPRESSION: 1. No acute fracture or dislocation. 2. Tricompartmental osteoarthritis of the knees, severe within the lateral compartments. ACT 112: Negative or not required by law. The above report was generated using voice recognition software. It may contain grammatical, syntax o r spelling errors. Electronically signed by: Edgar Pimentel M.D. 01/30/2023 7:25 AM
--- NOTE | 2023-01-30 07:27 | XRay Report ---
XR knee LT 1 or 2V routine, XR knee RT 1 or 2V routine HISTORY: 87 years-old Female knee pain acute bilateral knee pain COMPARISON: None TECHNIQUE: 2 views of the bilateral knees FINDINGS: LEFT: Demineralized appearance of the bones. Mild medial with [id number] patellofemoral and severe la teral compartment osteoarthritis. Trace joint effusion. Arterial calcifications. No acute fracture or dislocation. RIGHT: Demineralized appearance of the bones. Mild medial with [id number] patellofemoral and severe la teral compartment osteoarthritis. Small to moderate joint effusion. Arterial calcifications. No acute fracture or dislocation. IMPRESSION: 1. No acute fracture or dislocation. 2. Tricompartmental osteoarthritis of the knees, severe within the lateral compartments. ACT 112: Negative or not required by law. The above report was generated using voice recognition software. It may contain grammatical, syntax o r spelling errors. Electronically signed by: Edgar Pimentel M.D. 01/30/2023 7:25 AM
--- NOTE | 2023-01-30 08:10 | XRay Report ---
SINGLE VIEW CHEST CLINICAL HISTORY: Atypical chest pain. FINDINGS: An AP, portable, upright chest radiograph is compared to study dated 08/01/2018. The examina tion is degraded by portable technique and apical lordotic positioning. The cardiomediastinal silhoue tte is unremarkable. Chronic interstitial thickening similar to previous. There is mild bibasilar ate lectasis. The lungs and pleural spaces are otherwise clear. No pneumothorax is seen. The skeletal str uctures are osteopenic. The bony thorax is grossly intact. Arthritic change is seen in the shoulders IMPRESSION: No active disease in the chest. ACT 112: Negative or not required by law. Electronically signed by: Shan Cali M.D. 01/30/2023 8:08 AM
[2023-01-30 08:48] LABS: Basophils # (auto) 0.01 K/uL (0.00-0.20); Basophils % (auto) 0.2 %; Eosinophils # (auto) 0.01 K/uL (0.00-0.50); Eosinophils % (auto) 0.2 %; Hematocrit (blood only) 34.9 % (37.0-47.0); Hemoglobin 12.1 g/dl (12.0-16.0); Immature Granulocytes # (auto) 0.04 K/uL (0.01-0.20); Immature Granulocytes % (auto) 0.8 %; Lymphocytes # (auto) 0.97 K/uL (1.20-3.40); Lymphocytes % (auto) 19.4 %; Mean Corpuscular Hemoglobin 31.8 pg (25.0-34.0); Mean Corpuscular Hgb Conc 34.7 g/dL (32.0-36.0); Mean Corpuscular Volume 91.6 fL (80.0-100.0); Mean Platelet Volume 11.2 fL (9.4-12.4); Monocytes # (auto) 0.94 K/uL (0.11-0.59); Monocytes % (auto) 18.8 %; Neutrophils # (auto) 3.02 K/uL (1.40-6.50); Neutrophils % (auto) 60.6 %; Platelet Count 185 K/uL (130-400); RDW Coefficient of Variation 13.3 % (11.5-14.5); RDW Standard Deviation 44.8 fL (36.4-46.3); Red Blood Count 3.81 M/uL (4.20-5.40); White Blood Count 4.99 K/ul (4.8-10.8)
--- NOTE | 2023-01-30 08:59 | Gastrointestinal Consultation ---
Date of Consultation January 30, 2023 Assessment & Plan (1) Choledocholithiasis: MRCP + for stones in the bile duct. Has elevated LFTs and had chills over the weekend. THis is dx of choledocholithiasis, possible cholangitis. Plan 1. Because pt reports having had chills 2 days, would continue to cover w Zosyn. 2. Keep NPO. 3. Plan for ERCP this afternoon by Dr. Vicente Horton. 4. Further recommendations to follow ERCP. Offered to call pt family to discuss plan. Pt prefers to contact her family herself. Supervising Physician Co-Signing Physician Notes Attending attestation I have seen, examined this patient, and agree with the findings and above by our mid-level provider MILLICENT Finley, with the following additions: -no pain but present nausea, elevated lft's, mrcp positive. Plan for ERCP today History of Present Illness Reason for Consultation: Choledocholithiasis, abnormal LFTs Requesting Physician: Dr. Claire Attending Physician: Ilya Claire MD History of Present Illness Ms. Suzi Gtz is an 87 yr old female pt of MILLICENT Romano who presented to the ED late yesterday for bilat leg tingling, feeling of irregular heart beat. When asked, she also reports nausea yesterday, but denies any yellow eyes/skin, dark urine or fevers. On arrival, LFTs were moderately elevated and subsequent CT and MRCP with choledocholithiasis and CBD dilation, question distal stricture. No leukocytosis. She is receiving Zosyn IV. Seen by surgery who recommends eventual cholecystectomy (timing to be determined) though "no evidence of cholecystitis," per consult. The pt is awake, alert, oriented and free of abd pain. She is awake, alert, oriented, able to tell me the date and who the president is. I explained the ERCP in detail and asked if she had any questions. I offered to call her family, but she prefers to call her children herself when she is ready. Allergies Allergy/AdvReac Type Severity Reaction Status Date / Time No Known Allergies Allergy Verified 01/30/23 03:08 Home Medications Medication Instructions Recorded Confirmed Type lisinopril 10 1 tab PO QAM 07/26/18 01/30/23 History mg-hydrochlorothiazide 12.5 mg tablet lovastatin 10 mg tablet 10 mg PO QAM 11/04/19 01/30/23 History Otc Arthritis Pill 1 tab PO DIRECTED PRN Pain 01/30/23 01/30/23 History ibuprofen 200 mg tablet 400 mg PO Q6H PRN Pain 01/30/23 01/30/23 History omeprazole 20 mg capsule,delayed 20 mg PO DAILY 01/30/23 01/30/23 History release Patient History Medical History (Updated 01/30/23 @ 06:30 by Santos Toney MD) Hypokalemia Anemia hx of Diverticular disease Gastritis Poor historian Arthritis Hearing deficit [place] Hyperlipemia HTN (hypertension) Surgical History History of right cataract surgery History of esophagogastroduodenoscopy (EGD) History of colonoscopy Hx of left inguinal hernia repair History of right inguinal hernia repair History of tubal ligation History of tooth extraction H/O varicose vein stripping History of hemorrhoidectomy Family History Mother Family history of diabetes mellitus Social History Smoking Status: Never smoker Second Hand Exposure: No; Do You Dip or Chew Tobacco: No; Hx Alcohol Use: No Hx Substance Use: No Preferred Language: Montenegrin Communication Ability: Effective No Experience Required: No Beliefs That Will Affect Care: None Current Living Situation: Alone Feels Safe at Home: Yes Assistive Devices: Denture - Upper and Glasses Review of Systems Review of Systems: ROS: Gen: Denies weakness, fevers, weight loss Eyes: No eye redness, or pain, no recent vision changes Resp: No SOB, no cough Cardio: No palpitations/irregular beats, no chest pain GI: + nausea, no abdominal pain, no vomiting : Denies pain on urination Skin: No jaundice, itching or new rashes Physical Exam Constitutional: WD/WN, vitals as above Eyes: PERRL, conjunctivae normal, anicteric sclerae ENMT: external ear and nose normal, oropharynx normal Neck: trachea midline, no thyromegaly Respiratory: normal respiratory effort, lungs clear to auscultation Cardiovascular: RRR, no murmur, no edema Gastrointestinal (Abdomen): normal bowel sounds, soft, nontender, no hepatosplenomegaly Skin: no rashes, warm and dry Neurologic: PERRL, EOMI, accommodation nl, no face palsy, no dysarthria Psychiatric: Apperance: appropriately dressed Lymphatic: no cervical or axillary lymphadenopathy Results & Data Vital Signs (Past 12 Hours) Vital Signs Pulse Pulse Resp BP Pulse Ox O2 Del Method 01/30/23 08:50 68 20 94 Room Air 01/30/23 07:59 64 01/30/23 04:42 Room Air 01/30/23 04:41 75 16 102/65 98 Room Air 01/30/23 03:50 72 01/30/23 03:00 77 17 108/70 98 Room Air 01/30/23 00:00 92 H 17 161/83 H 92 Room Air 01/29/23 23:42 90 01/29/23 22:35 91 H 18 109/80 95 Room Air Laboratory Results wbc 4.9, Hb 12.1, Hct 34, Plts 185, Na 138, K 3.6, Cl 105, CO2 27, BUN 15, Cr 0.8, glucose 152. T Bili 1.3, AST 95, ALT 216, Alk Phos 324. Diagnostic Findings CTAP 01/29/23: Severe dilatation of the common bile duct containing at least one and possibly 2 stones. MRCP 01/30/23: Markedly dilated common bile duct. A stone is seen in the upper aspect of the common hepatic duct though an obstructing stone is not seen in the distal common bile duct. There is a suggestion of a distal stricture of the common bile duct. Multiple large gallstones. Mildly prominent pancreatic duct.
[2023-01-30 09:07] LABS: Albumin Globulin Ratio 1.1 (0.9-2); Albumin Level 3.4 gm/dl (3.4-5.0); BUN Creatinine Ratio 18.8 (10-20); Bilirubin,Total 1.3 mg/dl (0.2-1.0); Creatinine Clr Calc Pharmacy 47.7 ml/min; Est GFR (African American) 77.4 ml/min; Est GFR (Non-African American) 66.8 ml/min; Potassium 3.6 mmol/L (3.5-5.1); Total Protein 6.4 gm/dl (6.0-8.3)
[2023-01-30 09:24] LABS: Partial Thromboplastin Ratio 3.4
[2023-01-30 09:31] LABS: Partial Thromboplastin Time 96.8 Seconds (21.0-31.0)
[2023-01-30] MEDS ORDERED: OPTIRAY 320 125ml IV ONE (10:21)
--- NOTE | 2023-01-30 10:43 | CT Scan Report ---
CT angio chest PE protocol CT DOSE: 797.45 mGy.cm HISTORY: 87 years-old Female with PE. Acute shortness of breath TECHNIQUE: Multiple CTA images of the chest were obtained after the intravenous administration of 119 ml Optiray. Coronal and sagittal MIPS were obtained from the axial data set and were submitted for review. All measurements were obtained according to NASCET criteria. A dose lowering technique was u tilized adhering to the principles of ALARA. COMPARISON: Chest radiograph and CT abdomen and pelvis 01/29/2023, MRCP 01/30/2023. FINDINGS: CTA: The heart is mildly enlarged. Moderate coronary artery calcifications. And atherosclerosis of the tho racic aorta without aneurysm. Unremarkable pulmonary artery. CT CHEST: No thyroid nodule or lymphadenopathy. No pneumothorax, pleural effusion or airspace consolidation. Mi ld subsegmental bibasilar atelectasis. No suspicious pulmonary nodules or masses. Central airways are patent. Cholelithiasis with biliary ductal dilation and cystic duct calculus. Degenerative changes of the enid ulders and spine. IMPRESSION: 1. Unremarkable CTA of the chest. No pulmonary emboli identified. 2. Please refer to the MRCP study of same day for discussion of the cholelithiasis with biliary ducta l dilation. ACT 112: Negative or not required by law. The above report was generated using voice recognition software. It may contain grammatical, syntax o r spelling errors. Electronically signed by: Edgar Pimentel M.D. 01/30/2023 10:40 AM
[2023-01-30] MEDS ORDERED: ePHEDrine sulfate 50 MG/ML AMP IV PRN (12:50)
[2023-01-30] MEDS ORDERED: fentaNYL citrate PF 100 MCG/2 ML VIAL IV PRN (12:50)
[2023-01-30] MEDS ORDERED: ATROPINE SULFATE 0.1 MG/ML 10ML SYR IV PRN (12:50)
[2023-01-30] MEDS ORDERED: LIDOCAINE 2% 2 ML VIAL/AMP(20MG/ML) INFIL ONE (12:56)
[2023-01-30] MEDS ORDERED: PROPOFOL IV EMULSION 10 MG/ML 20 ML VIAL IV ONE ×2 (12:56→13:27)
--- NOTE | 2023-01-30 12:56 | History & Physical Bridge Note ---
Date of Service January 30, 2023 History & Physical Bridge Note I have examined the patient, reviewed the History & Physical and in the interval since the performance of the History & Physical I have noted the following changes of clinical significance: no changes noted The patient presents with a history of abdominal discomfort elevated liver enzymes and imaging consistent with choledocholithiasis. Given this we will proceed with ERCP today for biliary decompression. We discussed risks and benefits of the procedure to include bleeding, infection, perforation, pain, pancreatitis and need for follow-up studies.
[2023-01-30] MEDS ORDERED: fentaNYL citrate PF 100 MCG/2 ML VIAL ONE (12:57)
[2023-01-30] MEDS ORDERED: MIDAZOLAM HCL 1 MG/ML 2ML VIAL ONE (12:57)
--- NOTE | 2023-01-30 13:10 | Anesthesiology Consultation ---
Date of Service January 30, 2023 Assessment & Plan Chart Review Chart Review: Acceptable Risk for Surgery and Patient NOT seen in Pre Admission Testing Consults Requested none ASA ASA3 Proposed Anesthesia Anesthesia Type: MAC Risk / Benefits Reviewed With: PT / POA / Parent / Guardian, Accepts Plan and Informed Consent Obtained History Surgery Operation Date: 01/30/23 14:00 Proposed Procedures p Endoscopic Retrograde Cholangiopancreato - Vicente Horton, DO Height/Weight Height: 5 ft 2 in Weight: 74.6 kg Allergies Allergy/AdvReac Type Severity Reaction Status Date / Time No Known Allergies Allergy Verified 01/30/23 03:08 Medications Home Medications Medication Instructions Recorded Confirmed Last Taken lisinopril 10 1 tab PO QAM 07/26/18 01/30/23 10/05/21 mg-hydrochlorothiazide 12.5 mg tablet lovastatin 10 mg tablet 10 mg PO QAM 11/04/19 01/30/23 10/05/21 Otc Arthritis Pill 1 tab PO DIRECTED PRN Pain 01/30/23 01/30/23 Unknown ibuprofen 200 mg tablet 400 mg PO Q6H PRN Pain 01/30/23 01/30/23 Unknown omeprazole 20 mg capsule,delayed 20 mg PO DAILY 01/30/23 01/30/23 Unknown release Active Medications Generic Name Dose Route Start Last Admin Trade Name Freq PRN Reason Stop Dose Admin Piperacillin Sod/Tazobactam 100 mls @ 25 mls/hr 01/30/23 07:00 01/30/23 12:06 Sod 4.5 gm/ Dextrose IV 02/09/23 06:59 Infused Q8H DIONY Infusion Protocol NPO Date Last Intake of Fluids: 01/29/23 Time Last Intake of Fluids: 14:00 Date Last Intake of Solids: 01/29/23 Time Last Intake of Solids: 16:00 Past Medical History Medical History (Updated 01/30/23 @ 06:30 by Santos Toney MD) Hypokalemia Anemia hx of Diverticular disease Gastritis Poor historian Arthritis Hearing deficit [place] Hyperlipemia HTN (hypertension) Exercise / Class Metabolic Activity II 4-5 Yardwork/Stairs/Walk up hill Past Family History Family History Mother Family history of diabetes mellitus Past Surgical History Surgical History History of right cataract surgery History of esophagogastroduodenoscopy (EGD) History of colonoscopy Hx of left inguinal hernia repair History of right inguinal hernia repair History of tubal ligation History of tooth extraction H/O varicose vein stripping History of hemorrhoidectomy Past Anesthesia History No Hx of Anesthesia Complications and No Family Hx of Anesthesia Complications History of PONV No Hx of PONV and No Hx of Motion Sickness Social History Smoking Status: Never smoker Do You Dip or Chew Tobacco: No Hx Alcohol Use: No Hx Substance Use: No substance use type: does not use Physical Exam Vital Signs Last Vital Signs Temp 36.7 C 01/30/23 12:27 Pulse 73 01/30/23 12:27 Resp 18 01/30/23 12:27 BP 144/78 H 01/30/23 12:27 Pulse Ox 98 01/30/23 12:27 O2 Del Method Room Air 01/30/23 12:27 ENMT Mouth: + dentures Thyromental Distance: > or= 3.5 Finger Breadths Mallampati Class: II Neck normal visual inspection Respiratory normal respiratory effort Auscultation: lungs clear to auscultation bilaterally Cardiovascular Rate/Rhythm: regular rate and regular rhythm Psychiatric Orientation: alert Testing Laboratory Results 01/30/23 08:25 01/30/23 08:25 PT 11.0 Seconds (9.0-12.0) 01/29/23 20:16 INR 1.0 (0.9-1.1) 01/29/23 20:16 APTT 96.8 Seconds (21.0-31.0) H* 01/30/23 08:25
[2023-01-30] MEDS ORDERED: INDOMETHACIN 50 MG SUPP PR ONE (13:15)
[2023-01-30] MEDS ORDERED: ONDANSETRON INJ 2 MG/ML 2 ML VIAL ONE (13:27)
--- NOTE | 2023-01-30 14:20 | GI REPORT ---
Patient Name: Suzi Gtz Procedure Date: 01/30/2023 1:20 PM Date of : 1935 Admit Type: Inpatient Age: 87 Gender: Female Attending MD: Vicente Horton DO, Procedure: ERCP Providers: Vicente Horton DO Referring MD: Ilya Claire Md Indications: Abdominal pain of suspected biliary origin, Abnormal MRCP, Elevated liver enzymes Medicines: General Anesthesia Complications: No immediate complications. Estimated blood loss: Minimal. Estimated Blood Loss: Estimated blood loss was minimal. Estimated blood loss was minimal. Procedure: Pre-Anesthesia Assessment: - Prior to the procedure, a History and Physical was performed, and patient medications, allergies and sensitivities were reviewed. The patient's tolerance of previous anesthesia was reviewed. - The risks and benefits of the procedure and the sedation options and risks were discussed with the patient. All questions were answered and informed consent was obtained. - Patient identification and proposed procedure were verified prior to the procedure by the physician, the nurse and the sheet sorter. The procedure was verified in the procedure room. - Pre-procedure physical examination revealed no contraindications to sedation. - ASA Grade Assessment: III - A patient with severe systemic disease. - After reviewing the risks and benefits, the patient was deemed in satisfactory condition to undergo the procedure in an ambulatory setting. - The anesthesia plan was to use general anesthesia. - Immediately prior to administration of medications, the patient was re-assessed for adequacy to receive sedatives. - The heart rate, respiratory rate, oxygen saturations, blood pressure, adequacy of pulmonary ventilation, and response to care were monitored throughout the procedure. - The physical status of the patient was re-assessed after the procedure. After obtaining informed consent, the scope was passed under direct vision. Throughout the procedure, the patient's blood pressure, pulse, and oxygen saturations were monitored continuously. The Duodenoscope was introduced through the mouth, and advanced to the duodenum and used to inject contrast into the bile duct. The ERCP was accomplished without difficulty. The patient tolerated the procedure well. Findings: The yard supervisor film was normal. The esophagus was successfully intubated under direct vision without detailed examination of the pharynx, larynx, and associated structures, and upper GI tract. The upper GI tract was grossly normal. The major papilla was on the rim of a diverticulum. The major papilla was congested. The bile duct was deeply cannulated with the short-nosed traction sphincterotome and guidewire. Contrast was injected. I personally interpreted the bile duct images. Contrast extended to the hepatic ducts. The main bile duct was severely dilated, with a stone causing an obstruction. The largest diameter was 20 mm. The gallbladder contained multiple filling defects thought to be stones. The lower third of the main bile duct contained a single segmental stenosis 20 mm in length. Biliary sphincterotomy was made with a monofilament Fusion OMNI sphincterotome using ERBE electrocautery. Minor bleeding from the sphincterotomy was successfully treated. Area was successfully injected with 4 mL of a 1:10,000 solution of epinephrine through the ERCP scope for hemostasis of bleeding caused by the procedure using a Isabella Catheter (bleeding stopped). The lower third of the main bile duct was successfully dilated with a 10 mm balloon dilator held inflated for 3 minutes. To discover objects, the biliary tree was swept with an 18 mm balloon and 20 mm balloon starting at the bifurcation. Sludge was swept from the duct. One large (2 to 2.5 cm size) pale pigmented stone was removed. No stones remained. One 10 Fr by 10 cm covered metal stent was placed 9 cm into the common bile duct (Stanton Viabil) for stricture remodeling. Bile flowed through the stent. The stent was in good position. The large stone were removed with a Hight[employer] Ret[employer] Net with the ERCP scope. Indomethacin 100 mg was given via suppository to decrease the risk of post-ERCP pancreatitis (PEP). Impression: - The major papilla was on the rim of a diverticulum. - The major papilla appeared congested. - A filling defect consistent with a large stone was seen on the cholangiogram. 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 The stricture was fibrotic. - Choledocholithiasis was found. Complete removal was accomplished by biliary sphincterotomy and balloon extraction. - One covered metal stent was placed into the common bile duct. - Indomethacin given to decrease risk of post-ERCP pancreatitis. Recommendation: - Avoid aspirin and nonsteroidal anti-inflammatory medicines for 1 week. - Avoid anticoagulation for 72 hours. - Broad Spectrum antibiotic coverage for 14 days - Clear liquid diet today. - Refer to a surgeon to discuss cholecystectomy. - Repeat ERCP in 3 months to remove stent. Vicente Horton D.O. Vicente Horton, 01/30/2023 2:20:03 PM This report has been signed electronically. Note Initiated On: 01/30/2023 1:20 PM Number of Addenda: 0 I attest to the content of the Intraoperative Record and orders documented therein, exceptions below {[id number]}
--- NOTE | 2023-01-30 14:20 | Post Operative Brief Note ---
Immediate Post Op Note v1 Date of Surgery January 30, 2023 Pre & Post Diagnosis Operation Date: 01/30/23 14:00 Pre-Op Diagnosis: CBD STONE, R SUP FEM VEIN DVT, PALPITATIONS Post-Op Diagnosis: CBD stone I identified the patient and participated in the time-out.: Yes Procedure Operation Date: 01/30/23 14:00 Actual Procedures p Endoscopic Retrograde Cholangiopancreato - Vicente Horton DO Surgeon Vicente Horton DO Ingot Buggy Operator none Estimated Blood Loss 5 Findings Consistent with Post-Op Diagnosis
--- NOTE | 2023-01-30 14:22 | Communication Note ---
Date of Service: January 30, 2023 The patient underwent ERCP today for elevated liver enzymes, abdominal discomfort showing choledocholithiasis. A biliary sphincterotomy was performed, a large gallstone was removed from the common bile duct. A covered stent into the bile duct to help with stricture remodeling. Recommendations Patient may have clear liquids today Broad spectrum antibiotic coverage for total of 14 days No NSAIDs for 1 week Avoid anticoagulation for 72 hours General surgery consultation to discuss cholecystectomy Repeat ERCP in 3 months for stent removal
--- NOTE | 2023-01-30 15:16 | Anesthesiology Progress Note ---
Date of Service January 30, 2023 Anesthesia Post Procedure Vital Signs Vital Signs: Temp Pulse Pulse Pulse Resp BP BP 01/30/23 15:00 74 15 170/85 H 01/30/23 14:50 74 22 171/90 H 01/30/23 14:40 36.5 C 71 18 171/95 H 01/30/23 14:30 74 16 164/81 H 01/30/23 14:20 74 19 122/63 01/30/23 14:13 36.5 C 77 18 133/73 01/30/23 12:27 36.7 C 73 18 01/30/23 12:04 67 20 01/30/23 08:50 68 20 01/30/23 07:59 64 01/30/23 04:42 01/30/23 04:41 75 16 01/30/23 03:50 72 01/30/23 03:00 77 17 01/30/23 00:00 92 H 17 01/29/23 23:42 90 01/29/23 22:35 91 H 18 01/29/23 20:02 91 H 01/29/23 19:55 93 H 18 01/29/23 19:54 01/29/23 19:03 37.0 C 89 16 182/95 H BP Pulse Ox O2 Del Method O2 Flow Rate 01/30/23 15:00 97 Room Air 01/30/23 14:50 98 Room Air 01/30/23 14:40 98 Room Air 01/30/23 14:30 96 Room Air 01/30/23 14:20 95 Room Air 01/30/23 14:13 95 Oxymask 5 01/30/23 12:27 144/78 H 98 Room Air 01/30/23 12:04 112/65 96 Room Air 01/30/23 08:50 94 Room Air 01/30/23 07:59 01/30/23 04:42 Room Air 01/30/23 04:41 102/65 98 Room Air 01/30/23 03:50 01/30/23 03:00 108/70 98 Room Air 01/30/23 00:00 161/83 H 92 Room Air 01/29/23 23:42 01/29/23 22:35 109/80 95 Room Air 01/29/23 20:02 01/29/23 19:55 185/92 H 97 Room Air 01/29/23 19:54 97 Room Air 01/29/23 19:03 98 Room Air Transfer of Care Handoff Completed per policy Notes Mental Status: alert / awake / arousable Patient Amnestic to Procedure: Yes Nausea / Vomiting: adequately controlled Pain: adequately controlled Airway Patency, RR, SpO2: stable & adequate BP & HR: stable & adequate Hydration State: stable & adequate Anesthetic Complications: no major complications apparent
--- NOTE | 2023-01-30 16:50 | Communication Note ---
Date of Service: January 30, 2023 I went to the patient's room twice today but failed to see the patient. She had already gone to the OR for ERCP And has still remained there. In brief, patient presented with worsening of her chronic bilateral knee pain. She was diagnosed with acute lower extremity DVT. She had lab findings suggestive of biliary obstruction and thus a CT abdomen pelvis was done that showed dilated bile duct with stones. It was followed by an MRCP that confirmed it. The patient was seen in consultation by GI who performed an ERCP today. I am looking at the ERCP note. The stone was removed and a stent was placed. GI recommends no anticoagulation for 72 hours. However the patient was found to have an acute DVT. I personally spoke to Dr. Horton expressing my concerns about no anticoagulation for [address] Horton agreed on starting her on anticoagulation tomorrow morning. I decided to start her on heparin drip tomorrow a.m. since it can be turned off quickly in case she bleeds. Continue Zosyn IV every 8 General surgery on board. neck step would be a laparoscopic cholecystectomy. Awaiting surgery input for timing of the procedure.
--- NOTE | 2023-01-30 19:26 | Electrocardiogram Report ---
Test Reason : Blood Pressure : / mmHG Vent. Rate : 091 BPM Atrial Rate : 091 BPM P-R Int : 156 ms QRS Dur : 090 ms QT Int : 356 ms P-R-T Axes : 052 012 051 degrees QTc Int : 437 ms Normal sinus rhythm Normal ECG When compared with ECG of 04-NOV-2019 08:21, No significant change was found Confirmed by Maikol Salcedo ([id number]) on 01/30/2023 7:26:23 PM Referred By: REFERRED SELF Confirmed By:Ritesh Salcedo
--- NOTE | 2023-01-30 20:10 | Fluoroscopy Report ---
[place] ERCP biliary ductal CLINICAL HISTORY: ERCP COMPARISON STUDY: CT of the abdomen and pelvis January 29, 2023. MRCP January 30, 2023. FLUOROSCOPY TIME: 1 minute and 37 seconds. Ka, r: 25.40 mGy FLUOROSCOPIC IMAGES: 16 FINDINGS: Fluoroscopy was provided during ERCP. The common bile duct was cannulated. A filling defect within the common bile duct are consistent with calculi. Balloon sweep through the common bile duct was performed. Stricture within the distal common bile duct is noted. By fluoroscopy, this stricture is pathologically indeterminate. A common bile duct stent was placed. IMPRESSION: Fluoroscopy provided during ERCP with placement of a common bile duct stent. These image s demonstrate a common bile duct calculus and suspected stricture within the distal CBD. ACT 112: Negative or not required by law. Electronically signed by: Nile Jacobs M.D. 01/30/2023 8:08 PM
[2023-01-31] MEDS: PIPERACILLIN/TAZOBACTAM 4.5 GM in DEXTROSE 5% MINI-B 100 ML IV SCH ×3 (06:17→22:05)
[2023-01-31 06:31] LABS: Basophils # (auto) 0.01 K/uL (0.00-0.20); Basophils % (auto) 0.2 %; Eosinophils # (auto) 0.02 K/uL (0.00-0.50); Eosinophils % (auto) 0.3 %; Hematocrit (blood only) 38.5 % (37.0-47.0); Hemoglobin 13.3 g/dl (12.0-16.0); Immature Granulocytes # (auto) 0.06 K/uL (0.01-0.20); Lymphocytes # (auto) 1.19 K/uL (1.20-3.40); Mean Corpuscular Hemoglobin 31.4 pg (25.0-34.0); Mean Corpuscular Hgb Conc 34.5 g/dL (32.0-36.0); Mean Platelet Volume 10.9 fL (9.4-12.4); Monocytes # (auto) 1.07 K/uL (0.11-0.59); Neutrophils # (auto) 3.59 K/uL (1.40-6.50); Neutrophils % (auto) 60.5 %; Platelet Count 207 K/uL (130-400); RDW Coefficient of Variation 12.5 % (11.5-14.5); RDW Standard Deviation 41.6 fL (36.4-46.3); Red Blood Count 4.23 M/uL (4.20-5.40); White Blood Count 5.94 K/ul (4.8-10.8)
[2023-01-31 06:51] LABS: Albumin Globulin Ratio 1.1 (0.9-2); Albumin Level 3.1 gm/dl (3.4-5.0); BUN Creatinine Ratio 17.4 (10-20); Bilirubin,Total 1.1 mg/dl (0.2-1.0); Calcium 8.5 mg/dl (8.6-10.3); Creatinine Clr Calc Pharmacy 40.9 ml/min; Est GFR (African American) 65.3 ml/min; Est GFR (Non-African American) 56.4 ml/min; Globulin 2.7 gm/dl (2.5-4.0); Potassium 3.9 mmol/L (3.5-5.1); Total Protein 5.8 gm/dl (6.0-8.3)
[2023-01-31] MEDS ORDERED: Heparin IV Adult Wt-Based Low-Dose *NO* INITIAL Bolus Protocol IV SCH (07:30)
[2023-01-31] MEDS: HEPARIN SODIUM/DEXTROSE 25,000 UNITS/500 ML BAG IV SCH (08:00)
--- NOTE | 2023-01-31 08:21 | Gastroenterology Progress Note ---
Date of Service January 31, 2023 Assessment & Plan (1) Choledocholithiasis: Plan: MRCP + for stones in the bile duct. Has elevated LFTs and had chills over the weekend. THis is dx of choledocholithiasis, possible cholangitis. Plan 1. No GI contraindication to a regular diet - but would defer diet to surgery service. 2. No NSAIDs x 1 wk 3. No anticoagulation for 72 hours. 4. [employer] antibiotic coverage for 14 days 5. Reviewed surgery recommendations - plan for cholecystomy tomorrow. 6. Repeat ERCP in 3 months to remove stent. Our office will contact her to arrange. 7. GI will sign off. Please recall if questions. Admission and Anticipated Discharge Date Admission Date: January 30, 2023 Supervising Physician Co-Signing Physician Notes Attending attestation I have seen, examined this patient, and agree with the findings and above by our mid-level provider MILLICENT Finley, with the following additions: Doing well post ERCP Will need repeat ERCP for stent removal in 6-8 wks Diet and Choleystectomy per General surgery Will sign off, call with questions Subjective 87, female, post procedure day #1 from ERCP w sphincterotomy and sweeping of the bile ducts w removal of a large stone and placement of a covered metal stent. LFTs improved today. Patient is sitting up in the bed, awake alert and tells us that she feels well. Review of Systems Review of Systems: ROS: Gen: Denies weakness, fevers, weight loss Eyes: No eye redness, or pain, no recent vision changes Resp: No SOB, no cough Cardio: No palpitations/irregular beats, no chest pain GI: + nausea, no abdominal pain, no vomiting : Denies pain on urination Skin: No jaundice, itching or new rashes Physical Exam Constitutional: WD/WN, vitals as above Eyes: PERRL, conjunctivae normal, anicteric sclerae ENMT: external ear and nose normal, oropharynx normal Neck: trachea midline, no thyromegaly Respiratory: normal respiratory effort, lungs clear to auscultation Cardiovascular: RRR, no murmur, no edema Gastrointestinal (Abdomen): normal bowel sounds, soft, nontender, no hepatosplenomegaly Skin: no rashes, warm and dry Neurologic: PERRL, EOMI, accommodation nl, no face palsy, no dysarthria Psychiatric: Apperance: appropriately dressed Lymphatic: no cervical or axillary lymphadenopathy Results & Data Vital Signs (Past 12 Hours) Vital Signs Temp Pulse Pulse Resp BP Pulse Ox O2 Del Method 01/31/23 08:02 36.9 C 68 16 121/68 95 Room Air 01/31/23 07:56 69 01/31/23 03:31 36.6 C 68 18 106/61 94 Room Air 01/31/23 00:15 36.6 C 77 18 97/61 L 93 Room Air 01/30/23 23:00 76 Laboratory Results WBC 5.9, Hb 13.3, HCT 38.5, PLT S207, NA 140, K3.9, CL 105, CO2 29, BUN 16, CR 0.9, glucose 116. T. bili 1.1, AST 51, ALT 88, alk phos 169
[2023-01-31 09:07] LABS: INR 1.1 (0.9-1.1); Partial Thromboplastin Time 27.8 Seconds (21.0-31.0); Prothrombin Time 11.6 Seconds (9.0-12.0)
--- NOTE | 2023-01-31 12:30 | Surgery Progress Note ---
Date of Service January 31, 2023 Assessment & Plan (1) Choledocholithiasis: Plan: POD 1 ERCP with stent Patient sitting up in bed Denies abd pain, cp, sob, fever, chills Tolerating low fiber diet without n/v VSS , WBC 5.9 T. Bili 1.1 (1.3), AST 51 (95), ALT 88 (129), Alk phos. 169 (212) Plan to take pt to OR for Robotic Laparoscopic Cholecystectomy 02/01/[address] Shetty On heparin gtt for DVT in leg, this will need to be held in the AM surgery is tentatively scheduled for early afternoon NPO at [place] , may take meds with sip Admission and Anticipated Discharge Date Admission Date: January 30, 2023 Supervising Physician Co-Signing Physician Notes 87-year-old female with newly diagnosed DVT and incidentally found choledocholithiasis status post ERCP and stent placement. She is feeling well and tolerating a diet. She denies any history of postprandial biliary colic. On exam afebrile stable vitals, abdomen soft, nontender. LFTs downtrending, WBC normal. Given that she has newly diagnosed DVT will need to start oral anticoagulation, I think it is in her best interest to have cholecystectomy while inpatient. Will plan for this tomorrow. She will need her heparin drip held around midnight or 2 AM. plan for robotic assisted laparoscopic cholecystectomy with possible cho langiogram tomorrow risks discussed to include but not limited to bleeding, infection, retained stone, bile leak, open surgery, damage to surrounding structures including bile duct, need for future or more extensive surgery, failure to treat symptoms, and risks of anesthesia. N.p.o. after midnight Hold heparin drip after 2 AM Subjective Patient sitting up in bed Denies abd pain, cp, sob, fever, chills Tolerating low fiber diet without n/v Review of Systems Constitutional: no fever and no chills Respiratory: no dyspnea Cardiovascular: no chest pain Gastrointestinal: no abdominal pain, no bloating, no nausea and no vomiting Genitourinary: no problem reported Physical Exam Physical Exam: alert awake Constitutional: cooperative and comfortable; no acute distress Respiratory: normal respiratory effort and able to speak in complete sentences; no respiratory distress Cardiovascular: Rate/Rhythm: regular rate Gastrointestinal (Abdomen): Inspection/Auscultation: abdomen normal to inspection; abdomen not distended Percussion/Palpation: abdomen soft; abdomen nontender and no guarding Results & Data Vital Signs (Past 12 Hours) Vital Signs Temp Pulse Pulse Resp BP Pulse Ox O2 Del Method 01/31/23 08:02 98.4 F 68 16 121/68 95 Room Air 01/31/23 07:56 69 01/31/23 03:31 97.9 F 68 18 106/61 94 Room Air PG Care Time/CCT Total # of Minutes Spent Total Time Spent with Patient: Total time spent is greater than 50% in coordination of care (as documented) at patient's floor/unit and/or counseling patient: Coding Level of Care Code 91756 SUB INP/OBS CARE 235MIN Diagnoses Choledocholithiasis K80.50
--- NOTE | 2023-01-31 15:31 | Hospitalist Progress Note ---
Date of Service January 31, 2023 Assessment & Plan (1) Acute deep vein thrombosis (DVT) of distal vein of right lower extremity: (2) Choledocholithiasis: (3) Palpitations: (4) Abnormal LFTs: (5) Common bile duct dilatation: (6) Arthritis: Plan Right superficial femoral vein nonocclusive DVT- CTA of the chest is negative Patient is now on a heparin drip This will be held from 2 AM as the patient is going for laparoscopic cholecystectomy tomorrow Abnormal LFTs/choledocholithiasis- patient underwent ERCP with stone removal and stent placement on 01/30 Next step is laparoscopic cholecystectomy which will be done tomorrow Will hold heparin drip from 2 AM in anticipation of lap gia Continue Zosyn 4.5 mg IV every 8 for now Bilateral knee osteoarthritis/left shoulder osteoarthritis- Patient has had injections in the left shoulder, should consider injections of knees in the outpatient setting Admission and Anticipated Discharge Date Admission Date: January 30, 2023 Subjective patient feels well. Denies chest pain or shortness of breath. Denies abdominal pain. Review of Systems Review of Systems: All systems reviewed & are unremarkable except as noted in Subjective Physical Exam Physical Exam: General: Awake, conversant Heart: S1, S2/regular rate and rhythm, no murmur rubs or gallops Lungs: Clear to auscultation bilaterally. Normal effort Abdomen: Soft/nontender/nondistended. No hepatosplenomegaly Extremities: No clubbing/cyanosis. No edema Behavior: Appropriate, cooperative Results & Data Results & Data Vital Signs (Past 12 Hours) Vital Signs Temp Pulse Pulse Resp BP Pulse Ox O2 Del Method 01/31/23 08:02 36.9 C 68 16 121/68 95 Room Air 01/31/23 07:56 69 01/31/23 03:31 36.6 C 68 18 106/61 94 Room Air Laboratory Results Abnormal lab results 01/30/23 01/31/23 Range/Units 20:18 05:55 Lymph # (Auto) 1.19 L (1.20-3.40) K/uL [place] # (Auto) 1.07 H (0.11-0.59) K/uL POC Glucose 116 H (70-99) mg/dl Calcium 8.5 L (8.6-10.3) mg/dl Total Bilirubin 1.1 H (0.2-1.0) mg/dl AST 51 H (13-39) U/L ALT 88 H (7-52) U/L Alkaline Phosphatase 169 H (34-104) U/L Total Protein 5.8 L (6.0-8.3) gm/dl Albumin 3.1 L (3.4-5.0) gm/dl PG Care Time/CCT Total # of Minutes Spent Total Time Spent with Patient: Total time spent is greater than 50% in coordination of care (as documented) at patient's floor/unit and/or counseling patient: Coding Level of Care Code 53647 SUB INP/OBS CARE 2/35MIN Diagnoses Acute deep vein thrombosis (DVT) of distal vein of right lower extremity I82.4Z1 Choledocholithiasis K80.50 Palpitations R00.2 Abnormal LFTs R79.89 Common bile duct dilatation K83.8 Arthritis M19.90
[2023-01-31 16:08] LABS: Partial Thromboplastin Ratio 1.2; Partial Thromboplastin Time 33.3 Seconds (21.0-31.0)
[2023-01-31] MEDS ORDERED: HEPARIN SOD (PORCINE) 1000 UNIT/ML IV ONE (16:17)
[2023-02-01 00:07] LABS: Partial Thromboplastin Ratio 1.7
[2023-02-01 00:32] LABS: Partial Thromboplastin Time 46.7 Seconds (21.0-31.0)
[2023-02-01] MEDS ORDERED: [UNRECOGNIZED DRUG - REMARK] ONE (02:00)
[2023-02-01 05:31] LABS: Albumin Globulin Ratio 1.1 (0.9-2); Albumin Level 3.3 gm/dl (3.4-5.0); BUN Creatinine Ratio 18.4 (10-20); Bilirubin,Total 0.7 mg/dl (0.2-1.0); Calcium 8.6 mg/dl (8.6-10.3); Creatinine Clr Calc Pharmacy 38.4 ml/min; Est GFR (African American) 60.5 ml/min; Est GFR (Non-African American) 52.2 ml/min; Magnesium 2.1 mg/dl (1.7-2.4); Potassium 4.1 mmol/L (3.5-5.1); Total Protein 6.3 gm/dl (6.0-8.3)
[2023-02-01 05:45] LABS: Basophils # (auto) 0.01 K/uL (0.00-0.20); Basophils % (auto) 0.2 %; Eosinophils # (auto) 0.04 K/uL (0.00-0.50); Eosinophils % (auto) 0.7 %; Hematocrit (blood only) 39.9 % (37.0-47.0); Hemoglobin 13.6 g/dl (12.0-16.0); Immature Granulocytes # (auto) 0.03 K/uL (0.01-0.20); Immature Granulocytes % (auto) 0.5 %; Lymphocytes # (auto) 1.27 K/uL (1.20-3.40); Lymphocytes % (auto) 21.1 %; Mean Corpuscular Hemoglobin 31.3 pg (25.0-34.0); Mean Corpuscular Hgb Conc 34.1 g/dL (32.0-36.0); Mean Corpuscular Volume 91.7 fL (80.0-100.0); Mean Platelet Volume 11.1 fL (9.4-12.4); Monocytes # (auto) 0.89 K/uL (0.11-0.59); Monocytes % (auto) 14.8 %; Neutrophils # (auto) 3.77 K/uL (1.40-6.50); Neutrophils % (auto) 62.7 %; Platelet Count 224 K/uL (130-400); RDW Coefficient of Variation 12.7 % (11.5-14.5); RDW Standard Deviation 42.5 fL (36.4-46.3); Red Blood Count 4.35 M/uL (4.20-5.40); White Blood Count 6.01 K/ul (4.8-10.8)
[2023-02-01] MEDS: PIPERACILLIN/TAZOBACTAM 4.5 GM in DEXTROSE 5% MINI-B 100 ML IV SCH ×3 (07:38→22:01)
[2023-02-01] MEDS ORDERED: ePHEDrine sulfate 50 MG/ML AMP IV PRN (07:55)
[2023-02-01] MEDS ORDERED: ATROPINE SULFATE 0.1 MG/ML 10ML SYR IV PRN (07:55)
[2023-02-01] MEDS ORDERED: fentaNYL citrate PF 100 MCG/2 ML VIAL IV PRN (07:55)
[2023-02-01] MEDS ORDERED: ONDANSETRON INJ 2 MG/ML 2 ML VIAL IV PRN (07:55)
--- NOTE | 2023-02-01 07:59 | Anesthesiology Consultation ---
Date of Service February 01, 2023 Assessment & Plan (1) Encounter for pre-operative examination: Chart Review Chart Review: Acceptable Risk for Surgery and Patient NOT seen in Pre Admission Testing Consults Requested none History Surgery Operation Date: 01/30/23 14:00 Proposed Procedures p Endoscopic Retrograde Cholangiopancreato - Vicente Horton DO Operation Date: 02/01/23 09:35 Proposed Procedures p Robotic Laparoscopic Cholecystectomy - Zhang Shetty DO, FACS Height/Weight Height: 5 ft 2 in Weight: 70.8 kg Allergies Allergy/AdvReac Type Severity Reaction Status Date / Time No Known Allergies Allergy Verified 01/30/23 03:08 Medications Home Medications Medication Instructions Recorded Confirmed Last Taken lisinopril 10 1 tab PO QAM 07/26/18 01/30/23 10/05/21 mg-hydrochlorothiazide 12.5 mg tablet lovastatin 10 mg tablet 10 mg PO QAM 11/04/19 01/30/23 10/05/21 Otc Arthritis Pill 1 tab PO DIRECTED PRN Pain 01/30/23 01/30/23 Unknown ibuprofen 200 mg tablet 400 mg PO Q6H PRN Pain 01/30/23 01/30/23 Unknown omeprazole 20 mg capsule,delayed 20 mg PO DAILY 01/30/23 01/30/23 Unknown release Active Medications Generic Name Dose Route Start Last Admin Trade Name Freq PRN Reason Stop Dose Admin Piperacillin Sod/Tazobactam 100 mls @ 25 mls/hr 01/30/23 07:00 02/01/23 07:38 Sod 4.5 gm/ Dextrose IV 02/09/23 06:59 25 mls/hr Q8H DIONY Administration Protocol Heparin Sodium/Dextrose 25,000 units in 500 mls @ 0 mls/hr 01/31/23 07:45 02/01/23 02:09 Heparin Sodium/Dextrose IV 03/02/23 07:44 0 units/hr .Q0M DIONY 0 mls/hr Titration Protocol 0 UNITS/HR Past Medical History Medical History (Updated 02/01/23 @ 07:58 by Dc Asencio MD) Acute deep vein thrombosis (DVT) of distal vein of right lower extremity Hypokalemia Anemia hx of Diverticular disease Gastritis Poor historian Arthritis Hearing deficit [place] Hyperlipemia HTN (hypertension) Exercise / Class Metabolic Activity II 4-5 Yardwork/Stairs/Walk up hill Past Family History Family History Mother Family history of diabetes mellitus Past Surgical History Surgical History History of right cataract surgery History of esophagogastroduodenoscopy (EGD) History of colonoscopy Hx of left inguinal hernia repair History of right inguinal hernia repair History of tubal ligation History of tooth extraction H/O varicose vein stripping History of hemorrhoidectomy Past Anesthesia History No Hx of Anesthesia Complications and No Family Hx of Anesthesia Complications Social History Smoking Status: Never smoker Do You Dip or Chew Tobacco: No Hx Alcohol Use: No Hx Substance Use: No substance use type: does not use Physical Exam Vital Signs Last Vital Signs Temp 36.9 C 02/01/23 08:58 Pulse 73 02/01/23 08:58 Resp 18 02/01/23 08:58 BP 143/69 H 02/01/23 08:58 Pulse Ox 95 02/01/23 08:58 O2 Del Method Room Air 02/01/23 08:58 O2 Flow Rate 5 01/30/23 14:13 Testing Laboratory Results 02/01/23 04:54 02/01/23 04:54 PT 11.6 Seconds (9.0-12.0) 01/31/23 07:35 INR 1.1 (0.9-1.1) 01/31/23 07:35 APTT 46.7 Seconds (21.0-31.0) H* 01/31/23 22:50 Electrocardiogram Date: 01/30/23 DICTATED BY: Maikol Salcedo MD Test Reason : Blood Pressure : / mmHG Vent. Rate : 091 BPM Atrial Rate : 091 BPM P-R Int : 156 ms QRS Dur : 090 ms QT Int : 356 ms P-R-T Axes : 052 012 051 degrees QTc Int : 437 ms Normal sinus rhythm Normal ECG When compared with ECG of 04-NOV-2019 08:21, No significant change was found Confirmed by Maikol Salcedo ([id number]) on 01/30/2023 7:26:23 PM Other Testing Chest CT 01/30/23: CT angio chest PE protocol CT DOSE: 797.45 mGy.cm HISTORY: 87 years-old Female with PE. Acute shortness of breath TECHNIQUE: Multiple CTA images of the chest were obtained after the intravenous administration of 119 ml Optiray. Coronal and sagittal MIPS were obtained from the axial data set and were submitted for review. All measurements were obtained according to NASCET criteria. A dose lowering technique was utilized adhering to the principles of ALARA. COMPARISON: Chest radiograph and CT abdomen and pelvis 01/29/2023, MRCP 01/30/2023. FINDINGS: CTA: The heart is mildly enlarged. Moderate coronary artery calcifications. And atherosclerosis of the thoracic aorta without aneurysm. Unremarkable pulmonary artery. CT CHEST: No thyroid nodule or lymphadenopathy. No pneumothorax, pleural effusion or airspace consolidation. Mild subsegmental bibasilar atelectasis. No suspicious pulmonary nodules or masses. Central airways are patent. Cholelithiasis with biliary ductal dilation and cystic duct calculus. Degenerative changes of the shoulders and spine. IMPRESSION: 1. Unremarkable CTA of the chest. No pulmonary emboli identified. 2. Please refer to the MRCP study of same day for discussion of the cholelithiasis with biliary ductal dilation.
[2023-02-01] MEDS ORDERED: LIDOCAINE 2% 2 ML VIAL/AMP(20MG/ML) INFIL ONE (08:54)
[2023-02-01] MEDS ORDERED: DEXAMETHASONE SOD INJ 4 MG/ML VIAL ONE (08:54)
[2023-02-01] MEDS ORDERED: ONDANSETRON INJ 2 MG/ML 2 ML VIAL ONE (08:54)
[2023-02-01] MEDS ORDERED: PROPOFOL IV EMULSION 10 MG/ML 20 ML VIAL IV ONE (08:54)
[2023-02-01] MEDS ORDERED: fentaNYL citrate PF 100 MCG/2 ML VIAL ONE (08:54)
[2023-02-01] MEDS ORDERED: INDOCYANINE GREEN 25 MG VIAL INJ ONE (09:36)
--- NOTE | 2023-02-01 09:36 | Surgery Progress Note ---
Date of Service February 01, 2023 Assessment & Plan (1) Choledocholithiasis: Plan: Choledocholithiasis status post ERCP plan for robotic assisted laparoscopic cholecystectomy with possible cholangiogram risks discussed to include but not limited to bleeding, infection, retained stone, bile leak, open surgery, damage to surrounding structures including bile duct, need for future or more extensive surgery, failure to treat symptoms, and risks of anesthesia. Admission and Anticipated Discharge Date Admission Date: January 30, 2023 Subjective No overnight events. Patient without pain. Heparin drip turned off this morning. Physical Exam Physical Exam: alert awake Constitutional: cooperative and comfortable; no acute distress Respiratory: normal respiratory effort and able to speak in complete sentences; no respiratory distress Cardiovascular: Rate/Rhythm: regular rate Gastrointestinal (Abdomen): Inspection/Auscultation: abdomen normal to inspection; abdomen not distended Percussion/Palpation: abdomen soft; abdomen nontender and no guarding Results & Data Vital Signs (Past 12 Hours) Vital Signs Temp Pulse Pulse Resp BP Pulse Ox O2 Del Method 02/01/23 08:58 36.9 C 73 18 143/69 H 95 Room Air 02/01/23 08:07 36.6 C 69 18 143/80 H 97 Room Air 02/01/23 03:31 36.6 C 71 18 125/72 95 Room Air 01/31/23 23:12 36.7 C 66 18 128/69 95 Room Air 01/31/23 21:52 68 Laboratory Results Laboratory Results - last 24 hr 01/31/23 01/31/23 02/01/23 15:23 22:50 04:54 WBC 6.01 RBC 4.35 Hgb 13.6 Hct 39.9 MCV 91.7 MCH 31.3 MCHC 34.1 RDW Std Deviation 42.5 RDW Coeff of Vanesa 12.7 Plt Count 224 MPV 11.1 Immature Gran % (Auto) 0.5 Neut % (Auto) 62.7 Lymph % (Auto) 21.1 [place] % (Auto) 14.8 Eos % (Auto) 0.7 Baso % (Auto) 0.2 Neut # (Auto) 3.77 Lymph # (Auto) 1.27 [place] # (Auto) 0.89 H Eos # (Auto) 0.04 Baso # (Auto) 0.01 Immature Gran # (Auto) 0.03 APTT 33.3 H 46.7 H* PTT Ratio 1.2 1.7 Sodium 141 Potassium 4.1 Chloride 106 Carbon Dioxide 31 Anion Gap 4 BUN 18 Creatinine 0.98 Est Cr Clr Drug Dosing 38.4 Est GFR ( Amer) 60.5 Est GFR (Non-Af Amer) 52.2 BUN/Creatinine Ratio 18.4 Glucose 95 Calcium 8.6 Magnesium 2.1 Total Bilirubin 0.7 AST 36 ALT 71 H Alkaline Phosphatase 168 H Total Protein 6.3 Albumin 3.3 L Globulin 3.0 Albumin/Globulin Ratio 1.1 PG Care Time/CCT Total # of Minutes Spent Total Time Spent with Patient: Total time spent is greater than 50% in coordination of care (as documented) at patient's floor/unit and/or counseling patient: Coding Level of Care Code 70220 SUB INP/OBS CARE MIN Diagnoses Choledocholithiasis K80.50
[2023-02-01] MEDS ORDERED: BUPIVACAINE 0.5 % 5 MG/1 ML MPF 30ML VIAL ONE (10:00)
[2023-02-01] MEDS ORDERED: LACTATED RINGER'S 1,000 ML IV SCH (10:15)
[2023-02-01] MEDS ORDERED: PHENYLEPHRINE 100MCG/ML 10ML SYR IV ONE (10:30)
[2023-02-01] MEDS ORDERED: ROCURONIUM BROMIDE 10 MG/ML 5 ML VIAL IV ONE (10:30)
[2023-02-01] MEDS ORDERED: ePHEDrine sulfate 50 MG/5 ML SYR ONE (10:32)
[2023-02-01] MEDS ORDERED: SUGAMMADEX SODIUM 200 MG/2 ML VIAL IV ONE (11:29)
--- NOTE | 2023-02-01 11:34 | Operative Report ---
PG Post Operative Report Pre & Post Diagnosis Operation Date: 02/01/23 09:35 Pre-Op Diagnosis: Choledocholithiasis, Cholelithiasis Post-Op Diagnosis: Choledocholithiasis, cholelithiasis, chronic cholecystitis I identified the patient and participated in the time-out.: Yes Procedure Operation Date: 02/01/23 09:35 Actual Procedures p Robotic Laparoscopic Cholecystectomy(Not Applicable) - Zhang Shetty DO, KAREN Surgeon Zhang Shetty DO, KAREN Gi Technician Dwight Gaitan Estimated Blood Loss 5 Findings Consistent with Post-Op Diagnosis Moderate chronic cholecystitis. Critical view of safety obtained, cystic duct and artery doubly clipped and divided Specimens Gallbladder Anesthesia Type General Complications none Disposition Accompanied Patient To Recovery: No Disposition: Recovery Room Indications 87-year-old female with choledocholithiasis status post ERCP, plan for robotic cholecystectomy. The risks of the procedure were discussed, all questions were answered, and the patient agreed to proceed with surgery as planned. Description of Procedure The patient was properly identified, consented, and taken to the operating room where she was placed in the supine position. 2.5 mg of indocyanine green were administered IV approximately 45 min prior to the surgery. General endotracheal anesthesia was induced. SCDs and a safety belt were placed. Preoperative antibiotics were administered. The patient's abdomen was prepped and draped in the standard sterile fashion. A surgical timeout was performed and all parties were in agreement that this was the correct patient and procedure to be performed and we continued as planned. An incision was made just above the umbilicus and to the left of midline. Veress needle was inserted and saline drop test confirmed entry to the abdomen. The abdomen was insufflated with carbon dioxide which the patient tolerated incident. Veress needle was removed and the abdomen is entered using the Optiview technique and a 5 mm camera. The introducer was removed and the abdomen inspected. No damage from initial trocar placement or Veress needle placement was identified. There were no significant abnormalities to the 4 quadrants of the abdomen. 8 mm robotic ports were then placed on the left and right. An additional 5 mm education administrative assistant port was placed in the lateral right subcostal position. The patient was placed in reverse Trendelenburg position and rotated towards the left. The robot was then docked and the camera and robotic instruments were inserted. Gallbladder was chronically and moderately inflamed. The dome of the gallbladder was grasped by the education administrative assistant and retracted towards the left upper quadrant and the infundibulum was retracted toward the right lower quadrant revealing Calot's triangle. Peritoneal attachments were taken down with electrocautery and blunt dissection. The cystic duct and artery were circumferentially dissected. A window of safety was obtained showing the cystic duct entering the gallbladder with no aberrant structures noted. We were able to identify the cystic duct utilizing the ICG. The cystic duct and artery were doubly clipped and divided. The gallbladder was then lifted off the gallbladder fossa with electrocautery. The right upper quadrant was irrigated and hemostasis was found to be good. Extra care was taken to ensure excellent hemostasis given that the patient would be on a heparin drip postoperatively. The gallbladder was placed in an Endo Catch bag and removed through the one of the port sites. The instruments were removed and the robot was undocked. The trochars were removed and the abdomen was allowed to collapse. The skin of all ports was closed with 4-0 Monocryl subcuticular sutures. Dermabond was placed over the wounds. The patient was extubated in the operating room and taken to the PACU where she recovered without apparent incident. All sponge, instrument and needle counts were correct at the conclusion of the procedure. The patient tolerated the procedure well. The nurse practitioner was present and scrubbed for the entirety of the case and was essential in positioning the patient, prepping and draping, retraction and exposure, driving the laparoscope, exchange of the robotic instruments removal of the gallbladder, closure of the incisions, and placement of the dressings. I attest to the content of the Intraoperative Record and any orders documented therein. Any exceptions are noted below.
[2023-02-01] MEDS ORDERED: MoRPHine SULFATE 2 MG/ML CARP IV PRN (13:45)
[2023-02-01] MEDS ORDERED: MoRPHine SULFATE 4 MG/ML 1 ML CARP\\VIAL IV PRN (13:45)
[2023-02-01] MEDS ORDERED: ACETAMINOPHEN 325 MG TAB PO PRN (13:45)
--- NOTE | 2023-02-01 13:55 | Anesthesiology Progress Note ---
Date of Service February 01, 2023 Anesthesia Post Procedure Vital Signs Vital Signs: Temp Pulse Pulse Pulse Pulse Resp BP 02/01/23 13:47 36.6 C 89 18 145/76 H 02/01/23 13:20 36.9 C 89 18 121/70 02/01/23 13:00 36.9 C 91 H 16 154/77 H 02/01/23 12:50 86 20 158/82 H 02/01/23 12:40 87 20 166/94 H 02/01/23 12:30 36.5 C 89 20 155/92 H 02/01/23 12:20 93 H 16 155/93 H 02/01/23 12:10 93 H 16 164/88 H 02/01/23 12:00 94 H 18 168/88 H 02/01/23 11:50 99 H 14 176/91 H 02/01/23 11:46 37.3 C 104 H 12 179/93 H 02/01/23 08:58 36.9 C 73 18 143/69 H 02/01/23 08:07 36.6 C 69 18 143/80 H 02/01/23 07:30 02/01/23 07:00 68 02/01/23 03:31 36.6 C 71 18 125/72 01/31/23 23:12 36.7 C 66 18 128/69 01/31/23 21:52 68 01/31/23 19:14 36.7 C 73 18 120/70 01/31/23 16:32 71 01/31/23 15:51 36.7 C 67 16 128/77 Pulse Ox O2 Del Method O2 Flow Rate 02/01/23 13:47 89 L Room Air 02/01/23 13:20 93 Room Air 02/01/23 13:00 92 Room Air 02/01/23 12:50 98 Nasal Cannula 2 02/01/23 12:40 98 Nasal Cannula 2 02/01/23 12:30 98 Nasal Cannula 2 02/01/23 12:20 93 Room Air 02/01/23 12:10 93 Room Air 02/01/23 12:00 99 Oxymask 6 02/01/23 11:50 99 Oxymask 6 02/01/23 11:46 97 Oxymask 6 02/01/23 08:58 95 Room Air 02/01/23 08:07 97 Room Air 02/01/23 07:30 Room Air 02/01/23 07:00 02/01/23 03:31 95 Room Air 01/31/23 23:12 95 Room Air 01/31/23 21:52 01/31/23 19:14 94 Room Air 01/31/23 16:32 01/31/23 15:51 92 Room Air Pain Intensity Abdomen: Pain Intensity: 4 Transfer of Care Handoff Completed per policy Notes Mental Status: alert / awake / arousable and participated in evaluation Patient Amnestic to Procedure: Yes Nausea / Vomiting: adequately controlled Pain: adequately controlled Airway Patency, RR, SpO2: stable & adequate BP & HR: stable & adequate Hydration State: stable & adequate Anesthetic Complications: no major complications apparent and Pt Satisfied with anesthetic care
[2023-02-01] MEDS ORDERED: ALUMINUM/MAGNESIUM/SIMETH (MAALOX MAX) 30 ML UDC PO PRN (15:42)
--- NOTE | 2023-02-01 15:44 | Hospitalist Progress Note ---
Date of Service February 01, 2023 Assessment & Plan (1) Acute deep vein thrombosis (DVT) of distal vein of right lower extremity: (2) Choledocholithiasis: (3) Palpitations: (4) Abnormal LFTs: (5) Common bile duct dilatation: (6) Arthritis: Plan Right superficial femoral vein nonocclusive DVT- CTA of the chest is negative Heparin drip was held at 2 AM for the patient to have laparoscopic cholecystectomy. It can be resumed at 8 PM tonight, per surgery team Abnormal LFTs/choledocholithiasis- patient underwent ERCP with stone removal and stent placement on 01/30 Laparoscopic cholecystectomy done today 02/01 Per surgery, heparin drip can be resumed today at 8 PM. Ordered Continue Zosyn 4.5 mg IV every 8 for now Patient is complaining of nausea and upper abdominal discomfort. Added Mylanta. Zofran and pain medications already ordered. Bilateral knee osteoarthritis/left shoulder osteoarthritis- Patient has had injections in the left shoulder, should consider injections of knees in the outpatient setting Admission and Anticipated Discharge Date Admission Date: January 30, 2023 Subjective Patient just came back from the laparoscopic cholecystectomy. She is complaining of some nausea and upper abdominal discomfort. Review of Systems Review of Systems: All systems reviewed & are unremarkable except as noted in Subjective Physical Exam Physical Exam: General: Awake, conversant Heart: S1, S2/regular rate and rhythm, no murmur rubs or gallops Lungs: Clear to auscultation bilaterally. Normal effort Abdomen: Soft/nontender/nondistended. No hepatosplenomegaly Extremities: No clubbing/cyanosis. No edema Behavior: Appropriate, cooperative Results & Data Results & Data Vital Signs (Past 12 Hours) Vital Signs Temp Pulse Pulse Pulse Pulse Resp BP 02/01/23 14:32 36.6 C 99 H 18 02/01/23 13:47 36.6 C 89 18 145/76 H 02/01/23 13:20 36.9 C 89 18 121/70 02/01/23 13:00 36.9 C 91 H 16 154/77 H 02/01/23 12:50 86 20 158/82 H 02/01/23 12:40 87 20 166/94 H 02/01/23 12:30 36.5 C 89 20 155/92 H 02/01/23 12:20 93 H 16 155/93 H 02/01/23 12:10 93 H 16 164/88 H 02/01/23 12:00 94 H 18 168/88 H 02/01/23 11:50 99 H 14 176/91 H 02/01/23 11:46 37.3 C 104 H 12 179/93 H 02/01/23 08:58 36.9 C 73 18 143/69 H 02/01/23 08:07 36.6 C 69 18 143/80 H 02/01/23 07:30 02/01/23 07:00 68 BP Pulse Ox O2 Del Method O2 Flow Rate 02/01/23 14:32 158/79 H 99 Room Air 02/01/23 13:47 89 L Room Air 02/01/23 13:20 93 Room Air 02/01/23 13:00 92 Room Air 02/01/23 12:50 98 Nasal Cannula 2 02/01/23 12:40 98 Nasal Cannula 2 02/01/23 12:30 98 Nasal Cannula 2 02/01/23 12:20 93 Room Air 02/01/23 12:10 93 Room Air 02/01/23 12:00 99 Oxymask 6 02/01/23 11:50 99 Oxymask 6 02/01/23 11:46 97 Oxymask 6 02/01/23 08:58 95 Room Air 02/01/23 08:07 97 Room Air 02/01/23 07:30 Room Air 02/01/23 07:00 Laboratory Results Abnormal lab results 01/31/23 01/31/23 02/01/23 Range/Units 15:23 22:50 04:54 Jennings # (Auto) 0.89 H (0.11-0.59) K/uL APTT 33.3 H 46.7 H* (21.0-31.0) Seconds ALT 71 H (7-52) U/L Alkaline Phosphatase 168 H (34-104) U/L Albumin 3.3 L (3.4-5.0) gm/dl PG Care Time/CCT Total # of Minutes Spent Total Time Spent with Patient: Total time spent is greater than 50% in coordination of care (as documented) at patient's floor/unit and/or counseling patient: Coding Level of Care Code 18259 SUB INP/OBS CARE 2/35MIN Diagnoses Acute deep vein thrombosis (DVT) of distal vein of right lower extremity I82.4Z1 Choledocholithiasis K80.50 Palpitations R00.2 Abnormal LFTs R79.89 Common bile duct dilatation K83.8 Arthritis M19.90
[2023-02-01] MEDS: HEPARIN SODIUM/DEXTROSE 25,000 UNITS/500 ML BAG IV SCH (21:50)
[2023-02-01] MEDS: oxyCODONE/ACETAMINOPHEN 5mg/325mg TAB PO PRN (22:12)
[2023-02-02 02:48] LABS: Albumin Globulin Ratio 1.2 (0.9-2); BUN Creatinine Ratio 16.7 (10-20); Bilirubin,Total 0.6 mg/dl (0.2-1.0); Calcium 8.4 mg/dl (8.6-10.3); Creatinine Clr Calc Pharmacy 41.4 ml/min; Est GFR (African American) 67.1 ml/min; Est GFR (Non-African American) 57.9 ml/min; Globulin 2.6 gm/dl (2.5-4.0); Magnesium 2.1 mg/dl (1.7-2.4); Potassium 3.9 mmol/L (3.5-5.1); Total Protein 5.6 gm/dl (6.0-8.3)
[2023-02-02 02:57] LABS: Basophils # (auto) 0.02 K/uL (0.00-0.20); Basophils % (auto) 0.2 %; Eosinophils # (auto) 0.02 K/uL (0.00-0.50); Eosinophils % (auto) 0.2 %; Hematocrit (blood only) 36.9 % (37.0-47.0); Hemoglobin 12.5 g/dl (12.0-16.0); Immature Granulocytes # (auto) 0.06 K/uL (0.01-0.20); Immature Granulocytes % (auto) 0.7 %; Lymphocytes # (auto) 0.69 K/uL (1.20-3.40); Lymphocytes % (auto) 7.8 %; Mean Corpuscular Hemoglobin 31.5 pg (25.0-34.0); Mean Corpuscular Hgb Conc 33.9 g/dL (32.0-36.0); Mean Corpuscular Volume 92.9 fL (80.0-100.0); Mean Platelet Volume 10.7 fL (9.4-12.4); Monocytes # (auto) 1.13 K/uL (0.11-0.59); Monocytes % (auto) 12.8 %; Neutrophils # (auto) 6.92 K/uL (1.40-6.50); Neutrophils % (auto) 78.3 %; Platelet Count 197 K/uL (130-400); RDW Coefficient of Variation 12.6 % (11.5-14.5); RDW Standard Deviation 43.7 fL (36.4-46.3); Red Blood Count 3.97 M/uL (4.20-5.40); White Blood Count 8.84 K/ul (4.8-10.8)
[2023-02-02 03:10] LABS: Partial Thromboplastin Ratio 1.4; Partial Thromboplastin Time 38.9 Seconds (21.0-31.0)
[2023-02-02] MEDS: PIPERACILLIN/TAZOBACTAM 4.5 GM in DEXTROSE 5% MINI-B 100 ML IV SCH ×2 (07:39→15:15)
--- NOTE | 2023-02-02 08:56 | Surgery Progress Note ---
Date of Service February 02, 2023 Assessment & Plan (1) Hx laparoscopic cholecystectomy: Plan: POD #1 robotic cholecystectomy for history of choledocholithiasis status post ERCP and stent. Doing well, H&H stable. May start oral anticoagulation Diet as tolerated Ambulate, out of bed to chair, I-S Okay to discharge from general surgery standpoint Surgery will follow, call with questions or concerns Wound care instructions and activity restrictions reviewed Patient will need to follow-up in general surgery clinic in 2 weeks (2) Choledocholithiasis: (3) Acute deep vein thrombosis (DVT) of distal vein of right lower extremity: Admission and Anticipated Discharge Date Admission Date: January 30, 2023 Subjective POD #1 robotic cholecystectomy. Sore at extraction site. Otherwise tolerating diet no other issues. Physical Exam Constitutional: WD/WN, vitals as above Gastrointestinal (Abdomen): Inspection/Auscultation: + abdominal surgical incision (Dermabond in place, healing well) Percussion/Palpation: + abdomen tender (Appropriately tender to palpation) and abdomen soft; no guarding, abdomen not rigid and no hepatosplenomegaly Results & Data Vital Signs (Past 12 Hours) Vital Signs Temp Pulse Pulse Resp BP BP Pulse Ox 02/02/23 07:47 02/02/23 03:15 37.0 C 86 14 95/76 L 92 02/01/23 23:35 37.0 C 79 12 96/65 L 92 02/01/23 21:56 81 O2 Del Method 02/02/23 07:47 Room Air 02/02/23 03:15 Room Air 02/01/23 23:35 Room Air 02/01/23 21:56 Laboratory Results Laboratory Results - last 24 hr 02/02/23 01:55 WBC 8.84 RBC 3.97 L Hgb 12.5 Hct 36.9 L MCV 92.9 MCH 31.5 MCHC 33.9 RDW Std Deviation 43.7 RDW Coeff of Vanesa 12.6 Plt Count 197 MPV 10.7 Immature Gran % (Auto) 0.7 Neut % (Auto) 78.3 Lymph % (Auto) 7.8 Prowers % (Auto) 12.8 Eos % (Auto) 0.2 Baso % (Auto) 0.2 Neut # (Auto) 6.92 H Lymph # (Auto) 0.69 L [place] # (Auto) 1.13 H Eos # (Auto) 0.02 Baso # (Auto) 0.02 Immature Gran # (Auto) 0.06 APTT 38.9 H PTT Ratio 1.4 Sodium 139 Potassium 3.9 Chloride 106 Carbon Dioxide 28 Anion Gap 5 BUN 15 Creatinine 0.90 Est Cr Clr Drug Dosing 41.4 Est GFR ( Amer) 67.1 Est GFR (Non-Af Amer) 57.9 BUN/Creatinine Ratio 16.7 Glucose 115 H Calcium 8.4 L Magnesium 2.1 Total Bilirubin 0.6 AST 44 H ALT 61 H Alkaline Phosphatase 135 H Total Protein 5.6 L Albumin 3.0 L Globulin 2.6 Albumin/Globulin Ratio 1.2 PG Care Time/CCT Total # of Minutes Spent Total Time Spent with Patient: Total time spent is greater than 50% in coordination of care (as documented) at patient's floor/unit and/or counseling patient: Coding Level of Care Code 74373 Post Operative Follow-Up Diagnoses Hx laparoscopic cholecystectomy Z90.49 Choledocholithiasis K80.50 Acute deep vein thrombosis (DVT) of distal vein of right lower extremity I82.4Z1
[2023-02-02] MEDS: oxyCODONE/ACETAMINOPHEN 5mg/325mg TAB PO PRN ×2 (09:38→21:00)
[2023-02-02 11:22] LABS: Partial Thromboplastin Ratio 1.4; Partial Thromboplastin Time 39.3 Seconds (21.0-31.0)
[2023-02-02] MEDS: HEPARIN SODIUM/DEXTROSE 25,000 UNITS/500 ML BAG IV SCH ×2 (11:32→11:45)
--- NOTE | 2023-02-02 15:32 | Hospitalist Progress Note ---
Date of Service February 02, 2023 Assessment & Plan (1) Acute deep vein thrombosis (DVT) of distal vein of right lower extremity: (2) Choledocholithiasis: (3) Palpitations: (4) Abnormal LFTs: (5) Common bile duct dilatation: (6) Arthritis: Plan Right superficial femoral vein nonocclusive DVT- CTA of the chest is negative Patient is back on heparin drip Will switch to p.o. Eliquis starting tonight. Obtain surgery clearance Abnormal LFTs/choledocholithiasis- patient underwent ERCP with stone removal and stent placement on 01/30 Laparoscopic cholecystectomy done 02/01 Per surgery, heparin drip can be switched to p.o. Eliquis tonight discontinue IV Zosyn patient has been cleared for discharge by general surgery Bilateral knee osteoarthritis/left shoulder osteoarthritis- Patient has had injections in the left shoulder, should consider injections of knees in the outpatient setting Likely discharge tomorrow Admission and Anticipated Discharge Date Admission Date: January 30, 2023 Subjective patient feels well. Denies chest pain or shortness of breath. She is not feeling the upper epigastric pain anymore. Not nauseous today. Review of Systems Review of Systems: All systems reviewed & are unremarkable except as noted in Subjective Physical Exam Physical Exam: General: Awake, conversant Heart: S1, S2/regular rate and rhythm, no murmur rubs or gallops Lungs: Clear to auscultation bilaterally. Normal effort Abdomen: Soft/nontender/nondistended. No hepatosplenomegaly Extremities: No clubbing/cyanosis. No edema Behavior: Appropriate, cooperative Results & Data Results & Data Vital Signs (Past 12 Hours) Vital Signs Temp Pulse Pulse Resp BP Pulse Ox O2 Del Method 02/02/23 15:28 36.9 C 73 20 118/75 93 Room Air 02/02/23 11:11 36.7 C 73 16 105/60 93 Room Air 02/02/23 09:06 36.9 C 77 18 113/62 90 Room Air 02/02/23 07:47 Room Air 02/02/23 07:00 76 PG Care Time/CCT Total # of Minutes Spent Total Time Spent with Patient: Total time spent is greater than 50% in coordination of care (as documented) at patient's floor/unit and/or counseling patient: Coding Level of Care Code 62643 SUB INP/OBS CARE 2/35MIN Diagnoses Acute deep vein thrombosis (DVT) of distal vein of right lower extremity I82. 4Z1 Choledocholithiasis K80.50 Palpitations R00.2 Abnormal LFTs R79.89 Common bile duct dilatation K83.8 Arthritis M19.90
[2023-02-02] MEDS ORDERED: Heparin IV Adult Wt-Based Low-Dose *NO* INITIAL Bolus Protocol IV STA (15:38)
[2023-02-02] MEDS ORDERED: HEPARIN SODIUM/DEXTROSE 25,000 UNITS/500 ML BAG IV SCH (16:00)
[2023-02-02 18:23] LABS: Partial Thromboplastin Ratio 1.4
[2023-02-02] MEDS: APIXABAN 5 MG TABLET PO SCH (20:53)
[2023-02-03] MEDS: APIXABAN 5 MG TABLET PO SCH (08:29)
--- NOTE | 2023-02-03 10:54 | Discharge Summary ---
Date of Service February 03, 2023 Admission HPI Per Admitting Provider The patient is a 87-year-old female with a past medical history including hemorrhoids, gastritis, anemia, diverticulitis of jejunum. The patient is somewhat difficult to read and her presentation in the ED, and therefore a more extensive evaluation was performed in the ED as noted above. The patient's main complaint continues to be that of bilateral knee pain. She also reports having had a left shoulder injection by orthopedic surgery Dr. Leung Admission Exam Per Admitting Provider The patient is awake, alert and oriented, pleasant but intermittently mildly confused, well developed and well nourished, normocephalic and atraumatic, lying in bed and in no acute distress. HEENT--PERRL, EOMI, mucous membranes and oropharynx dry. Neck--supple. No JVD. No bruits. Thyroid normal, trachea midline, no adenopathy. Heart--normal S1 and S2. No murmurs, rubs or gallops. Lungs--clear bilaterally, no respiratory distress, no accessory muscle use. Abdomen--normal bowel sounds and soft. Nontender. Nondistended, no hernias or masses, no organomegaly. Extremities--no cyanosis or clubbing. No edema. Dermatologic--normal skin turgor, normal color, no abnormal lymph nodes, no rash. Neurologic--cranial nerves II through XII grossly intact. Rheumatologic--limited exam Psychiatric--pleasant, but difficult to read and intermittently confused related to symptoms Principal Diagnosis Acute DVT of the right lower extremity Gallstone status post ERCP stent and laparoscopic cholecystectomy Discharge Exam General: Awake, conversant Heart: S1, S2/regular rate and rhythm, no murmur rubs or gallops Lungs: Clear to auscultation bilaterally. Normal effort Abdomen: Soft/nontender/nondistended. No hepatosplenomegaly Extremities: No clubbing/cyanosis. No edema Behavior: Appropriate, cooperative Discharge Data Allergies Allergy/AdvReac Type Severity Reaction Status Date / Time No Known Allergies Allergy Verified 01/30/23 03:08 Consultations 01/30/23 02:07 ED Decision to Admit Stat 01/30/23 08:26 Consult Gastroenterology Routine Procedures Performed Operation Date: 02/01/23 09:35 Actual Procedures p Robotic Laparoscopic Cholecystectomy(Not Applicable) - Zhang Shetty DO, FACS Ordered Studies 01/29/23 19:32 US venous doppler LE BI Stat 01/29/23 23:02 CT Abd and Pelvis [CT abd pelvis IV con only] Stat 01/30/23 FL ERCP biliary ductal Routine 01/30/23 01:04 CT angio chest PE protocol Stat 01/30/23 02:05 MR MRCP Routine Hospital Course (1) Acute deep vein thrombosis (DVT) of distal vein of right lower extremity: (2) Choledocholithiasis: (3) Palpitations: (4) Abnormal LFTs: (5) Common bile duct dilatation: (6) Arthritis: (7) Hx laparoscopic cholecystectomy: Plan Right superficial femoral vein nonocclusive DVT- CTA of the chest is negative patient is now on p.o. Eliquis. Abnormal LFTs/choledocholithiasis- patient underwent ERCP with stone removal and stent placement on 01/30 Laparoscopic cholecystectomy done 02/01 Per surgery, heparin drip can be switched to p.o. Eliquis tonight discontinue IV Zosyn patient has been cleared for discharge by general surgery Patient will follow-up with general surgery and GI Bilateral knee osteoarthritis/left shoulder osteoarthritis- Patient has had injections in the left shoulder, should consider injections of knees in the outpatient setting Discharge today Total Time Total Time Spent Total Time Spent (In Minutes): 35 Discharge Plan Discharge Items Patient Disposition: Home - Home Health Services Reason For Visit: CBD STONE, R SUP FEM VEIN DVT, PALPITATIONS Discharge Diagnosis: Acute DVT of the right lower extremity Gallstone status post ERCP stent and laparoscopic cholecystectomy Activity: As commented below Activity Comment: No heavy lifting or strenuous activity for 2 to 3 weeks Lifting Comment: No lifting greater than 20 pounds for 2-week Bathing Comment: shower. no pools or baths for 2 weeks Exercise/Sports: Gradually increase as tolerated Driving/Machine Use: Resume 3 days after discharge Non-emergency contact: Surgeon Call non-emergency contact if: you have any medication questions, your symptoms worsen, your pain is unusual for you, your temperature is above 101, your wound has increased redness, your wound has increased drainage and your wound pain has increased Follow-up/Referrals: Zhang Shetty DO, FACS [Physician] - 02/20/23 10:00 am () Pamela Nye PA-C [Primary Care Provider] - 02/15/23 3:30 pm (THIS APPOINTMENT WILL BE WITH DR BORDEN.) Diet: Heart Healthy Addtl Attending Provider Instructions: You have surgical glue called dermabond on your surgical site incisions. You may shower with this on. This will tend to come off within a couple of weeks. Do not pick at it. Advised to follow-up with PCP in 1 week Advised to follow-up with general surgery in 2 weeks Advised that GI office will contact you to schedule an appointment. You will need a repeat ERCP in 3 months to remove the stent. Pending Studies at Discharge: Yes Studies:: Gallbladder pathology Stand-Alone Forms: My [facility] Medications and DC Order Prescriptions: New Eliquis 5 mg Tablet 10 mg PO BID Qty: 72 0RF Rx Instructions: advised to take 2 tablets by mouth twice a day until pm dose of 12/, then switch to 1 tablet by mouth twice a day. oxycodone-acetaminophen [Percocet] 5-325 mg tablet 1 - 2 tab PO Q6H PRN (Reason: pain) Qty: 10 0RF Continued lisinopril-hydrochlorothiazide 10-12.5 mg Tablet 1 tab PO QAM lovastatin 10 mg tablet 10 mg PO QAM omeprazole 20 mg capsule,delayed release(DR/EC) 20 mg PO DAILY Otc Arthritis Pill 1 tab PO DIRECTED PRN (Reason: Pain) Discontinued ibuprofen 200 mg Tablet 400 mg PO Q6H PRN (Reason: Pain) Discharge Orders: Discharge Order (Routine); Ordered 02/03/23 Ordered By: Ilya Claire Admission Data Admit Date/Time: 01/30/23 02:05 Attending Provider: Ilya Claire Admit Provider: Santos Toney Primary Care Provider: Pamela Nye Other Providers: Santos Toney; Urbano Ramirez Other Interventions: Discharge Summary Assessment (RN) Last Done: 02/03/23 14:15 Coding Level of Care Code 92271 INP/OBS DISCH >30 MIN Diagnoses Acute deep vein thrombosis (DVT) of distal vein of right lower extremity I82.4Z1 Choledocholithiasis K80.50 Palpitations R00.2 Abnormal LFTs R79.89 Common bile duct dilatation K83.8 Arthritis M19.90 Hx laparoscopic cholecystectomy Z90.49
[2023-02-03 12:49] LABS: Basophils # (auto) 0.01 K/uL (0.00-0.20); Basophils % (auto) 0.2 %; Eosinophils # (auto) 0.06 K/uL (0.00-0.50); Hematocrit (blood only) 41.5 % (37.0-47.0); Hemoglobin 13.6 g/dl (12.0-16.0); Immature Granulocytes # (auto) 0.05 K/uL (0.01-0.20); Immature Granulocytes % (auto) 0.8 %; Lymphocytes % (auto) 14.8 %; Mean Corpuscular Hemoglobin 31.1 pg (25.0-34.0); Mean Corpuscular Hgb Conc 32.8 g/dL (32.0-36.0); Mean Corpuscular Volume 94.7 fL (80.0-100.0); Monocytes % (auto) 13.2 %; Neutrophils # (auto) 4.25 K/uL (1.40-6.50); Platelet Count 218 K/uL (130-400); RDW Coefficient of Variation 13.1 % (11.5-14.5); Red Blood Count 4.38 M/uL (4.20-5.40); White Blood Count 6.07 K/ul (4.8-10.8)
--- NOTE | 2023-02-03 12:57 | Surgery Progress Note ---
Date of Service February 03, 2023 Assessment & Plan (1) Hx laparoscopic cholecystectomy: Plan: POD #2 robotic cholecystectomy for history of choledocholithiasis status post ERCP and stent. Doing well Okay to discharge from general surgery standpoint Surgery will follow peripherally if remains in house Wound care instructions and activity restrictions reviewed Patient will need to follow-up in general surgery clinic in 2 weeks f/u with GI as outpatient for stent removal (2) Choledocholithiasis: (3) Acute deep vein thrombosis (DVT) of distal vein of right lower extremity: Admission and Anticipated Discharge Date Admission Date: January 30, 2023 Subjective POD #2 robotic cholecystectomy. Sore at extraction site but improved. Otherwise tolerating diet no other issues. Physical Exam Physical Exam: alert awake Constitutional: WD/WN, vitals as above cooperative and comfortable; no acute distress Respiratory: normal respiratory effort and able to speak in complete sentences; no respiratory distress Cardiovascular: Rate/Rhythm: regular rate Gastrointestinal (Abdomen): Inspection/Auscultation: abdomen normal to inspection and + abdominal surgical incision (Dermabond in place, healing well); abdomen not distended Percussion/Palpation: + abdomen tender (Appropriately tender to palpation) and abdomen soft; no guarding, abdomen not rigid and no hepatosplenomegaly Results & Data Vital Signs (Past 12 Hours) Vital Signs Temp Pulse Pulse Resp BP Pulse Ox O2 Del Method 02/03/23 11:51 37.0 C 79 18 149/74 H 95 Room Air 02/03/23 07:51 62 02/03/23 07:31 36.7 C 76 17 121/70 90 Room Air 02/03/23 02:53 36.7 C 83 16 132/69 94 Room Air PG Care Time/CCT Total # of Minutes Spent Total Time Spent with Patient: Total time spent is greater than 50% in coordination of care (as documented) at patient's floor/unit and/or counseling patient: Coding Level of Care Code 15471 Post Operative Follow-Up Diagnoses Hx laparoscopic cholecystectomy Z90.49 Choledocholithiasis K80.50 Acute deep vein thrombosis (DVT) of distal vein of right lower extremity I82.4Z1
[2023-02-03 13:03] LABS: Albumin Globulin Ratio 1.2 (0.9-2); Albumin Level 3.4 gm/dl (3.4-5.0); BUN Creatinine Ratio 14.5 (10-20); Bilirubin,Total 0.6 mg/dl (0.2-1.0); Creatinine Clr Calc Pharmacy 44.8 ml/min; Est GFR (Non-African American) 63.9 ml/min; Globulin 2.9 gm/dl (2.5-4.0); Potassium 4.1 mmol/L (3.5-5.1); Total Protein 6.3 gm/dl (6.0-8.3)
== END 2023-02-03 15:56 | disposition home health service (06) | DRG 418 ==
LOC: ED 19:01 → SUATTDRO 01-30 02:05 → EDINP 01-30 02:05 → 2W 01-30 16:03

== ENCOUNTER 2024-11-23 14:44 | Inpatient (IN) ==
[2024-11-23] MEDS: SODIUM CHLORIDE 0.9% 500 ML IV SCH (15:46)
[2024-11-23] MEDS: cefTRIAXone SODIUM 2,000 MG/50 ML BAG IV STA (15:47)
[2024-11-23 16:06] LABS: Hematocrit (blood only) 46.5 % (37.0-47.0); Hemoglobin 15.4 g/dl (12.0-16.0); Immature Granulocytes # (auto) 0.12 K/uL (0.01-0.20); Immature Granulocytes % (auto) 1.0 %; Mean Corpuscular Hemoglobin 29.6 pg (25.0-34.0); Mean Corpuscular Volume 89.4 fL (80.0-100.0); Platelet Count 271 K/uL (130-400); RDW Standard Deviation 45.2 fL (36.4-46.3); Red Blood Count 5.20 M/uL (4.20-5.40); White Blood Count 12.60 K/ul (4.8-10.8)
--- NOTE | 2024-11-23 16:20 | Emergency Department Note ---
Impression & Plan Facial cellulitis ED Provider Note ED Provider Note NAME: ZHANG GARCIA AGE:89 SEX: Female : 1935 ARRIVES VIA: Private vehicle INFORMANT: Patient ED PROVIDER(s): Alyssa Babcock DO CHIEF COMPLAINT: Left facial infection HPI: This is an 89-year-old female who presents to the emergency department due to concern for swelling and redness of the left face and concern for infection. Patient states 2 days ago she noticed a small bump to the left lateral face and began to scratch at it. She states yesterday she noticed it seemed larger and today it was worse still. Family was concerned when they came to the house to check on her and brought her in for further evaluation. She states that seems to be extending both above and below where it originally was. She does have some pain at the jaw, no pain into the ear, no headaches, no difficulty swallowing. She denies any recent dental infections. No recent URI symptoms. No other rash or sores to any areas. Patient is not a diabetic. No history of MRSA. PAST MEDICAL HISTORY:See Below PAST SURGICAL HISTORY:See Below FAMILY HISTORY:See Below SOCIAL HISTORY:See Below HOME MEDICATIONS:See Below ALLERGIES:See Below VITALS:See Below PHYSICAL EXAMINATION: GENERAL: alert, well appearing, well nourished, no distress, non-toxic EYE EXAM: normal conjunctiva, PERRL and EOM's grossly intact OROPHARYNX: no exudate, no erythema, lips, buccal mucosa, and tongue normal and mucous membranes are moist NECK: supple, no nuchal rigidity, no adenopathy, non-tender LUNGS: Clear to auscultation. Normal chest wall mechanics, no w/r/r HEART: no murmurs, S1 normal and S2 normal ABDOMEN: abdomen soft, non-tender, normo-active bowel sounds, no masses, no rebound or guarding. BACK: Back is symmetrical on inspection and there is no deformity, no midline tenderness, no CVA tenderness. SKIN: no rashes, petechiae, orbruising UPPER EXTREMITIES: upper extremities are grossly normal. FROM, nml pulses b/l. LOWER EXTREMITIES: No pitting edema. FROM, nml pulses b/l. NEURO EXAM: Normal sensorium, cranial nerves II-XII grossly intact, normal speech, no facial droop,nogross weakness of arms, no gross weakness of legs. Gross sensation intact. No ataxia. Vital Signs: reviewed and remarkable Differential Diagnosis: cellulitis, abscess, mumps, osteomyelitis, lymphangitis, nec fasc, as well as others were considered MEDICAL DECISION MAKING: This is an 89-year-old female who presents to the emergency department with family at bedside due to concern for left facial redness and swelling and possible infection. Patient afebrile and hemodynamically stable. Labs drawn and sent, IV established, the patient was monitored on telemetry. She was given IV fluids and started on IV Rocephin. Patient initially declined pain medications stating she had taken Tylenol prior to evaluation. No evidence of airway involvement or respiratory distress. Involved area of the left face was outlined with a sterile marking pen, while she was monitored in emergency department this did not progress outside this demarcated line. Patient sent for CT of the face which did not show any discrete abscess or deeper infection, large area of left facial cellulitis likely from patient picking and excoriating a bump to the left face. Patient tolerated p.o. here. We did try ambulatory trial with her walker and she appeared unsteady. She stated she felt slightly weak and unsteady as well. After further discussion with daughter and patient who lives alone and would have to navigate steps in her house and out of concern for her safety, we discussed further inpatient management until she was improved and could return home. Case discussed with the hospitalist team for additional evaluation and management. Consultation(s): 2106: Discussed with Dr. Nichole, [place] hospitalist team, for additional evaluation and mgmt. ER Treatment Provided: See below Diagnostics Interpreted By Me: -Cardiac Monitoring: An order was placed for continuous cardiac monitoring. The monitor shows a rate of 88 with normal sinus rhythm. -Laboratory studies: As stated above and show below. -Imaging studies: CT face: no abscess Triage Nursing Note Reviewed Prior/Outside Records Reviewed Past Med/Surg History Problem List Facial abscess Facial cellulitis (Acute) HTN (hypertension) Ambulatory dysfunction Closed fracture of neck of left femur (Acute) Acute deep vein thrombosis (DVT) of distal vein of right lower extremity Arthritis Common bile duct dilatation Abnormal LFTs Hypokalemia Choledocholithiasis (Acute) Choledocholithiasis Bilateral leg pain (Acute) Chest pain (Acute) Palpitations (Acute) Black stool Bright red blood per rectum (Acute) Epigastric pain DVT prophylaxis Diverticulitis of jejunum (Acute) Encounter for pre-operative examination Anemia Gastritis Hemorrhoids Medical History Anemia hx of Diverticular disease Gastritis Poor historian Hearing deficit [place]OG[place]IUT Hyperlipemia Surgical History Hx laparoscopic cholecystectomy (02/01/23) Robotic Laparoscopic Cholecystectomy(Not Applicable) - Zhang Shetty DO, FACS History of right cataract surgery History of esophagogastroduodenoscopy (EGD) History of colonoscopy Hx of left inguinal hernia repair History of right inguinal hernia repair History of tubal ligation History of tooth extraction H/O varicose vein stripping History of hemorrhoidectomy Family History Mother Family history of diabetes mellitus Social History Smoking Status: Never smoker Second Hand Exposure: No; Do You Dip or Chew Tobacco: No; Tobacco Cessation Education Requested by Patient: No Hx Alcohol Use: No Hx Substance Use: No Preferred Language: Romansh Communication Ability: Effective Communication Ability Comment: OHOGAMIUT Reading Teacher Required: No Beliefs That Will Affect Care: None Current Living Situation: Alone Other Information That Helps Us Care for You: No Feels Safe at Home: Yes Safety Concerns: Feels Safe At This Time Assistive Devices: Denture - Upper, Glasses, Hearing Aid - Bilateral and Walker Allergies Allergies Allergy/AdvReac Type Severity Reaction Status Date / Time No Known Allergies Allergy Verified 08/27/24 10:47 Home Meds Home Medications Medication Instructions Recorded Confirmed lisinopril 10 1 tab PO QAM 07/26/18 11/23/24 mg-hydrochlorothiazide 12.5 mg tablet lovastatin 10 mg tablet 10 mg PO QAM 11/04/19 11/23/24 omeprazole 20 mg capsule,delayed 20 mg PO DAILY 01/30/23 11/23/24 release amitriptyline 10 mg tablet 10 mg PO HS 08/07/24 11/23/24 Previous Rx's Medication Instructions Recorded calcium 600 mg (as 1 cap PO BID #60 caps 08/17/24 carbonate)-vitamin D3 12.5 mcg (500 unit) capsule (Calcium with Vit D3) magnesium hydroxide 400 mg/5 mL 30 ml PO DAILY PRN #0 mL 08/17/24 oral suspension (Milk of Magnesia) polyethylene glycol 3350 17 gram 17 g PO BID17 #0 ea 08/17/24 oral powder packet (Miralax) Results & Data (ED) Vital Signs Vital Signs - 24 hr 11/23/24 14:52 11/23/24 15:58 11/23/24 16:00 Temperature 36.9 C Temperature Source Temporal Artery Scan Pulse Rate 106 H 96 H 91 H Pulse Rate from SpO2 Sensor 89 Respiratory Rate 19 23 Respiratory Effort / Characteristics Non-Labored Spontaneous Respiratory Depth Normal Blood Pressure 138/82 134/79 Blood Pressure Mean 100 97 Pulse Oximetry 95 93 Oxygen Delivery Method Room Air Room Air Sepsis Recent Fever Within 48 Hours No Sepsis New/Unexplained Change in Mental Status No Sepsis Action Taken by Nursing No Action Required 11/23/24 18:08 11/23/24 19:21 11/23/24 20:30 Temperature Temperature Source Pulse Rate 86 83 85 Pulse Rate from SpO2 Sensor 82 Respiratory Rate 16 24 18 Respiratory Effort / Characteristics Respiratory Depth Blood Pressure 150/102 H 156/92 H Blood Pressure Mean 116 113 Pulse Oximetry 96 Oxygen Delivery Method Sepsis Recent Fever Within 48 Hours Sepsis New/Unexplained Change in Mental Status Sepsis Action Taken by Nursing Laboratory Data 11/24/24 06:28 11/24/24 06:28 Lab Results 11/23/24 Range/Units 15:44 WBC 12.60 H (4.8-10.8) K/ul RBC 5.20 (4.20-5.40) M/uL Hgb 15.4 (12.0-16.0) g/dl Hct 46.5 (37.0-47.0) % MCV 89.4 (80.0-100.0) fL MCH 29.6 (25.0-34.0) pg MCHC 33.1 (32.0-36.0) g/dL RDW Std Deviation 45.2 (36.4-46.3) fL RDW Coeff of Vanesa 13.8 (11.5-14.5) % Plt Count 271 (130-400) K/uL MPV 11.1 (9.4-12.4) fL Immature Gran % (Auto) 1.0 % Neut % (Auto) 74.3 % Lymph % (Auto) 9.9 % [place] % (Auto) 14.5 % Eos % (Auto) 0.1 % Baso % (Auto) 0.2 % Neut # (Auto) 9.37 H (1.40-6.50) K/uL Lymph # (Auto) 1.25 (1.20-3.40) K/uL [place] # (Auto) 1.83 H (0.11-0.59) K/uL Eos # (Auto) 0.01 (0.00-0.50) K/uL Baso # (Auto) 0.02 (0.00-0.20) K/uL Immature Gran # (Auto) 0.12 (0.01-0.20) K/uL PT 11.0 (9.0-12.0) Seconds INR 1.0 (0.9-1.1) Sodium 134 L (136-145) mmol/L Potassium 3.9 (3.5-5.1) mmol/L Chloride 97 L (98-107) mmol/L Carbon Dioxide 29 (21-32) mmol/L Anion Gap 8 (3-11) BUN 23 (6-23) mg/dl Creatinine 0.78 (0.6-1.2) mg/dl Est Cr Clr Drug Dosing 39.1 ml/min eGFR 73.01 BUN/Creatinine Ratio 29.5 H (10-20) Glucose 116 H (70-99(Fasting)) mg/dl Calcium 10.1 (8.6-10.3) mg/dl Total Bilirubin 0.7 (0.2-1.0) mg/dl AST 27 (13-39) U/L ALT 22 (7-52) U/L Alkaline Phosphatase 89 (34-104) U/L Total Protein 8.3 (6.0-8.3) gm/dl Albumin 4.6 (3.4-5.0) gm/dl Globulin 3.7 (2.5-4.0) gm/dl Albumin/Globulin Ratio 1.2 (0.9-2) Administered Medications Amitriptyline HCl (Amitriptyline Hcl 10 Mg Tab) 10 mg PO HS DIONY Stop: 12/23/24 23:20 Last Admin: 11/23/24 23:56 Dose: 10 mg Documented By: SND Enoxaparin Sodium (Enoxaparin Inj 40 Mg/0.4 Ml Syr) 40 mg SQ Q24H DIONY Stop: 12/23/24 23:20 Last Admin: 11/23/24 23:56 Dose: 40 mg Documented By: YVETTE Lisinopril/HCTZ (Lisinopril/Hctz 10/12.5mg Tab) 1 tab PO QAM DIONY Stop: 12/24/24 08:59 Last Admin: 11/24/24 07:54 Dose: 1 tab Documented By: KEELY Vancomycin HCl 1,000 mg/ (Sodium Chloride) 270 mls @ 200 mls/hr IV Q24H DIONY Stop: 12/01/24 05:59 Last Infusion: 11/24/24 07:45 Dose: Infused Documented By: Admin: 11/24/24 06:21 Dose: 200 mls/hr Documented By: YVETTE Ampicillin Sodium/Sulbactam Sodium (Unasyn) 3,000 mg in 100 mls @ 200 mls/hr IV Q6H DIONY Stop: 12/01/24 00:00 Last Infusion: 11/24/24 06:20 Dose: Infused Documented By: Admin: 11/24/24 05:50 Dose: 200 mls/hr Documented By: Infusion: 11/24/24 01:04 Dose: Infused Documented By: Admin: 11/24/24 00:30 Dose: 200 mls/hr Documented By: YVETTE Lovastatin (Lovastatin 20 Mg Tab) 10 mg PO QAM DIONY Stop: 12/24/24 08:59 Last Admin: 11/24/24 07:55 Dose: 10 mg Documented By: KEELY Pantoprazole Sodium (Pantoprazole 40 Mg Tab) 40 mg PO DAILY DIONY Stop: 12/24/24 08:59 Last Admin: 11/24/24 07:55 Dose: 40 mg Documented By: KEELY Polyethylene Glycol (Polyethylene (Miralax) 17 Gm Pack) 17 gm PO BID17 DIONY Stop: 12/24/24 08:59 Last Admin: 11/24/24 09:16 Dose: 17 gm Documented By: KEELY Discontinued Medications Acetaminophen (Acetaminophen 325 Mg Tab) 650 mg PO NOW STA Stop: 11/23/24 19:44 Last Admin: 11/23/24 19:49 Dose: 650 mg Documented By: JEROD Sodium Chloride (Nss) 500 mls @ 125 mls/hr IV .Q4H DIONY Stop: 11/23/24 19:14 Last Infusion: 11/23/24 19:52 Dose: Infused Documented By: Admin: 11/23/24 15:46 Dose: 125 mls/hr Documented By: TDIgnacio Ceftriaxone Sodium (Rocephin) 2,000 mg in 50 mls @ 100 mls/hr IV NOW STA Stop: 11/23/24 15:43 Last Infusion: 11/23/24 16:17 Dose: Infused Documented By: Admin: 11/23/24 15:47 Dose: 100 mls/hr Documented By: DAO Vancomycin HCl 1,250 mg/ (Sodium Chloride) 275 mls @ 200 mls/hr IV NOW STA Stop: 11/23/24 22:57 Last Infusion: 11/24/24 00:29 Dose: Infused Documented By: Admin: 11/23/24 22:33 Dose: 200 mls/hr Documented By: SHILPI Ioversol (Optiray 320 100ml) 93 ml IV ONCE ONE Stop: 11/23/24 16:46 Last Admin: 11/23/24 16:45 Dose: 93 ml Documented By: EAShanna Imaging Data Radiologist's Impression: Face CT 11/23/24 15:14 CT MAXILLOFACIAL WITH CONTRAST: HISTORY: PAIN TECHNIQUE: CT of the face was obtained with intravenous contrast. Coronal and sagittal reformats were created. IV CONTRAST: 100 mL of OMNIPAQUE 300 COMPARISON: FINDINGS: Cellulitic changes in the left face/cheek with skin thickening and subcutaneous edema. No organized/drainable fluid collection is identified at this time. However there is a 1.5 cm area of somewhat expansile hypodensity just deep to the skin in this area (series 400, image 36) that may represent a developing abscess. There are multiple tiny skin based lesions in this area that may represent blisters. Incidental note of a homogeneously enhancing lesion in the left middle cranial fossa measuring 1.2 cm, seemingly adherent to the overlying dura Mild mucosal thickening of the paranasal sinuses. IMPRESSION: Cellulitic changes in the left face/cheek with skin thickening and subcutaneous edema. No organized/drainable fluid collection is identified at this time. However there is a 1.5 cm area of somewhat expansile hypodensity just deep to the skin in this area that may represent a developing abscess. Multiple tiny skin based lesions in this area may represent blisters. Incidental note of a probable meningioma measuring 1.2 cm in the left middle cranial fossa Electronically signed by Sigifredo Hernandez 11-23-2024 7:33 PM Discharge Plan Visit Data Chief Complaint: Facial Injury/Pain Stated Complaint: SORE ON FACE, SWELLING ED Provider: Alyssa Babcock Discharge Problem: Facial cellulitis Patient Disposition: Admitted As Inpatient Condition: Fair Discharge Instructions Interventions: ED Discharge Assessment Last Done: 11/23/24 23:04
[2024-11-23 16:34] LABS: Alanine Aminotransferase 22.0 U/L (7-52); Albumin Globulin Ratio 1.2 (0.9-2); Albumin Level 4.6 gm/dl (3.4-5.0); Alkaline Phosphatase 89.0 U/L (34-104); Anion Gap 8.0 (3-11); Bilirubin,Total 0.7 mg/dl (0.2-1.0); Blood Urea Nitrogen 23.0 mg/dl (6-23); Calcium 10.1 mg/dl (8.6-10.3); Carbon Dioxide 29.0 mmol/L (21-32); Chloride 97.0 mmol/L (98-107); Creatinine Clr Calc Pharmacy 39.1 ml/min; Globulin 3.7 gm/dl (2.5-4.0); Glucose 116.0 mg/dl (70-99(Fasting)); Potassium 3.9 mmol/L (3.5-5.1); Sodium 134.0 mmol/L (136-145); Total Protein 8.3 gm/dl (6.0-8.3)
[2024-11-23 16:40] LABS: INR 1.0 (0.9-1.1); Prothrombin Time 11.0 Seconds (9.0-12.0)
[2024-11-23] MEDS: OPTIRAY 320 100ml IV ONE (16:45)
--- NOTE | 2024-11-23 19:33 | CT Scan Report ---
CT MAXILLOFACIAL WITH CONTRAST: HISTORY: PAIN TECHNIQUE: CT of the face was obtained with intravenous contrast. Coronal and sagittal reformats were created. IV CONTRAST: 100 mL of OMNIPAQUE 300 COMPARISON: FINDINGS: Cellulitic changes in the left face/cheek with skin thickening and subcutaneous edema. No organized/drainable fluid collection is identified at this time. However there is a 1.5 cm area of somewhat expansile hypodensity just deep to the skin in this area (series 400, image 36) that may represent a developing abscess. There are multiple tiny skin based lesions in this area that may represent blisters. Incidental note of a homogeneously enhancing lesion in the left middle cranial fossa measuring 1.2 cm, seemingly adherent to the overlying dura Mild mucosal thickening of the paranasal sinuses. IMPRESSION: Cellulitic changes in the left face/cheek with skin thickening and subcutaneous edema. No organized/drainable fluid collection is identified at this time. However there is a 1.5 cm area of somewhat expansile hypodensity just deep to the skin in this area that may represent a developing abscess. Multiple tiny skin based lesions in this area may represent blisters. Incidental note of a probable meningioma measuring 1.2 cm in the left middle cranial fossa Electronically signed by Sigifredo Hernandez 11-23-2024 7:33 PM
[2024-11-23] MEDS: ACETAMINOPHEN 325 MG TAB PO STA (19:49)
[2024-11-23] MEDS ORDERED: VANCOMYCIN CONSULT ACTIVE PRN ×2 (21:26→23:21)
--- NOTE | 2024-11-23 22:07 | History & Physical Report ---
Date of Service November 23, 2024 Assessment & Plan (1) Facial cellulitis: (2) Facial abscess: (3) Ambulatory dysfunction: Plan Patient is an 89-year-old female with past medical history of DVT (2022), HTN, HLD, GERD, anemia. Patient presented due to 1 week of left facial swelling and pain found to have cellulitis with a possible developing abscess on facial CT being admitted for IV antibiotics. #left facial cellulitisnonseptic at time of admission, VSS with mild leukocytosis (WBC 12.60), afebrile. Face CT noted cellulitic changes in the left face/cheek with skin thickening and subcutaneous edema, 1.5 cm area of hypodensity just deep to skin that may represent a developing abscess. Given Rocephin in the ED; will transition to Unasyn and vancomycin with possible abscess - no previous positive cultures in EMR, no known allergies to abx MRSA nares ordered No open wound to obtain cultures from, defer on admission Warm compress as needed Tylenol as needed for pain Received NSS 500 mL at 125 mL/hour in the ED, promote oral hydration Trend CBC to monitor leukocytosis Trend BMP to monitor renal function with vancomycin use #Ambulatory dysfunctionpatient using rolling walker since fall resulting in hip fracture August 2024. Patient noted some unsteadiness with recent illness above, no other acute causes noted on admission (electrolytes and vital signs stable). - UA ordered PT/OT ordered #Meningiomaincidental finding on face CT noted probable meningioma measuring 1.2 cm in the left middle cranial fossa Follow with PCP #HTNcontinue lisinoprilHCTZ #Mental healthcontinue amitriptyline #HLDcontinue statin #GERDcontinue PPI VTE ppx: Lovenox, hx of DVT in 2022 Dispo: med surg Admission and Anticipated Discharge Date Admission Date: 11/23/24 History of Present Illness Chief Complaint: facial pain Primary Care Provider: Pamela Nye PA-C Patient is an 89-year-old female with past medical history of DVT (2022), HTN, HLD, GERD, anemia. Patient presented due to 1 week of left facial swelling and pain found to have cellulitis with a possible developing abscess on facial CT being admitted for IV antibiotics. Patient seen at bedside with her daughter present. Patient stated 1 week ago she started noticing the swelling and pain of her face which has fluctuated since it started however over the past day has rapidly progressed. She has picked at her face and does have a scab on it. She has been able to eat and drink okay, denies any difficulty with swallowing. She denies any fevers, chills, chest pain, shortness of breath. She and her daughter both stated she felt "off "and "unsteady "today. Patient has been using a rolling walker after her fall resulting in a hip fracture earlier this summer. She denies any falls since the event. Patient is unsure if she took her home medications this morning however most definitely missed her evening medications, will order on admission. She wishes to be full code. Please note that patient's daughter Sharifa is camping and unavailable by phone this weekend. Contact points will be her other daughter, Maida Ojeda, [phone] or her granddaughter, Kary Montes, [phone]. Allergies Allergy/AdvReac Type Severity Reaction Status Date / Time No Known Allergies Allergy Verified 08/27/24 10:47 Home Medications Medication Instructions Recorded Confirmed Type lisinopril 10 1 tab PO QAM 07/26/18 11/23/24 History mg-hydrochlorothiazide 12.5 mg tablet lovastatin 10 mg tablet 10 mg PO QAM 11/04/19 11/23/24 History omeprazole 20 mg capsule,delayed 20 mg PO DAILY 01/30/23 11/23/24 History release amitriptyline 10 mg tablet 10 mg PO HS 08/07/24 11/23/24 History calcium 600 mg (as 1 cap PO BID #60 caps 08/17/24 11/23/24 Rx carbonate)-vitamin D3 12.5 mcg (500 unit) capsule (Calcium with Vit D3) magnesium hydroxide 400 mg/5 mL 30 ml PO DAILY PRN #0 mL 08/17/24 11/23/24 Rx oral suspension (Milk of Magnesia) polyethylene glycol 3350 17 gram 17 g PO BID17 #0 ea 08/17/24 11/23/24 Rx oral powder packet (Miralax) Past Med/Surg History Problem List Facial abscess Facial cellulitis (Acute) HTN (hypertension) Ambulatory dysfunction Closed fracture of neck of left femur (Acute) Acute deep vein thrombosis (DVT) of distal vein of right lower extremity Arthritis Common bile duct dilatation Abnormal LFTs Hypokalemia Choledocholithiasis (Acute) Choledocholithiasis Bilateral leg pain (Acute) Chest pain (Acute) Palpitations (Acute) Black stool Bright red blood per rectum (Acute) Epigastric pain DVT prophylaxis Diverticulitis of jejunum (Acute) Encounter for pre-operative examination Anemia Gastritis Hemorrhoids Medical History Anemia hx of Diverticular disease Gastritis Poor historian Hearing deficit [place] Hyperlipemia Surgical History Hx laparoscopic cholecystectomy (02/01/23) Robotic Laparoscopic Cholecystectomy(Not Applicable) - Zhang Shetty DO, FACS History of right cataract surgery History of esophagogastroduodenoscopy (EGD) History of colonoscopy Hx of left inguinal hernia repair History of right inguinal hernia repair History of tubal ligation History of tooth extraction H/O varicose vein stripping History of hemorrhoidectomy Family History Mother Family history of diabetes mellitus Social History Smoking Status: Never smoker Second Hand Exposure: No; Do You Dip or Chew Tobacco: No; Tobacco Cessation Education Requested by Patient: No Hx Alcohol Use: No Hx Substance Use: No Preferred Language: Bhutanese Communication Ability: Effective Communication Ability Comment: [employer] [place] [employer] Required: No Beliefs That Will Affect Care: None Current Living Situation: Alone Other Information That Helps Us Care for You: No Feels Safe at Home: Yes Safety Concerns: Feels Safe At This Time Assistive Devices: Denture - Upper, Glasses, Hearing Aid - Bilateral and Walker Review of Systems Review of Systems: see HPI Physical Exam Physical Exam: The patient is awake, alert and oriented 3, well developed and well nourished, normocephalic and atraumatic, in no acute distress. Non-toxic appearing. HEENT- EOMI, mucous membranes moist. Hearing grossly intact. Left facial eryth ashley, tenderness, warmth. Low border marked with surgical marker by ED. Heart-normal S1 and S2. No murmurs, rubs or gallops. Lungs-clear bilaterally, no respiratory distress, no accessory muscle use. Abdomen-normal bowel sounds and soft. No ascites noted. Non-tender. Extremities- no clubbing, cyanosis, or edema. Rheumatologic-normal range of motion. Psychiatric-normal affect. Results & Data Results & Data Vital Signs (Past 12 Hours) Vital Signs Temp Pulse Resp BP Pulse Ox O2 Del Method 11/23/24 20:30 85 18 11/23/24 19:21 83 24 156/92 H 96 11/23/24 18:08 86 16 150/102 H 11/23/24 16:00 91 H 23 134/79 93 Room Air 11/23/24 15:58 96 H 11/23/24 14:52 36.9 C 106 H 19 138/82 95 Room Air Laboratory Results Lab Results 11/23/24 Range/Units 15:44 WBC 12.60 H (4.8-10.8) K/ul RBC 5.20 (4.20-5.40) M/uL Hgb 15.4 (12.0-16.0) g/dl Hct 46.5 (37.0-47.0) % MCV 89.4 (80.0-100.0) fL MCH 29.6 (25.0-34.0) pg MCHC 33.1 (32.0-36.0) g/dL RDW Std Deviation 45.2 (36.4-46.3) fL RDW Coeff of Vanesa 13.8 (11.5-14.5) % Plt Count 271 (130-400) K/uL MPV 11.1 (9.4-12.4) fL Immature Gran % (Auto) 1.0 % Neut % (Auto) 74.3 % Lymph % (Auto) 9.9 % [place] % (Auto) 14.5 % Eos % (Auto) 0.1 % Baso % (Auto) 0.2 % Neut # (Auto) 9.37 H (1.40-6.50) K/uL Lymph # (Auto) 1.25 (1.20-3.40) K/uL [place] # (Auto) 1.83 H (0.11-0.59) K/uL Eos # (Auto) 0.01 (0.00-0.50) K/uL Baso # (Auto) 0.02 (0.00-0.20) K/uL Immature Gran # (Auto) 0.12 (0.01-0.20) K/uL PT 11.0 (9.0-12.0) Seconds INR 1.0 (0.9-1.1) Sodium 134 L (136-145) mmol/L Potassium 3.9 (3.5-5.1) mmol/L Chloride 97 L (98-107) mmol/L Carbon Dioxide 29 (21-32) mmol/L Anion Gap 8 (3-11) BUN 23 (6-23) mg/dl Creatinine 0.78 (0.6-1.2) mg/dl Est Cr Clr Drug Dosing 39.1 ml/min eGFR 73.01 BUN/Creatinine Ratio 29.5 H (10-20) Glucose 116 H (70-99(Fasting)) mg/dl Calcium 10.1 (8.6-10.3) mg/dl Total Bilirubin 0.7 (0.2-1.0) mg/dl AST 27 (13-39) U/L ALT 22 (7-52) U/L Alkaline Phosphatase 89 (34-104) U/L Total Protein 8.3 (6.0-8.3) gm/dl Albumin 4.6 (3.4-5.0) gm/dl Globulin 3.7 (2.5-4.0) gm/dl Albumin/Globulin Ratio 1.2 (0.9-2) Diagnostic Findings reviewed face CT Medications Administered ED - rocephin 2g IV, Tylenol 650 mg p.o., NSS 500 mL at 125 mL/hour Code Status & VTE Plan Code Status full VTE Prophylaxis Plan VTE Prophylaxis will be ordered: Yes Supervising Physician Co-Signing Physician Notes Patient seen and examined, chart reviewed, case discussed with TJ Armstrong and I agree with the assessment and plan as above. In brief, patient is an 89yo female presenting with left facial cellulitis, possible developing abscess Nontoxic on exam Area of swelling with eschar on left cheek, surrounding warmth, redness and tenderness Remainder of exam unremarkable Labs and images reviewed WBC=12.6 +MRSA nasal Assessment/plan - facial cellulitis, possible developing abscess, MRSA nares POSITIVE -Warm compresses -Unasyn and Vancomycin for now -Pain control -Remainder as above PG Care Time/CCT Total # of Minutes Spent Total Time Spent with Patient: Total time spent is greater than 50% in coordination of care (as documented) at patient's floor/unit and/or counseling patient: Coding Level of Care Code 67633 INT INP/OBS CARE 375MIN Diagnoses Facial cellulitis L03.211 Facial abscess L02.01 Ambulatory dysfunction R26.2
[2024-11-23] MEDS: VANCOMYCIN HCL 1,250 MG in SODIUM CHLORIDE 0.9% 250 ML IV STA (22:33)
[2024-11-23] MEDS ORDERED: MELATONIN 3 MG TAB PO PRN (23:21)
[2024-11-23] MEDS ORDERED: ONDANSETRON INJ 2 MG/ML 2 ML VIAL IV PRN (23:21)
[2024-11-23] MEDS ORDERED: ACETAMINOPHEN 325 MG TAB PO PRN (23:21)
[2024-11-23] MEDS: ENOXAPARIN INJ 40 MG/0.4 ML SYR SQ SCH (23:56)
[2024-11-23] MEDS: AMITRIPTYLINE HCL 10 MG TAB PO SCH (23:56)
[2024-11-24 00:12] LABS: Appearance Urine Clear (Clear); Bacteria Urine Automated None Seen (None Seen); Cast Urine Automated 0-2 /lpf (0-2); Epithelial Cell Urine Auto 0-2 /hpf (0-2); Glucose Urine UA Negative (Negative); RBC Urine Automated 0-2 /hpf (0-2); WBC Urine Automated 0-5 /hpf (0-5)
[2024-11-24] MEDS: AMPICILLIN/SULBACTAM SOD 3,000 MG/100 ML BAG IV SCH (00:30)
[2024-11-24] MEDS: VANCOMYCIN HCL 1,000 MG in SODIUM CHLORIDE 0.9% 250 ML IV SCH (06:21)
[2024-11-24 06:58] LABS: Hematocrit (blood only) 42.8 % (37.0-47.0); Hemoglobin 14.0 g/dl (12.0-16.0); Immature Granulocytes # (auto) 0.08 K/uL (0.01-0.20); Immature Granulocytes % (auto) 0.8 %; Mean Corpuscular Hemoglobin 29.0 pg (25.0-34.0); Mean Corpuscular Volume 88.8 fL (80.0-100.0); Platelet Count 250 K/uL (130-400); RDW Standard Deviation 45.1 fL (36.4-46.3); Red Blood Count 4.82 M/uL (4.20-5.40); White Blood Count 9.82 K/ul (4.8-10.8)
[2024-11-24 07:27] LABS: Anion Gap 8.0 (3-11); Blood Urea Nitrogen 17.0 mg/dl (6-23); Calcium 9.5 mg/dl (8.6-10.3); Carbon Dioxide 29.0 mmol/L (21-32); Chloride 102.0 mmol/L (98-107); Creatinine Clr Calc Pharmacy 45.9 ml/min; Glucose 98.0 mg/dl (70-99(Fasting)); Potassium 3.7 mmol/L (3.5-5.1); Sodium 139.0 mmol/L (136-145)
[2024-11-24] MEDS: LISINOPRIL/HCTZ 10/12.5MG TAB PO SCH (07:54)
[2024-11-24] MEDS: LOVASTATIN 20 MG TAB PO SCH (07:55)
--- NOTE | 2024-11-24 08:16 | Hospitalist Progress Note ---
Date of Service November 24, 2024 Assessment & Plan (1) Facial cellulitis: (2) Facial abscess: (3) Ambulatory dysfunction: Plan Patient is an 89-year-old female with past medical history of DVT (2022), HTN, HLD, GERD, anemia. Patient presented due to 1 week of left facial swelling and pain found to have cellulitis with a possible developing abscess on facial CT #left facial cellulitis Face CT noted cellulitic changes in the left face/cheek with skin thickening and subcutaneous edema, 1.5 cm area of hypodensity just deep to skin that may represent a developing abscess. Leukocytosis resolved, afebrile There is an area of central firmness near the eschar that is early abscess or phlegmonous that corresponds to the CT. Eschar is still intact with punctate areas of draining pus. Cellulitis still significant and is on the face/neck, requires ongoing hospitalization for IV antibiotics -continue unasyn and vancomycin -continue warm compresses -may spontaneously drain soon, will likely need interval reimaging potentially ultrasound -unclear whether she will need I&D -will culture the scant pus drainage #Ambulatory dysfunction rolling walker since fall resulting in hip fracture August 2024. Patient noted some increased unsteadiness - UA neg PT/OT ordered #Meningiomaincidental finding on face CT noted probable meningioma measuring 1.2 cm in the left middle cranial fossa - unlikely to be symptomatic within her lifespan Follow with PCP #HTNcontinue lisinoprilHCTZ #Mental healthcontinue amitriptyline #HLDcontinue statin #GERDcontinue PPI VTE ppx: Lovenox 40 sq daily, hx of DVT in 2022 Admission and Anticipated Discharge Date Admission Date: November 23, 2024 Subjective left facial swelling and pain seem unchanged to her no other issues Physical Exam 2 Physical Exam: Last 24h vitals reviewed GEN: no acute distress, sitting on EOB, moves around very well HEENT: pupils equal, sclerae anicteric, moist MM Left cheek with erythema induration and warmth, central part with 1 cm dark eschar and firm area below, cellulitis has receded from the markings from the ED does extend to preauricular area no pain on movement of pinna, not overlying mastoid which is nontender RESP: normal WOB, CTAB CV: reg no mrg ABD: : no soto SKIN: warm and dry, no generalized rashes EXT: no edema NEURO: AOx person, place, and situation. Face symmetric, speech normal, moves 4 ext spontaneously and equally Results & Data Results & Data Vital Signs (Past 12 Hours) Vital Signs Temp Pulse Pulse Resp BP BP Pulse Ox 11/23/24 23:20 36.5 C 73 18 139/83 95 11/23/24 23:03 73 18 109/66 94 11/23/24 22:03 80 14 130/74 95 11/23/24 20:30 85 18 O2 Del Method 11/23/24 23:20 Room Air 11/23/24 23:03 Room Air 11/23/24 22:03 Room Air 11/23/24 20:30 Laboratory Results 11/24/24 06:28 11/24/24 06:28 reviewed CBC BMP LFT UA and these are all normal/unremarkable personally reviewed facial CT films - soft tissue thickening c/w cellulitis, I can see the small area of phlegmon or early abscess which does correlate with physical exam PG Care Time/CCT Total # of Minutes Spent Total Time Spent with Patient: Total time spent is greater than 50% in coordination of care (as documented) at patient's floor/unit and/or counseling patient: Coding Level of Care Code 32470 SUB INP/OBS CARE 2/35MIN Diagnoses Facial cellulitis L03.211 Facial abscess L02.01 Ambulatory dysfunction R26.2
[2024-11-24] MEDS: POLYETHYLENE (MIRALAX) 17 GM PACK PO SCH (09:16)
--- NOTE | 2024-11-24 12:34 | Pharmacy Report ---
Pharmacy PK ABX Note - Date of Service November 24, 2024 - Assessment and Plan Assessment 89 year old F receiving vancomycin and ampicillin/sulbactam for treatment of L facial cellulitis. Pertinent microbiologic data includes: MRSA PCR positive. * Received ceftriaxone, vanc in ED - switched to Unasyn * WBC elevated, afebrile * CT face noted cellulitic changes in left face/cheek with subcutaneous edema, potential developing abscess Day #1 of antimicrobial therapy. Plan Vancomycin * Loading dose: 1250 mg IV x 1 * Maintenance dose: 1000 mg IV every 24 hours * Regimen is predicted to achieve target AUC/DO of 400-600 mg/L.hr * Random level ordered for: 11/25/24 @0444 Pharmacy will continue to follow and will adjust dose/frequency as necessary. Thank you. Pharmacy has transitioned to AUC monitoring for vancomycin. AUC/DO is the preferred PK/PD target and is associated with decreased risk of nephrotoxicity compared to traditional trough targets.
[2024-11-25] MEDS: VANCOMYCIN LEVEL ONE (05:08)
[2024-11-25 05:25] LABS: Creatinine Clr Calc Pharmacy 34.2 ml/min
--- NOTE | 2024-11-25 07:55 | Pharmacy Report ---
Pharmacy PK ABX Note - Date of Service November 25, 2024 - Assessment and Plan Assessment 11/25: * Random vancomycin level this AM was ~8.8 mcg/ml - current dosing predicting AUC/DO <400, therefore will adjust to 1000 mg iv q 18 hours to achieve goal AUC/DO 400-600 * Plan to order another level in 2 days if still continued 11/23: * 89 year old F receiving vancomycin and ampicillin/sulbactam for treatment of L facial cellulitis. Pertinent microbiologic data includes: MRSA PCR positive. * Received ceftriaxone, vanc in ED - switched to Unasyn * WBC elevated, afebrile * CT face noted cellulitic changes in left face/cheek with subcutaneous edema, potential developing abscess Plan Vancomycin * Increase to 1000 mg iv q 18 hours * Will repeat another level in ~2 days to ensure stable Pharmacy will continue to follow and will adjust dose/frequency as necessary. Thank you. Pharmacy has transitioned to AUC monitoring for vancomycin. AUC/DO is the preferred PK/PD target and is associated with decreased risk of nephrotoxicity compared to traditional trough targets.
--- NOTE | 2024-11-25 18:01 | Hospitalist Progress Note ---
Date of Service November 25, 2024 Assessment & Plan (1) Facial cellulitis: (2) Facial abscess: (3) Ambulatory dysfunction: Plan Patient is an 89-year-old female with past medical history of DVT (2022), HTN, HLD, GERD, anemia. Patient presented due to 1 week of left facial swelling and pain found to have cellulitis with a possible developing abscess on facial CT #left facial cellulitis and abscess Face CT noted cellulitic changes in the left face/cheek with skin thickening and subcutaneous edema, 1.5 cm area of hypodensity just deep to skin that may represent a developing abscess. Leukocytosis resolved, afebrile cellulitis has improved and that it has receded significantly but remains severely indurated in the central area, there is at least some abscess present and I was able to manually express pus and sent for culture -continue unasyn and vancomycin -continue warm compresses - spontaneously draining at this point, however if induration and erythema nonresolving would need repeat imaging for residual abscess - follow-up culture Gram stain still would benefit from IV antibiotics at this point #Ambulatory dysfunction rolling walker since fall resulting in hip fracture August 2024. Patient noted some increased unsteadiness - UA neg PT/OT ordered #Meningiomaincidental finding on face CT noted probable meningioma measuring 1.2 cm in the left middle cranial fossa - unlikely to be symptomatic within her lifespan Follow with PCP #HTNcontinue lisinoprilHCTZ #Mental healthcontinue amitriptyline #HLDcontinue statin #GERDcontinue PPI VTE ppx: Lovenox 40 sq daily, hx of DVT in 2022 Admission and Anticipated Discharge Date Admission Date: November 24, 2024 Subjective she has improvement in tenderness of left face and cheek, not very painful at this point. she has been using hot compresses faithfully Physical Exam 2 Physical Exam: Last 24h vitals reviewed GEN: no acute distress, sitting on EOB HEENT: pupils equal, sclerae anicteric, moist MM Left cheek with erythema induration and warmth, substantially receded from markings placed in ED. Central area continues to have really significant induration. Eschar is dissolving after hot compresses and has pinpoint areas of pus draining from several tracts. I was able to manually express at least 0.51-1 cc of pus which I sent for culture and Gram stain RESP: normal WOB CV: ABD: : no soto SKIN: warm and dry, no generalized rashes EXT: no edema NEURO: AOx person, place, and situation. Face symmetric, speech normal, moves 4 ext spontaneously and equally Results & Data Results & Data Vital Signs (Past 12 Hours) Vital Signs Temp Pulse Resp BP Pulse Ox O2 Del Method 11/25/24 15:17 36.5 C 84 16 136/80 98 Room Air 11/25/24 07:50 36.4 C L 84 16 147/84 H 98 Room Air Laboratory Results 11/24/24 06:28 11/25/24 04:48 PG Care Time/CCT Total # of Minutes Spent Total Time Spent with Patient: Total time spent is greater than 50% in coordination of care (as documented) at patient's floor/unit and/or counseling patient: Coding Level of Care Code 26252 SUB INP/OBS CARE 2/35MIN Diagnoses Facial cellulitis L03.211 Facial abscess L02.01 Ambulatory dysfunction R26.2
[2024-11-25] MEDS: VANCOMYCIN HCL 1,000 MG in SODIUM CHLORIDE 0.9% 250 ML IV SCH (23:59)
[2024-11-26 08:07] LABS: Creatinine Clr Calc Pharmacy 34.6 ml/min
--- NOTE | 2024-11-26 18:56 | Hospitalist Progress Note ---
Date of Service November 26, 2024 Assessment & Plan (1) Facial cellulitis: (2) Facial abscess: (3) Ambulatory dysfunction: Plan Patient is an 89-year-old female with past medical history of DVT (2022), HTN, HLD, GERD, anemia. Patient presented due to 1 week of left facial swelling and pain found to have cellulitis with a possible developing abscess on facial CT #left facial cellulitis and abscess Face CT noted cellulitic changes in the left face/cheek with skin thickening and subcutaneous edema, 1.5 cm area of hypodensity just deep to skin that may represent a developing abscess. Leukocytosis resolved, afebrile cellulitis is much improved, central abscess area draining less, only expressed a little pus. induration still present but improving culture with GPCs, growing staph aureus as expected - sensi pending -continue unasyn and vancomycin -continue warm compresses -spontaneously draining at this point, likely to resolve without I&D still would benefit from IV antibiotics at this point -probably home on orals tomorrow #Ambulatory dysfunction rolling walker since fall resulting in hip fracture August 2024. Patient noted some increased unsteadiness - UA neg PT/OT - walked 250 feet, rec'd home with supervision. OT rec home HH OT eval #Meningiomaincidental finding on face CT noted probable meningioma measuring 1.2 cm in the left middle cranial fossa - unlikely to be symptomatic within her lifespan Follow with PCP #HTNcontinue lisinoprilHCTZ #Mental healthcontinue amitriptyline #HLDcontinue statin #GERDcontinue PPI VTE ppx: Lovenox 40 sq daily, hx of DVT in 2022 Admission and Anticipated Discharge Date Admission Date: November 24, 2024 Subjective cheek abscess drained pus overnight but by midday scant drainage swelling is down not too painful Physical Exam 2 Physical Exam: Last 24h vitals reviewed GEN: no acute distress, sitting on EOB HEENT: pupils equal, sclerae anicteric, moist MM L cheek with 1.2 cm wound covered with yellow exudate, surrounding induration and erythema much improved, surrounding cellulitis resolving. I was only able to express a small amount of pus RESP: normal WOB CV: ABD: : no soto SKIN: warm and dry, no generalized rashes EXT: no edema NEURO: AOx person, place, and situation. Face symmetric, speech normal, moves 4 ext spontaneously and equally Results & Data Results & Data Vital Signs (Past 12 Hours) Vital Signs Temp Pulse Resp BP Pulse Ox O2 Del Method 11/26/24 14:23 36.6 C 86 18 137/83 98 Room Air 11/26/24 07:42 36.5 C 76 16 116/72 91 Room Air Laboratory Results 11/24/24 06:28 11/26/24 07:11 PG Care Time/CCT Total # of Minutes Spent Total Time Spent with Patient: Total time spent is greater than 50% in coordination of care (as documented) at patient's floor/unit and/or counseling patient: Coding Level of Care Code 48983 SUB INP/OBS CARE 2/35MIN Diagnoses Facial cellulitis L03.211 Facial abscess L02.01 Ambulatory dysfunction R26.2
[2024-11-26] MEDS: GABAPENTIN 100 MG CAP PO SCH (20:41)
[2024-11-26] MEDS ORDERED: Nursing to Pharmacy Communication SCH (21:00)
[2024-11-27 06:20] LABS: Creatinine Clr Calc Pharmacy 37.5 ml/min
--- NOTE | 2024-11-27 07:39 | Pharmacy Report ---
Pharmacy PK ABX Note - Date of Service November 27, 2024 - Assessment and Plan Assessment 11/27: * Random vancomycin level ~13.8 mcg/ml - current dosing associated with goal AUC/DO 400-600 therefore will continue current regimen. Face culture with MRSA 11/25: * Random vancomycin level this AM was ~8.8 mcg/ml - current dosing predicting AUC/DO <400, therefore will adjust to 1000 mg iv q 18 hours to achieve goal AUC/DO 400-600 * Plan to order another level in 2 days if still continued 11/23: * 89 year old F receiving vancomycin and ampicillin/sulbactam for treatment of L facial cellulitis. Pertinent microbiologic data includes: MRSA PCR positive. * Received ceftriaxone, vanc in ED - switched to Unasyn * WBC elevated, afebrile * CT face noted cellulitic changes in left face/cheek with subcutaneous edema, potential developing abscess Plan Vancomycin * Continue 1000 mg iv q 18 hours Pharmacy will continue to follow and will adjust dose/frequency as necessary. Thank you. Pharmacy has transitioned to AUC monitoring for vancomycin. AUC/DO is the preferred PK/PD target and is associated with decreased risk of nephrotoxicity compared to traditional trough targets.
[2024-11-27 07:46] VITALS: PULSE 70
--- NOTE | 2024-11-27 09:55 | Discharge Summary ---
Discharge Summary Date of Service November 27, 2024 Principal Dx & Hospital Course #1 = Principal Diagnosis (1) Facial cellulitis: (2) Facial abscess: (3) Ambulatory dysfunction: Plan Patient is an 89-year-old female with past medical history of DVT (2022), HTN, HLD, GERD, anemia. Patient presented due to 1 week of left facial swelling and pain found to have cellulitis with a possible developing abscess on facial CT #left facial cellulitis and abscess Face CT noted cellulitic changes in the left face/cheek with skin thickening and subcutaneous edema, 1.5 cm area of hypodensity just deep to skin that may represent a developing abscess. Leukocytosis resolved, afebrile Treated with unasyn and vancomycin as well as warm compresses. Spontaneously drained small amount of pus which I expressed and sent for culture = MRSA sensitive to doxy, clinda, bactrim Had some mild drainage and small amount of expressible pus for two days Day of discharge cellulitis had resolved, no expressible pus, area around the cheek wound much less indurated Safe for discharge on po doxycycline, she will keep doing hot compresses, return precautions discussed with Suzi and with her daughter by phone # neuropathic pain (actually itching) left face V2 distribution ever since bout of shingles. Amitriptyline has been ineffective. Wakes up at night scratching at her face. Picking led to infection above -did well after 100 mg gabapentin last night, slept very well -held amitriptyline and gave Rx for gabapentin 100 mg HS. Follow up in primary care #Ambulatory dysfunction rolling walker since fall resulting in hip fracture August 2024. Patient noted some increased unsteadiness - UA neg PT/OT - walked 250 feet, rec'd home with supervision. OT rec home HH OT eval #Meningiomaincidental finding on face CT noted probable meningioma measuring 1.2 cm in the left middle cranial fossa - unlikely to be symptomatic within her lifespan Follow with PCP #HTNcontinue lisinoprilHCTZ #Mental healthcontinue amitriptyline #HLDcontinue statin #GERDcontinue PPI Notes For Next Care Provider MRSA cellulitis and minimal abscess L cheek Neuropathic itching left V2 from shingles Medication Changes From Visit Infection nearly resolved - oral doxycycline Trial low dose gabapentin for facial itching, held amitriptyline Admission HPI Per Admitting Provider Patient is an 89-year-old female with past medical history of DVT (2022), HTN, HLD, GERD, anemia. Patient presented due to 1 week of left facial swelling and pain found to have cellulitis with a possible developing abscess on facial CT being admitted for IV antibiotics. Patient seen at bedside with her daughter present. Patient stated 1 week ago she started noticing the swelling and pain of her face which has fluctuated since it started however over the past day has rapidly progressed. She has picked at her face and does have a scab on it. She has been able to eat and drink okay, denies any difficulty with swallowing. She denies any fevers, chills, chest pain, shortness of breath. She and her daughter both stated she felt "off "and "unsteady "today. Patient has been using a rolling walker after her fall resulting in a hip fracture earlier this summer. She denies any falls since the event. Patient is unsure if she took her home medications this morning however most definitely missed her evening medications, will order on admission. She wishes to be full code. Please note that patient's daughter Sharifa is camping and unavailable by phone this weekend. Contact points will be her other daughter, Maida Ojeda, [phone] or her granddaughter, Kary Montes, [phone]. Discharge Exam Last 24h vitals reviewed GEN: no acute distress, sitting on EOB HEENT: pupils equal, sclerae anicteric, moist MM L cheek with 1.2 cm wound covered with yellow exudate and I could not express pus today, surrounding induration much better, cellulitis/erythema resolved RESP: normal WOB CV: ABD: : no soto SKIN: warm and dry, no generalized rashes EXT: no edema NEURO: AOx person, place, and situation. Face symmetric, speech normal, moves 4 ext spontaneously and equally Discharge Plan Discharge Items Patient Disposition: Home - Home Health Services Reason For Visit: CELLULITIS Discharge Diagnosis: Left facial MRSA cellulitis and abscess Condition on Discharge: Good Activity: Resume your previous activity Non-emergency contact: Primary Care Provider Call non-emergency contact if: you have any medication questions, your symptoms worsen, your wound has increased redness and your wound pain has increased Follow-up/Referrals: Pamela Nye PA-C [Primary Care Provider] - 12/05/24 9:45 am (HOSPITAL FOLLOW UP WILL BE AT [address] [place] [address] ; [address]; [place] [address]) Diet: Regular Addtl Attending Provider Instructions: You were treated for facial skin infection (cellulitis) and small abscess caused by MRSA staph bacteria The abscess drained spontaneously and the cellulitis has basically resolved Keep using hot washcloths on the wound for the next few days. There is a tiny bit of pus left that may drain spontaneously. I prescribed antibiotic (doxycycline) Doxycycline can cause a sun sensitive rash, so stay away from too much sun until you finish it Sometimes it causes upset stomach, call your doctor to change antibiotics if this is very bothersome See your primary care provider early next week to check on it Seek medical attention if your cheek swells back up, for increasing pain or redness, or fevers To prevent infections like this - cut your fingernails short and NO PICKING! Wash your hands regularly with soap and water or use hand project production engineer If you have crust or scab in your nose, put some vaseline or aquaphor on a Q-tip and spread it on the scab to moisten it and help with healing. Do not pick off the scab. Staph normally lives in people's noses When you get home you should wash your bed linens, towels, underwear in hot water with some bleach if possible to decontaminate it from staph. Your left sided facial itching is probably nerve damage from your bout of shingles I don't think that the amitriptyline is helping much, so you can stop this We will try a low dose of gabapentin at bedtime. This seemed to help with your sleep and itching last night. It was a pleasure taking care of you in the hospital, Shalonda Johnson MD Pending Studies at Discharge: No Stand-Alone Forms: My [facility] [employer], Smoking Cessation Medications and DC Order Prescriptions: New gabapentin 100 mg Capsule 100 mg PO HS Qty: 30 0RF doxycycline hyclate 100 mg capsule 100 mg PO BID 7 Days Qty: 14 0RF Continued lisinopril-hydrochlorothiazide 10-12.5 mg Tablet 1 tab PO QAM lovastatin 10 mg tablet 10 mg PO QAM omeprazole 20 mg capsule,delayed release(DR/EC) 20 mg PO DAILY polyethylene glycol 3350 [Miralax] 17 gram Powder In Packet 17 g PO BID17 Qty: 0 0RF magnesium hydroxide [Milk of Magnesia] 400 mg/5 mL Suspension 30 ml PO DAILY PRNQty: 0 0RF calcium carbonate-vitamin D3 [Calcium 600 with Vitamin D3] 600 mg-12.5 mcg (500 unit) capsule 1 cap PO BID Qty: 60 0RF Held amitriptyline 10 mg tablet 10 mg PO HS Hold Instructions: Hold this and see if the gabapentin works better Discharge Orders: Discharge Order (Routine); Ordered 11/27/24 Ordered By: Shalonda Montes/Other Patient Handouts: Staph MRSA Admission Data Admit Date/Time: 11/24/24 17:19 Attending Provider: Shalonda Johnson Admit Provider: Nanci Nichole Primary Care Provider: Pamela Nye Other Providers: Nanci Nichole; [facility] Other Interventions: Discharge Summary Assessment (RN) Last Done: 11/27/24 15:24 Hospital Stay Data Consultations 11/23/24 21:07 ED Decision to Admit Stat Diagnostic Imagining Performed 11/23/24 15:14 CT facial bones w con Stat Pending Results Patient Have Any Pending Studies at Discharge: No Discharge Instructions Given to Patient (Per Discharging Provider) You were treated for facial skin infection (cellulitis) and small abscess caused by MRSA staph bacteria The abscess drained spontaneously and the cellulitis has basically resolved Keep using hot washcloths on the wound for the next few days. There is a tiny bit of pus left that may drain spontaneously. I prescribed antibiotic (doxycycline) Doxycycline can cause a sun sensitive rash, so stay away from too much sun until you finish it Sometimes it causes upset stomach, call your doctor to change antibiotics if this is very bothersome See your primary care provider early next week to check on it Seek medical attention if your cheek swells back up, for increasing pain or redness, or fevers To prevent infections like this - cut your fingernails short and NO PICKING! Wash your hands regularly with soap and water or use hand project production engineer If you have crust or scab in your nose, put some vaseline or aquaphor on a Q-tip and spread it on the scab to moisten it and help with healing. Do not pick off the scab. Staph normally lives in people's noses When you get home you should wash your bed linens, towels, underwear in hot water with some bleach if possible to decontaminate it from staph. Your left sided facial itching is probably nerve damage from your bout of shingles I don't think that the amitriptyline is helping much, so you can stop this We will try a low dose of gabapentin at bedtime. This seemed to help with your sleep and itching last night. It was a pleasure taking care of you in the hospital, Shalonda Johnson MD Total Time Total Time Spent Total Time Spent (In Minutes): I personally spent: 40 minutes today on clinical care activities including: reviewing chart notes and vital signs reviewing labs - micro examining and counseling the patient counseling the patient's family - daughter by phone writing prescriptions, discharge instructions documentation Coding Level of Care Code 09293 INP/OBS DISCH >30 MIN Diagnoses Facial cellulitis L03.211 Facial abscess L02.01 Ambulatory dysfunction R26.2
[2024-11-27 15:30] VITALS: BP 128/78; RESP 20; TEMP 98.1; O2SAT 93
--- NOTE | 2024-11-28 10:38 | Pharmacy Report ---
ED Pharmacist Progress Note - ED Pharmacist Progress Note Date of Service:: November 28, 2024 Notes:: Received call from patient regarding prescription for cephalexin Dr. Babcock prescribed on 11/23. She was just discharged from the hospital on 11/27. Reviewed patient chart and discharge instructions. Patient was admitted for a facial cellulitis- culture growing MRSA. Discharge instructions to take doxycycline 100 mg BID. Cephalexin prescription appears to be cancelled but was likely picked up before this fax was received by the pharmacy. Discussed with patient to take the doxycycline 100 mg BID per her discharge instructions as this would treat the bacteria that was growing from her culture. Dr. Babcock likely transmitted prescription prior to admission/prior to cultures, she should not take the cephalexin. Patient verbalized understanding.
== END 2024-11-27 16:00 | disposition home health service (06) | DRG 603 ==
LOC: 3N 14:44 → ED 14:44 → SUATTDRO 21:51 → 3W 23:04
DX: I10 Essential (primary) hypertension; K21.9 Gastro-esophageal reflux disease without esophagitis; E78.5 Hyperlipidemia, unspecified; L03.211 Cellulitis of face; C79.49 Secondary malignant neoplasm of other parts of nervous system; Z79.899 Other long term (current) drug therapy; L02.01 Cutaneous abscess of face; R26.89 Other abnormalities of gait and mobility